=== PATIENT | male | born 1940 | race Caucasian/White ===

== ENCOUNTER 2019-06-22 13:22 | Observation (INO) | payer OTHER ==
--- OUTSIDE RECORDS SUMMARY | 2019-06-22 13:26 | XMS REPORT | Clinical Summary ---
:1940 Author Organization [facility] Address [address] [place] [address] Care Team Providers Name Role Phone José Miguel Fish Primary Care Provider Hernandez Gabriel MD Unavailable Unavailable Allergies No Known Allergies Medications Medication Sig Dispensed Refills Start Date End Date Status pantoprazole (PROTONIX) Take 40 mg by 0 Active 40 MG tablet mouth daily. LORazepam (ATIVAN) 1 MG Take 2-4 mg by 0 Active tablet mouth every night as needed. lisinopril Take 5 mg by 0 Active (PRINIVIL,ZESTRIL) 5 MG mouth 2 (two) tablet times daily. carvedilol (COREG) 6.25 Take 6.25 mg by 0 Active MG tablet mouth 2 (two) times daily with breakfast and dinner. aspirin 81 mg Tab Take 1 tablet (81 60 each 0 03/11/2014 Active mg total) by mouth daily. simvastatin (ZOCOR) 40 Take 40 mg by 0 Active MG tablet mouth nightly. warfarin (COUMADIN) 5 5 mg daily. With 0 03/20/2014 Active MG tablet 1 mg tablet for total dose 6 mg daily furosemide (LASIX) 40 Take 40 mg by 0 Active MG tabletIndications: mouth daily. Dilated cardiomyopathy (HCC), Ischemic cardiomyopathy, History of atrial fibrillation, History of sick sinus syndrome, History of ventricular tachycardia, Chronic anticoagulation, Hyperlipemia, Type 2 diabetes mellitus (HCC), Dilated cardiomyopathy (HCC), Anemia, CHF (congestive heart failure), chronic, systolic, CAD, multiple vessel, Hyperlipidemia, Endocarditis warfarin (COUMADIN) 1 Take 1 tablet (1 60 tablet 4 10/14/2014 Active MG tabletIndications: mg total) by Dilated cardiomyopathy mouth daily. With (HCC), Ischemic 5 mg tablet for cardiomyopathy, History total dose 6 mg of atrial fibrillation, daily History of sick sinus syndrome, History of ventricular tachycardia, Chronic anticoagulation, Hyperlipemia, Type 2 diabetes mellitus (HCC), Dilated cardiomyopathy (HCC), Anemia, CHF (congestive heart failure), chronic, systolic, CAD, multiple vessel, Hyperlipidemia, Endocarditis Active Problems Patient Care Coordination Note 1. Ischemic Cardiomyopathy- s/p TX in 03/25/2012. 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 6) Prostatism s/p TURP X 4 - this was complicated by incontinence- he uses a bladder stimulator - biggest problem - frequent urination 7) colonoscopy with polyp removals 8) bilateral carpel tunnel procedures 9) h/o tobacco abuse- quit in 1978 10) Chronic renal insufficiency CR 1.5 11) Chronic prostatism with TURP X 4 and chronic prostatism symptoms. Medications ASA 81 mgs daily Plavix 75 mgs daily Lisinopril 5 mgs bid Simvastatin 80 mgs daily Coreg 6.25bid Protonix 40 mgs daily Lorazepam 3 mgs qhs Calcium 1200 daily Vitamin D 1 gram daily Miralax prn Problem Noted Date Left inguinal hernia 07/11/2014 Endocarditis 03/12/2014 Overview: Probable vegetation at right atrial lead of the pacemaker per ECHO 02.12.2014, on ANCEF IV q 8 hours for 6 weeks Bacteremia 02/12/2014 Cellulitis of arm, left 02/11/2014 TIA (transient ischemic attack) 02/08/2014 Ischemic cardiomyopathy 10/04/2013 CAD, multiple vessel 08/02/2013 Dilated cardiomyopathy, w/LVEF 35-45%, mild-mod MR, mod TR, RSVP 40-50 2012 mmHg per Echo 09/28/2012 History of atrial fibrillation 08/02/2013 History of sick sinus syndrome 08/02/2013 History of ventricular tachycardia, s/p AICD in 200708/02/2013 History of BPH, h/o TURP and bladder stimulator 08/02/2013 Chronic anticoagulation Hyperlipidemia Immunizations Name Dates Previously Given Next Due Influenza TIV (IM) 08/02/2013 Pneumococcal Conjugate 7-Valent 08/09/2010 Family History Medical History Relation Name Comments Cancer Brother colon Heart disease Maternal Aunt Alcohol abuse Maternal Grandfather Alcohol abuse Mother Liver disease Mother Relation Name Status Comments Brother Father in wwII Maternal Aunt heart attack Maternal Grandfather Mother Social History Tobacco Use Types Packs/Day Years Used Date Former Smoker 1 Quit: 08/09/1978 Smokeless Tobacco: Former User Quit: 08/09/1983 Alcohol Use Drinks/Week oz/Week Comments No Sex Assigned at Date Recorded Not on file Job Start Date Occupation Industry Not on file Not on file Not on file Travel History Travel Start Travel End No recent travel history available. Last Filed Vital Signs Not on file Plan of Treatment Health Maintenance Due Date Last Done Comments INFLUENZA VACCINE 07/31/2018 Implants Implanted Type Area Completion Supervisor Device Shelf Model / Identifier Expiration Serial / Date Lot Mesh,Surgipro 3x5" Mmimp - Sn/A Mesh Left: [employer] GUILLAUME 01/28/2019 SPM-35 / Implanted: Qty: 1 on 07/12/2014 by Latoya Abraham MD [facility] N/A / [id number] Results Not on fileafter 06/21/2018 Insurance Payer Benefit Plan / Subscriber ID Type Phone Address Group [employer] - MEDICARE [employer] MEDICARE HMO xxxxxxxx [phone] [address] [place] [id number] Advance Directives For more information, please contact:[address] [place], [place] [phone] Code Status Date Activated Date Inactivated Comments Full Code 07/12/2014 11:10 AM 07/16/2014 7:22 PM This code status was determined by: Patient Full Code 07/11/2014 4:08 PM 07/12/2014 11:10 AM This code status was determined by: Patient Code ONE 02/08/2014 12:40 PM 02/15/2014 4:29 PM All possible means of support , including: cardiac massage, mechanical ventilation, and defibrillation will be used to support life. Code ONE 01/28/2014 12:05 PM 01/28/2014 3:00 PM All possible means of support , including: cardiac massage, mechanical ventilation, and defibrillation will be used to support life.
--- OUTSIDE RECORDS SUMMARY | 2019-06-22 13:27 | XMS REPORT | Continuity of Care Document ---
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 [facility] infarction [facility] AMI Active [facility] NOS-INITIAL Medical EPISODE Center Medications Medication Details Route Status Patient Ordering Order Source Instructions Provider Date Nitrostat 0.4 0.4 mg, 1 tab, SL Active [place] mg sublingual SL, Q5Min, 012 Medical tablet PRN, 100 tab, Center Chest Pain, Substitution Allowed carvedilol 3.125 mg, 1 PO Active Krishnan [place] 3.125 mg oral tab, PO, Q12H, 012 Medical tablet 60 tab, 3, 3, Center Substitution Allowed, TAB atorvastatin 80 80 mg, 1 tab, PO Active Krishnan [place] mg oral tablet PO, Bedtime, 012 Medical 30 tab, 3, 3, Center Substitution Allowed, TAB aspirin 325 mg 325 mg, 1 tab, PO Active Krishnan [place] tablet, enteric PO, Daily, 30 012 Medical coated tab, 3, 3, Center Substitution Allowed, ECTAB lisinopril 5 mg 2.5 mg, 0.5 PO Active Krishnan [facility] oral tablet tab, PO, Q12H, 012 Medical 30 tab, 3, 3, Center Substitution Allowed, TAB Fleet Enema 133 ml, Route: CO No Trey [facility] CO, Drug Form: Longer 012 Medical MARINA, ONCE, Active Center Start date: 03/28/12 17:30:00, Stop date: 03/28/12 17:30:00 lactulose 20 gm, 30 mL, PO No Trey [facility] Route: PO, Longer 012 Medical Drug Form: Active Center SYRP, Q2H, times 2 doses, Start date: 03/28/12 10:00:00, Duration: 2 doses or times, Stop date: 03/28/12 12:00:00 MiraLax 17 gm, 1 pkt, PO No David [facility] Route: PO, Longer 012 Medical Drug form: Active Center PWDR, ONCE, Start date: 03/27/12 18:09:00, Duration: 1 doses or times, Stop date: 03/27/12 18:09:00 isosorbide 10 mg, 1 tab, PO No Dabaghi [facility] dinitrate Route: PO, Longer 012 Medical Drug form: Active Center TAB, BID, Start date: 03/27/12 9:00:00, Duration: 30 day, Stop date: 04/25/12 17:00:00 ondansetron 4 mg, 2 mL, IV No [place] [facility] Route: IV, Longer 012 Medical Drug form: Active Center INJ, Q6H, PRN Nausea, Start date: 03/26/12 18:45:00, Duration: 30 day, Stop date: 04/25/12 18:44:00 Protonix 40 mg, 1 tab, PO No John [facility] Route: PO, Longer 012 Medical Drug form: Active Center ECTAB, Before Dinner, Start date: 03/26/12 16:30:00, Duration: 30 day, Stop date: 04/24/12 16:30:00 clopidogrel 75 mg, 1 tab, PO No Griffin [facility] Route: PO, Longer Azucena 012 Medical Drug form: Active Center TAB, Daily, Start date: 03/26/12 9:00:00, Duration: 30 day, Stop date: 04/24/12 9:00:00 nitroglycerin 0.5 inch, TOP No Dabaghi [facility] 2% topical Route: TOP, Longer 012 Medical ointment Drug Form: Active Center OINT, Q6H, Start date: 03/26/12 0:00:00, Duration: 30 day, Stop date: 04/24/12 18:00:00 metoprolol 100 100 mg, 1 tab, PO No [place] mg oral tablet PO, Daily, 180 Longer 012 Medical tab, Active Center Substitution Allowed, TAB Vitamin D 800 IntlUnit, Active [place] Substitution 012 Medical Allowed Center calcium 1,200 mg, Active [place] carbonate Substitution 012 Medical Allowed Center omeprazole 40 40 mg, 1 cap, PO Active [place] mg oral delayed PO, Daily, 90 012 Medical release capsule cap, Center Substitution Allowed, DRC lisinopril 5 mg 5 mg, 1 tab, PO No [place] oral tablet PO, Daily, 90 Longer 012 Medical tab, Active Center Substitution Allowed, TAB simvastatin unknown, PO, PO No [place] Daily, 30 tab, Longer 012 Medical Substitution Active Center Allowed Ativan 2 mg 2-3 tab, PO, PO Active [facility] oral tablet Bedtime, PRN, 012 Medical 20 tab, Center Anxiety, Substitution Allowed lisinopril 2.5 mg, 0.5 PO No Griffin [facility] tab, Route: Longer Azucena 012 Medical PO, Drug form: Active Center TAB, Q12H, Start date: 03/25/12 22:00:00, Duration: 30 day, Stop date: 04/24/12 21:00:00 aspirin 325 mg 325 mg, 1 tab, PO No Griffin [facility] tablet, enteric Route: PO, Longer Azucena 012 Medical coated Drug form: Active Center TAB, Daily, Start date: 03/25/12 22:00:00, Duration: 30 day, Stop date: 04/24/12 9:00:00 atorvastatin 80 mg, 1 tab, PO No Griffin [facility] Route: PO, Longer Azucena 012 Medical Drug form: Active Center TAB, Bedtime, Start date: 03/25/12 22:00:00, Duration: 30 day, Stop date: 04/24/12 21:00:00 morphine 2 mg, 1 mL, IVP No Griffin [facility] Sulfate Route: IVP, Longer Azucena 012 Medical Drug form: Active Center INJ, ONCE, Start date: 03/25/12 22:00:00, Stop date: 03/25/12 22:00:00 carvedilol 3.125 mg, 1 PO No Griffin [facility] tab, Route: Longer Azucena 012 Medical PO, Drug form: Active Center TAB, Q12H, Start date: 03/25/12 21:00:00, Duration: 30 day, Stop date: 04/24/12 9:00:00 LORAzepam 2 mg, 1 mL, PO No Griffin [facility] Route: PO, Longer Azucena 012 Medical Drug form: Active Center SUSP, Bedtime, PRN Insomnia, Start date: 03/25/12 20:52:00, Stop date: 04/24/12 20:51:00 Nubain 2 mg, 0.2 mL, IVP No Trey [facility] Route: IVP, Mary Mireles Medical Drug form: Active Center INJ, Q3H, PRN Pain Score 1-3, Start date: 03/25/12 20:04:00, Duration: 30 day, Stop date: 04/24/12 20:03:00 nitroglycerin 0.4 mg, 1 tab, SL No Griffin [facility] SL Tab Route: SL, Longer Azucena 012 Medical Drug form: Active Center TAB, Q5Min, PRN Chest Pain, Start date: 03/25/12 20:04:00, Duration: 3 doses or times, Stop date: Limited # of times Sodium Chloride 500 mL, Rate: IV No Lupillo [facility] 0.9% IV 500 mL 30 ml/hr, [facility] Medical Infuse over: Active Center 16.7 hr, Route: IV, Dosing Weight 79.545 kg, Total Volume: 500, Start date: 03/25/12 20:04:00, Duration: 30 day, Stop date: 04/24/12 20:03:00 Heparin - 25,000 unit, IV No Dabaghi [facility] infusion (ACS 500 mL, Rate: Longer 012 Medical Protocol) Start at 13 Active Center heparin 25,000 units/kg/hr - units in D5W adjust per ACS 500 mL Premix protocol, 25,000 unit Route: IV, Total Volume: 500 ml, Start date: 03/25/12 20:04:00, Duration: 30 day, Stop date: 04/24/12 20:03:00, Replace Every: 24 hr Allergies, Adverse Reactions, Alerts No Known Medication Allergies Immunizations No Data Provided for This Section Results Order Name Results Value Reference Date Interpretation Comments Source Range CHEMISTRY CK MB Index 1.6 0.0 - 2.5 03/29 Normal [facility] CHEMISTRY CK MB 3.0 0.5 - 3.6 03/29 Normal [facility] CHEMISTRY Total CK 188 12 - 191 03/29 Normal [facility] CHEMISTRY CK MB Index 1.6 0.0 - 2.5 03/28 Normal [facility] CHEMISTRY CK MB 6.4 0.5 - 3.6 03/28 [facility] CHEMISTRY Total CK 401 12 - 191 03/28 [facility] CHEMISTRY Magnesium 2.0 1.8 - 2.4 03/28 Normal [facility] CHEMISTRY Troponin-I 23.00 0.00 - 03/28 CRIT <sup>9</sup>Res [facility] 0.40 /2012 ult Comment: Medical Critical Center Result(s) called to charmaine acevedo at _03/28/2012 4:47 by_lg. Read back OK. CHEMISTRY Troponin-T 4.180 0.000 - 03/28 CRIT <sup>6</sup>Res [facility] 0.100 /2011 ult Comment: Medical Critical Center Result(s) called to wilmer krishnan at 03/28/2012 4:45 by tac. Read back OK. CHEMISTRY AGAP 11.7 10.0 - 03/28 Normal [place] .0 Medical Center CHEMISTRY CO2 28 24 - 32 03/28 Normal [facility] CHEMISTRY Calcium Lvl 7.9 8.5 - 10.5 03/28 LOW [facility] CHEMISTRY Chloride Lvl 105 95 - 109 03/28 Normal [facility] CHEMISTRY Potassium 4.7 3.5 - 5.1 03/28 Normal [facility] CHEMISTRY Sodium Lvl 140 135 - 145 03/28 Normal [facility] CHEMISTRY Creatinine 1.1 0.5 - 1.4 03/28 Normal [facility] CHEMISTRY BUN 21 7 - 22 03/28 Normal [facility] CHEMISTRY Glucose Lvl 114 70 - 99 03/28 HI <sup>3</sup>Int erpretive Data: Medical Adult reference Center range values reflect the clinical guidelines of the [place] [employer]. CHEMISTRY Phosphorus 2.8 2.5 - 4.5 03/28 Normal [facility] HEMATOLOGY PT 15.8 12.0 - 03/28 [place] 14.7 [facility] HEMATOLOGY INR 1.26 0.85 - 03/28 HI <sup>14</sup>In [facility] 1. terpretive Medical Data: Center RECOMMENDED RANGES FOR PROTIME INR: 2.0-3.0 for most medical and surgical thromboembolic states. 2.5-3.5 for artificial heart valves and recurrent embolism. INR SHOULD BE USED ONLY FOR PATIENTS ON STABLE ANTICOAGULANT THERAPY. HEMATOLOGY PTT 30.2 22.9 - 03/28 Normal <sup>17</sup>In [facility] 35.8 terpretive Medical Data: Heparin Center Therapeutic Range: 57 - 92 Seconds HEMATOLOGY RBC 3.93 4.70 - 03/28 LOW [place] 6.10 [facility] HEMATOLOGY Hgb 12.4 14.0 - 03/28 [facility] 18.0 [facility] HEMATOLOGY Platelet 88 133 - 450 03/28 LOW [facility] HEMATOLOGY MCH 31.6 27.0 - 03/28 HI [place] 31.0 [facility] HEMATOLOGY MCHC 33.3 32.0 - 03/28 Normal [place] 36.0 [facility] HEMATOLOGY MPV 8.1 7.4 - 10.4 03/28 Normal [facility] HEMATOLOGY MCV 94.8 80.0 - 03/28 HI [place] 94.0 /2011 [facility] HEMATOLOGY RDW 14.0 11.5 - 03/28 Normal [place] 14.5 [facility] HEMATOLOGY WBC 7.3 3.7 - 10.4 03/28 Normal [facility] HEMATOLOGY Hct 37.2 42.0 - 03/28 LOW [place] 54.0 /2011 [facility] CHEMISTRY CK MB Index 3.2 0.0 - 2.5 03/27 [facility] CHEMISTRY CK MB 34.7 0.5 - 3.6 03/27 [facility] CHEMISTRY Myoglobin 142 25 - 72 03/27 [facility] CHEMISTRY Troponin-T 5.710 0.000 - 03/27 CRIT <sup>7</sup>Res [facility] 0.100 /2011 ult Comment: Medical Critical Center Result(s) called to Mata Lazo at _03/27/2012 6:30 by_.tvs Read back OK. CHEMISTRY Calcium Lvl 7.8 8.5 - 10.5 03/27 LOW Medical Center CHEMISTRY CO2 27 24 - 32 03/27 Normal Medical Center CHEMISTRY Chloride Lvl 107 95 - 109 03/27 Normal Medical Center CHEMISTRY Potassium 4.6 3.5 - 5.1 03/27 Normal [facility] Medical Center CHEMISTRY BUN 20 7 - 22 03/27 Normal Medical Center CHEMISTRY Glucose Lvl 113 70 - 99 03/27 HI <sup>4</sup>Int erpretive Data: Medical Adult reference Center range values reflect the clinical guidelines of the Citizen [place] [employer]. CHEMISTRY Sodium Lvl 142 135 - 145 03/27 Normal [facility] CHEMISTRY Creatinine 1.4 0.5 - 1.4 03/27 Normal [facility] CHEMISTRY AGAP 12.6 10.0 - 03/27 Normal [facility] 20.0 [facility] CHEMISTRY Magnesium 2.2 1.8 - 2.4 03/27 Normal [facility] Medical Center CHEMISTRY Total CK 1092 12 - 191 03/27 [facility] CHEMISTRY Phosphorus 2.2 2.5 - 4.5 03/27 LOW Medical Center HEMATOLOGY PT 16.1 12.0 - 03/27 HI [facility] 14.7 Medical Center HEMATOLOGY PTT 65.5 22.9 - 03/27 HI <sup>18</sup>In [facility] 35.8 /2011 terpretive Medical Data: Heparin Center Therapeutic Range: 57 - 92 Seconds HEMATOLOGY INR 1.29 0.85 - 03/27 HI <sup>15</sup>In [facility] 1.17 terpretive Medical Data: Center RECOMMENDED RANGES FOR PROTIME INR: 2.0-3.0 for most medical and surgical thromboembolic states. 2.5-3.5 for artificial heart valves and recurrent embolism. INR SHOULD BE USED ONLY FOR PATIENTS ON STABLE ANTICOAGULANT THERAPY. HEMATOLOGY WBC 7.6 3.7 - 10.4 03/27 Normal [facility] HEMATOLOGY Hgb 12.2 14.0 - 03/27 [facility] 18.0 /2011 [facility] HEMATOLOGY RBC 3.87 4.70 - 03/27 [facility] 6.10 /2011 [facility] HEMATOLOGY Hct 36.5 42.0 - 03/27 [facility] [place] 54.0 /2011 [facility] HEMATOLOGY MCH 31.5 27.0 - 03/27 [facility] [place] 31.0 /2011 [facility] HEMATOLOGY MCHC 33.5 32.0 - 03/27 [facility] 36.0 /2011 [facility] HEMATOLOGY MCV 94.1 80.0 - 03/27 [facility] 94.0 /2011 [facility] HEMATOLOGY RDW 14.2 11.5 - 03/27 [facility] 14.5 [facility] HEMATOLOGY Platelet 94 133 - 450 03/27 [facility] /2011 [facility] HEMATOLOGY MPV 7.5 7.4 - 10.4 03/27 Normal [facility] HEMATOLOGY PT 16.0 12.0 - 03/27 [facility] 14.7 /2011 [facility] HEMATOLOGY INR 1.28 0.85 - 03/27 HI <sup>16</sup>In [facility] 1.17 terpretive Medical Data: Center RECOMMENDED RANGES FOR PROTIME INR: 2.0-3.0 for most medical and surgical thromboembolic states. 2.5-3.5 for artificial heart valves and recurrent embolism. INR SHOULD BE USED ONLY FOR PATIENTS ON STABLE ANTICOAGULANT THERAPY. HEMATOLOGY PTT 54.5 22.9 - 03/27 HI <sup>19</sup>In [facility] 35.8 terpretive Medical Data: Heparin Center Therapeutic Range: 57 - 92 Seconds CHEMISTRY Troponin-I >40 ng/mL 10 0.00 - 03/26 CRIT <sup>10</sup>Re [facility] *CRIT* 0.40 sult Comment: Medical (03/26/2012 10:18:00) Critical Center Result(s) called to paz turner at _03/26/2012 11:49 by_lss. Read back OK. CHEMISTRY Troponin-T 8.960 0.000 - 03/26 CRIT <sup>8</sup>Res [facility] 0.100 /2011 ult Comment: Medical Critical Center Result(s) called to Paz Diez at 03/26/2012 11:20 by Juan Francisco. Read back OK. CHEMISTRY Myoglobin 396 25 - 72 03/26 [facility] BACTERIAL - MRSA by PCR Positive 1, 2 03/26 ABN <sup>1</sup>Res [facility] SEROLOGY *ABN* /2011 ult Comment: Medical (03/26/2012 04:00:00) "Significant Center Findings called to William Montejo w/MADHAV at 03/26/2012 13:30 by ROBINSON. Read Back OK."
<sup>2 </sup>Interpret sreedhar Data: INTERPRETATION: Negative......N o MRSA DNA detected by PCR Positive......M RSA DNA detected by PCR ASSAY LIMITATIONS: This is a screening test for colonization by MRSA. A positive test result indicates the patient is colonized by MRSA, but does not necessarily mean that an infection is present or that treatment is necessary. Likewise, a negative test does not exclude colonization or infection. Patients should be evaluated clinically for symptoms and signs of infection before making therapeutic decisions. Routine decolonization is discouraged and should only be considered for select patients after consultation with an infectious diseases specialist. CHEMISTRY Troponin-I >40 ng/mL 11 0.00 - 03/26 CRIT <sup>11</sup>Re [facility] *CRIT* 0.40 /2011 sult Comment: Medical (03/26/2012 03:50:00) Critical Center Result(s) called to Disha Solis at 03/26/2012 5:23 by howard. Read back OK. CHEMISTRY AGAP 14.5 10.0 - 03/26 Normal [facility] 20.0 Medical Center CHEMISTRY Sodium Lvl 140 135 - 145 03/26 Normal Medical Center CHEMISTRY Creatinine 1.3 0.5 - 1.4 03/26 Normal [facility] Lvl /2011 Medical Center CHEMISTRY BUN 24 7 - 22 03/26 [facility] CHEMISTRY Glucose Lvl 137 70 - 99 03/26 HI <sup>5</sup>Int erpretive Data: [facility] Adult reference Center range values reflect the clinical guidelines of the [place] [employer]. CHEMISTRY Calcium Lvl 8.0 8.5 - 10.5 03/26 [facility] CHEMISTRY CO2 24 24 - 32 03/26 [facility] Medical Center CHEMISTRY Chloride Lvl 106 95 - 109 03/26 [facility] CHEMISTRY Potassium 4.5 3.5 - 5.1 03/26 [facility] CHEMISTRY Magnesium 2.2 1.8 - 2.4 03/26 [facility] CHEMISTRY Phosphorus 3.9 2.5 - 4.5 03/26 [facility] Medical Center CHEMISTRY Myoglobin 670 25 - 72 03/26 [facility] Medical Center CHEMISTRY CHD Risk 2.43 4.00 - 03/26 [facility] 7.30 Medical Center CHEMISTRY LDL 58 0 - 129 03/26 [facility] CHEMISTRY HDL 46 >=35 03/26 [facility] Medical [place] CHEMISTRY Chol 112 120 - 200 03/26 [facility] CHEMISTRY Trig 41 0 - 200 03/26 [facility] CHEMISTRY Hgb A1C 6.4 03/26 NA <sup>12</sup>In terpretive Medical Data: HbA1C% Center eAG(mg/dL) Interpretation 6.0 126 Very good control 6.5 140 Very good control 7.0 154 Good Control 7.5 169 Good Control 8.0 183 Marginal Control, take action to lower 8.5 197 Marginal Control, take action to lower 9.0 212 Poor Control, take action to lower 9.5 226 Poor Control, take action to lower 10.0 240 Poor Control, take action to lower HEMATOLOGY MPV 7.9 7.4 - 10.4 03/26 [facility] HEMATOLOGY Platelet 136 133 - 450 03/26 [facility] HEMATOLOGY RDW 14.5 11.5 - 03/26 [facility] [place] 14.5 Medical Center HEMATOLOGY MCHC 33.5 32.0 - 03/26 [facility] [place] 36.0 Medical Center HEMATOLOGY MCH 31.5 27.0 - 03/26 [facility] [place] 31. Medical Center HEMATOLOGY MCV 94.1 80.0 - 03/26 [facility] [place] 94.0 /2011 Medical Center HEMATOLOGY Hct 39.1 42.0 - 03/26 [facility] [place] 54.0 /2011 Medical Center HEMATOLOGY Hgb 13.1 14.0 - 03/26 [facility] 18.0 /2011 [facility] HEMATOLOGY RBC 4.16 4.70 - 03/26 [facility] [place] 6.10 /2011 [facility] HEMATOLOGY WBC 7.4 3.7 - 10.4 03/26 Normal [facility] HEMATOLOGY Eosinophils 0.0 0.0 - 0.5 03/26 Normal [place] # /2011 [facility] HEMATOLOGY Basophils # 0.0 0.0 - 0.2 03/26 Normal [facility] HEMATOLOGY Eosinophils 0.0 0.0 - 4.0 03/26 [facility] HEMATOLOGY Segs-Bands # 5.6 1.5 - 8.1 03/26 Normal [facility] HEMATOLOGY Basophils 0.3 0.0 - 1.0 03/26 [facility] HEMATOLOGY Monocytes # 0.9 0.0 - 0.8 03/26 [facility] HEMATOLOGY Lymphocytes 0.9 1.0 - 5.5 03/26 LOW [facility] # /2011 [facility] HEMATOLOGY Segs 75.8 45.0 - 03/26 [facility] [place] 75.0 [facility] HEMATOLOGY Monocytes 12.1 2.0 - 12.0 03/26 [facility] HEMATOLOGY Lymphocytes 11.8 20.0 - 03/26 [facility] 40.0 /2011 [facility] CHEMISTRY Trig 40 0 - 200 03/26 Normal [facility] CHEMISTRY HDL 44 >=35 03/26 Normal [facility] CHEMISTRY Chol 111 120 - 200 03/26 [facility] CHEMISTRY LDL 59 0 - 129 03/26 Normal [facility] CHEMISTRY CHD Risk 2.52 4.00 - 03/26 [facility] 7.30 [facility] CHEMISTRY Hgb A1C 6.7 03/26 NA <sup>13</sup>In terpretive Medical Data: HbA1C% Center eAG(mg/dL) Interpretation 6.0 126 Very good control 6.5 140 Very good control 7.0 154 Good Control 7.5 169 Good Control 8.0 183 Marginal Control, take action to lower 8.5 197 Marginal Control, take action to lower 9.0 212 Poor Control, take action to lower 9.5 226 Poor Control, take action to lower 10.0 240 Poor Control, take action to lower HEMATOLOGY Lymphocytes 0.4 1.0 - 5.5 03/26 LOW [facility] # /2012 [facility] HEMATOLOGY Monocytes # 0.2 0.0 - 0.8 03/26 Normal [facility] HEMATOLOGY Basophils 0.0 0.0 - 1.0 03/26 Normal [facility] HEMATOLOGY Segs-Bands # 8.3 1.5 - 8.1 03/26 HI [facility] HEMATOLOGY Eosinophils 0.0 0.0 - 4.0 03/26 Normal [facility] HEMATOLOGY Eosinophils 0.0 0.0 - 0.5 03/26 Normal [facility] HEMATOLOGY Lymphocytes 4.8 20.0 - 03/26 LOW [place] 40.0 [facility] HEMATOLOGY Monocytes 2.8 2.0 - 12.0 03/26 Normal [facility] HEMATOLOGY Basophils # 0.0 0.0 - 0.2 03/26 Normal [facility] HEMATOLOGY Segs 92.4 45.0 - 03/26 [facility] [place] 75.0 [facility] Pathology Reports No Data Provided for This Section Diagnostic Reports No Data Provided for This Section Consultation Notes No Data Provided for This Section Discharge Summaries No Data Provided for This Section History and Physicals No Data Provided for This Section Vital Signs Vital Sign Value Date Comments Source Diastolic (mm Hg) 63 03/29/2012 [facility] Systolic (mm Hg) 103 03/29/2012 [facility] Respitory Rate 26 03/29/2012 [facility] Diastolic (mm Hg) 63 03/29/2012 [facility] Respitory Rate 15 03/29/2012 [facility] Systolic (mm Hg) 113 03/29/2012 [facility] Respitory Rate 48 03/29/2012 [facility] Temperature Oral (F) 98.3 F 03/29/2012 [facility] Systolic (mm Hg) 110 03/29/2012 [facility] Diastolic (mm Hg) 64 03/29/2012 [facility] Temperature Oral (F) 99.2 F 03/29/2012 [facility] Temperature Oral (F) 99.4 F 03/29/2012 [facility] Height 175.26 cm 03/26/2012 [facility] Weight 73.400 03/26/2012 [facility] Encounters Location Location Encounter Encounter Reason Attending ADM DC Status Source Details Type Number For Provider Date Date Visit [facility] Inpatient [id number] [facility] 03/25 03/[address] [facility] /2011 [facility] [id number] [facility] Active [facility] Procedures No Data Provided for This Section Assessment and Plan No Data Provided for This Section Plan of Care No Data Provided for This Section Social History No Data Provided for This Section Family History No Data Provided for This Section Advance Directives No Data Provided for This Section Functional Status No Data Provided for This Section
--- OUTSIDE RECORDS SUMMARY | 2019-06-22 13:27 | XMS REPORT ---
:1940 [facility] [address] [place] [address] Care Team Providers Name Role Phone Unavailable Unavailable Unavailable Problems This patient has no known problems. Allergies, Adverse Reactions, Alerts This patient has no known allergies or adverse reactions. Medications This patient has no known medications. Encounters Start End Encounter Admission Attending Care Care Encounter Date/Time Date/Time Type Type Clinicians Facility Department ID 2019-06-06 Outpatient [id number] 12:34:12 Results Test Description Test Time Test Comments Text Results Atomic Results Result Comments CT, VIRTUAL COLONOSCOPY, 2018-02-22 12:39:00 FINAL REPORT PATIENT ID: DIAGNOSTIC WITHOUT CONTRAST [id number] HISTORY : V58.61 Technique: Multiple axial images of the abdomen and pelvis were performed without the administration of IV or oral contrast after the insufflation of the colon with air. Images were obtained in both the supine and prone positions. This exam was performed according to our departmental dose optimization program which includes automated exposure control, adjustment of the mA and/or kV according to patient size and/or use of iterative reconstructive technique. COMPARISON : 08/22/2012 COMMENT : There is bibasilar linear subsegmental atelectasis versus scarring. The patient does have cardiomegaly. The visualized liver, adrenal glands, gallbladder, pancreas and duodenum are within normal limits. There is a small sized hiatal hernia. The kidneys are atrophic. There is some nonspecific bilateral perinephric stranding/edema. Arising from the upper pole of the right kidney, there is a 1.5 cm stable likely cyst. There is atherosclerotic vascular disease. 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 Leads are seen in the heart/around the heart. A stimulator device is seen in the right buttock subcutaneous fat with a lead extending through the sacrum. There is no abdominal, retroperitoneal or pelvic lymphadenopathy. Multilevel degenerative disc changes of the thoracolumbar spine are seen. There is a small left-sided fat-containing inguinal hernia. There is no free fluid or free air in the abdomen or pelvis. No findings of any bowel obstruction. The small bowel is within normal limits. The appendix is visualized. There are no CT findings to suggest appendicitis. Some likely radiation seeds are seen within/around the prostate gland. The seminal vesicles are grossly within normal limits. A stent is identified in the right external iliac artery. Of note, the virtual colonoscopy portion of the examination is limited due to areas of poor colonic distention as well as a small amount of fluid within the colon. Evaluation for polyps less than 1 cm in size is limited. There is colonic diverticulosis. There are no CT findings to suggest diverticulitis, however. As seen on the prior exam, there is some mild wall thickening of the sigmoid colon, not as pronounced as compared to the prior exam. This wall thickening may be accounted for by incomplete distention and/or mild colonic diverticulosis. No pericolonic inflammatory changes are seen. Of note, evaluation for a mass at this area of thickening is limited. As clinically warranted, findings can be correlated with colonoscopy. However, taking into account the preceding limitations, no definite obstructing or constricting colonic masses are visualized. Impression: Persistent mild wall thickening of the sigmoid colon that may be accounted for by incomplete distention and/or mild colonic diverticulosis. The extent and degree of wall thickening has diminished as compared to the prior exam. No definite obstructing or constricting colonic masses are identified. Please see above for details. Signed: Evelyn Fajardo MDReport Verified Date/Time: 02/22/2018 12:39:49 Reading Location: [address] Reading Room
--- OUTSIDE RECORDS SUMMARY | 2019-06-22 13:27 | XMS REPORT | CCD ---
:[address] [facility] Care Team Providers Name Role Phone Renee Wesley Consulting Provider Nikolas Isaac Louis Referring Provider [phone] Allergies, Adverse Reactions, Alerts Substance Reaction Status NKDA Active Problem List Condition Effective Dates Status Chest pain < 03/29/2012 Resolved MRSA1, 2 Active Myocardial infarction Active - [id number] added by Discern Expert. Medications Medication Instructions Start Date End Date Status Nubain 2 mg, 0.2 mL, Route: 03/25/2012 03/28/2012 Discontinued IVP, Drug form: INJ, Q3H, PRN Pain Score 1-3, Start date: 03/25/12 20:04:00, Duration: 30 day, Stop date: 04/24/12 20:03:00 clopidogrel 75 mg, 1 tab, Route: PO, 03/26/2012 03/29/2012 Discontinued Drug form: TAB, Daily, Start date: 03/26/12 9:00:00, Duration: 30 day, Stop date: 04/24/12 9:00:00 carvedilol 3.125 mg, 1 tab, Route: 03/25/2012 03/29/2012 Discontinued PO, Drug form: TAB, Q12H, Start date: 03/25/12 21:00:00, Duration: 30 day, Stop date: 04/24/12 9:00:00 lisinopril 2.5 mg, 0.5 tab, Route: 03/25/2012 03/29/2012 Discontinued PO, Drug form: TAB, Q12H, Start date: 03/25/12 22:00:00, Duration: 30 day, Stop date: 04/24/12 21:00:00 nitroglycerin SL Tab 0.4 mg, 1 tab, Route: 03/25/2012 03/29/2012 Discontinued SL, Drug form: TAB, Q5Min, PRN Chest Pain, Start date: 03/25/12 20:04:00, Duration: 3 doses or times, Stop date: Limited # of times Sodium Chloride 0.9% IV 500 mL, Rate: 30 ml/hr, 03/25/2012 03/27/2012 Discontinued 500 mL Infuse over: 16.7 hr, Route: IV, Dosing Weight 79.545 kg, Total Volume: 500, Start date: 03/25/12 20:04:00, Duration: 30 day, Stop date: 04/24/12 20:03:00 aspirin 325 mg tablet, 325 mg, 1 tab, Route: 03/25/2012 03/29/2012 Discontinued enteric coated PO, Drug form: TAB, Daily, Start date: 03/25/12 22:00:00, Duration: 30 day, Stop date: 04/24/12 9:00:00 atorvastatin 80 mg, 1 tab, Route: PO, 03/25/2012 03/29/2012 Discontinued Drug form: TAB, Bedtime, Start date: 03/25/12 22:00:00, Duration: 30 day, Stop date: 04/24/12 21:00:00 Fleet Enema 133 ml, Route: UT, Drug 03/28/2012 03/28/2012 Completed Form: MARINA, ONCE, Start date: 03/28/12 17:30:00, Stop date: 03/28/12 17:30:00 omeprazole 40 mg oral 40 mg, 1 cap, PO, Daily, 03/25/2012 Ordered delayed release capsule 90 cap, Substitution Allowed, DRC lisinopril 5 mg oral 5 mg, 1 tab, PO, Daily, 03/25/2012 03/29/2012 Discontinued tablet 90 tab, Substitution Allowed, TAB simvastatin unknown, PO, Daily, 30 03/25/2012 03/29/2012 Discontinued tab, Substitution Allowed Ativan 2 mg oral tablet 2-3 tab, PO, Bedtime, 03/25/2012 Ordered PRN, 20 tab, Anxiety, Substitution Allowed isosorbide dinitrate 10 mg, 1 tab, Route: PO, 03/27/2012 03/29/2012 Discontinued Drug form: TAB, BID, Start date: 03/27/12 9:00:00, Duration: 30 day, Stop date: 04/25/12 17:00:00 ondansetron 4 mg, 2 mL, Route: IV, 03/26/2012 03/29/2012 Discontinued Drug form: INJ, Q6H, PRN Nausea, Start date: 03/26/12 18:45:00, Duration: 30 day, Stop date: 04/25/12 18:44:00 MiraLax 17 gm, 1 pkt, Route: PO, 03/27/2012 03/27/2012 Completed Drug form: PWDR, ONCE, Start date: 03/27/12 18:09:00, Duration: 1 doses or times, Stop date: 03/27/12 18:09:00 LORAzepam 2 mg, 1 mL, Route: PO, 03/25/2012 03/29/2012 Discontinued Drug form: SUSP, Bedtime, PRN Insomnia, Start date: 03/25/12 20:52:00, Stop date: 04/24/12 20:51:00 Nitrostat 0.4 mg 0.4 mg, 1 tab, SL, 03/29/2012 Ordered sublingual tablet Q5Min, PRN, 100 tab, Chest Pain, Substitution Allowed carvedilol 3.125 mg oral 3.125 mg, 1 tab, PO, 03/29/2012 Ordered tablet Q12H, 60 tab, 3, 3, Substitution Allowed, TAB nitroglycerin 2% topical 0.5 inch, Route: TOP, 03/26/2012 03/27/2012 Discontinued ointment Drug Form: OINT, Q6H, Start date: 03/26/12 0:00:00, Duration: 30 day, Stop date: 04/24/12 18:00:00 atorvastatin 80 mg oral 80 mg, 1 tab, PO, 03/29/2012 Ordered tablet Bedtime, 30 tab, 3, 3, Substitution Allowed, TAB aspirin 325 mg tablet, 325 mg, 1 tab, PO, 03/29/2012 Ordered enteric coated Daily, 30 tab, 3, 3, Substitution Allowed, ECTAB lisinopril 5 mg oral 2.5 mg, 0.5 tab, PO, 03/29/2012 Ordered tablet Q12H, 30 tab, 3, 3, Substitution Allowed, TAB Protonix 40 mg, 1 tab, Route: PO, 03/26/2012 03/29/2012 Discontinued Drug form: ECTAB, Before Dinner, Start date: 03/26/12 16:30:00, Duration: 30 day, Stop date: 04/24/12 16:30:00 Heparin - infusion (ACS 25,000 unit, 500 mL, 03/25/2012 03/27/2012 Discontinued Protocol) heparin 25,000 Rate: Start at 13 units in D5W 500 mL Premix units/kg/hr - adjust per 25,000 unit ACS protocol, Route: IV, Total Volume: 500 ml, Start date: 03/25/12 20:04:00, Duration: 30 day, Stop date: 04/24/12 20:03:00, Replace Every: 24 hr lactulose 20 gm, 30 mL, Route: PO, 03/28/2012 03/28/2012 Completed Drug Form: SYRP, Q2H, times 2 doses, Start date: 03/28/12 10:00:00, Duration: 2 doses or times, Stop date: 03/28/12 12:00:00 metoprolol 100 mg oral 100 mg, 1 tab, PO, 03/25/2012 03/29/2012 Discontinued tablet Daily, 180 tab, Substitution Allowed, TAB Vitamin D 800 IntlUnit, 03/25/2012 Ordered Substitution Allowed calcium carbonate 1,200 mg, Substitution 03/25/2012 Ordered Allowed morphine Sulfate 2 mg, 1 mL, Route: IVP, 03/25/2012 03/25/2012 Completed Drug form: INJ, ONCE, Start date: 03/25/12 22:00:00, Stop date: 03/25/12 22:00:00 Vital Signs Most recent to oldest 1 2 3 [Reference Range]: Height 175.26 cm (03/25/2012 20:52:00) Current Weight 73.000 kg (03/27/2012 05:36:00) Temperature Oral 98.3 DegF 99.2 DegF 99.4 DegF [96.4-99.1 DegF] (03/29/2012 08:14:00) *HI* *HI* (03/29/2012 04:00:00) (03/28/2012 23:00:00) Systolic Blood Pressure 103 mmHg 113 mmHg 110 mmHg [90-140 mmHg] (03/29/2012 10:37:00) (03/29/2012 08:57:00) (03/29/2012 07:00: 00) Diastolic Blood Pressure 63 mmHg 63 mmHg 64 mmHg [60-90 mmHg] (03/29/2012 10:37:00) (03/29/2012 08:57:00) (03/29/2012 07:00: 00) Respiratory Rate [14-20 26 BRMIN 15 BRMIN 48 BRMIN BRMIN] *HI* (03/29/2012 08:57:00) *HI* (03/29/2012 10:37:00) (03/29/2012 08:14:00) Weight 73.400 kg (03/25/2012 20:52:00) Results BACTERIAL - SEROLOGY Most recent to [Reference Range]: 1 2 3 MRSA by PCR Positive 1, 2 *ABN* (03/26/2012 04:00:00) 1Result Comment: "Significant Findings called to William mejía/MADHAV at 2011 13:30 by TC. Read Back OK."2Interpretive Data: INTERPRETATION: Negative......No MRSA DNA detected by PCR Positive......MRSA DNA detected by PCRASSAY LIMITATIONS:This is a screening test for colonization by MRSA. A positivetest result indicates the patient is colonized by MRSA, but does not necessarily mean that an infection is present or that treatment is necessary. Likewise, a negative test does not exclude colonization or infection. Patients should be evaluatedclinically for symptoms and signs of infection before making therapeutic decisions. Routine decolonization is discouraged and should only be considered forselect patients after consultation with an infectious diseases specialist.CHEMISTRY Most recent to oldest 1 2 3 [Reference Range]: Sodium Lvl [135-145 mEq/L] 140 mEq/L 142 mEq/L 140 mEq/L (03/28/2012 03:50:00) (03/27/2012 05:24:00) (03/26/2012 03:50:00) Potassium Lvl [3.5-5.1 4.7 mEq/L 4.6 mEq/L 4.5 mEq/L mEq/L] (03/28/2012 03:50:00) (03/27/2012 05:24:00) (03/26/2012 03:50:00) Chloride Lvl [95-109 mEq/L] 105 mEq/L 107 mEq/L 106 mEq/L (03/28/2012 03:50:00) (03/27/2012 05:24:00) (03/26/2012 03:50:00) CO2 [24-32 mEq/L] 28 mEq/L 27 mEq/L 24 mEq/L (03/28/2012 03:50:00) (03/27/2012 05:24:00) (03/26/2012 03:50:00) AGAP [10.0-20.0 mEq/L] 11.7 mEq/L 12.6 mEq/L 14.5 mEq/L (03/28/2012 03:50:00) (03/27/2012 05:24:00) (03/26/2012 03:50:00) Creatinine Lvl [0.5-1.4 1.1 mg/dL 1.4 mg/dL 1.3 mg/dL mg/dL] (03/28/2012 03:50:00) (03/27/2012 05:24:00) (03/26/2012 03:50:00) BUN [7-22 mg/dL] 21 mg/dL 20 mg/dL 24 mg/dL (03/28/2012 03:50:00) (03/27/2012 05:24:00) *HI* (03/26/2012 03:50:00) Glucose Lvl [70-99 mg/dL] 114 mg/dL 3 113 mg/dL 4 137 mg/dL 5 *HI* *HI* *HI* (03/28/2012 03:50:00) (03/27/2012 05:24:00) (03/26/2012 03:50:00) Calcium Lvl [8.5-10.5 7.9 mg/dL 7.8 mg/dL 8.0 mg/dL mg/dL] *LOW* *LOW* *LOW* (03/28/2012 03:50:00) (03/27/2012 05:24:00) (03/26/2012 03:50:00) Phosphorus [2.5-4.5 mg/dL] 2.8 mg/dL 2.2 mg/dL 3.9 mg/dL (03/28/2012 03:50:00) *LOW* (03/26/2012 03:50:00) (03/27/2012 05:24:00) Magnesium Lvl [1.8-2.4 2.0 mg/dL 2.2 mg/dL 2.2 mg/dL mg/dL] (03/28/2012 03:50:00) (03/27/2012 05:24:00) (03/26/2012 03:50:00) Total CK [12-191 U/L] 188 U/L 401 U/L 1092 U/L (03/29/2012 01:59:00) *HI* *HI* (03/28/2012 03:50:00) (03/27/2012 05:24:00) CK MB [0.5-3.6 ng/mL] 3.0 ng/mL 6.4 ng/mL 34.7 ng/mL (03/29/2012 01:59:00) *HI* *HI* (03/28/2012 03:50:00) (03/27/2012 05:24:00) CK MB Index [0.0-2.5] 1.6 1.6 3.2 (03/29/2012 01:59:00) (03/28/2012 03:50:00) *HI* (03/27/2012 05:24:00) Troponin-T [0.000-0.100 4.180 ng/mL 6 5.710 ng/mL 7 8.960 ng/mL 8 ng/mL] *CRIT* *CRIT* *CRIT* (03/28/2012 03:50:00) (03/27/2012 05:24:00) (03/26/2012 10:18:00) Troponin-I [0.00-0.40 23.00 ng/mL 9 >40 ng/mL 10 >40 ng/mL 11 ng/mL] *CRIT* *CRIT* *CRIT* (03/28/2012 03:50:00) (03/26/2012 10:18:00) (03/26/2012 03:50:00) Myoglobin [25-72 ng/mL] 142 ng/mL 396 ng/mL 670 ng/mL *HI* *HI* *HI* (03/27/2012 05:24:00) (03/26/2012 10:18:00) (03/26/2012 03:50:00) CHD Risk [4.00-7.30] 2.43 2.52 *LOW* *LOW* (03/26/2012 03:50:00) (03/25/2012 19:36:00) Chol [120-200 mg/dL] 112 mg/dL 111 mg/dL *LOW* *LOW* (03/26/2012 03:50:00) (03/25/2012 19:36:00) Trig [0-200 mg/dL] 41 mg/dL 40 mg/dL (03/26/2012 03:50:00) (03/25/2012 19:36:00) HDL [>=35 mg/dL] 46 mg/dL 44 mg/dL (03/26/2012 03:50:00) (03/25/2012 19:36:00) LDL [0-129 mg/dL] 58 mg/dL 59 mg/dL (03/26/2012 03:50:00) (03/25/2012 19:36:00) Hgb A1C 6.4 % 12 6.7 % 13 *NA* *NA* (03/26/2012 03:50:00) (03/25/2012 19:36:00) 3Interpretive Data: Adult reference range values reflect the clinical guidelinesof the [place] [employer].4Interpretive Data: Adult reference range values reflect the clinical guidelinesof the [place] [employer].5Interpretive Data: Adult reference range values reflect the clinical guidelinesof the [place] [employer].6Result Comment: Critical Result(s) called to wilmer krishnan at 03/28/2012 4:45 by tac. Read back OK.7Result Comment: Critical Result(s) called to Mata Lazo at _03/27/2012 6: 30 by_.tvs Read back OK.8Result Comment: Critical Result(s) called to Paz Diez at 03/26/2012 11:20 by Juan Francisco. Read back OK.9Result Comment: Critical Result(s) called to charmaine acevedo at _03/28/2012 4:47 by_lg. Read back OK.10Result Comment: Critical Result(s) called to paz turner at _03/26/2012 11 :49 by_lss. Read back OK.11Result Comment: Critical Result(s) called to Disha Solis at 03/26/2012 5:23 by howard. Read backOK.12Interpretive Data: HbA1C% eAG(mg/dL) Interpretation 6.0 126Very good control 6.5 140 Very good control 7.0 154 Good Control 7.5 169 Good Control 8.0 183 Marginal Control, take action to lower 8.5 197 Marginal Control, take action to lower 9.0 212 Poor Control, take action to lower 9.5 226 Poor Control, takeaction to lower10.0 240 Poor Control, take action to [id number] Data: HbA1C% eAG(mg/dL) Interpretation 6.0 126Very good control 6.5 140 Very good control 7.0 154 Good Control 7.5 169 Good Control 8.0 183 Marginal Control, take action to lower 8.5 197 Marginal Control, take action to lower 9.0 212 Poor Control, take action to lower 9.5 226 Poor Control, takeaction to lower10.0 240 Poor Control, take action to lowerHEMATOLOGY Most recent to oldest 1 2 3 [Reference Range]: WBC [3.7-10.4 K/CMM] 7.3 K/CMM 7.6 K/CMM 7.4 K/CMM (03/28/2012 03:50:00) (03/27/2012 05:24:00) (03/26/2012 03:50:00) RBC [4.70-6.10 M/CMM] 3.93 M/CMM 3.87 M/CMM 4.16 M/CMM *LOW* *LOW* *LOW* (03/28/2012 03:50:00) (03/27/2012 05:24:00) (03/26/2012 03:50:00) Hgb [14.0-18.0 g/dL] 12.4 g/dL 12.2 g/dL 13.1 g/dL *LOW* *LOW* *LOW* (03/28/2012 03:50:00) (03/27/2012 05:24:00) (03/26/2012 03:50:00) Hct [42.0-54.0 %] 37.2 % 36.5 % 39.1 % *LOW* *LOW* *LOW* (03/28/2012 03:50:00) (03/27/2012 05:24:00) (03/26/2012 03:50:00) MCV [80.0-94.0 fL] 94.8 fL 94.1 fL 94.1 fL *HI* *HI* *HI* (03/28/2012 03:50:00) (03/27/2012 05:24:00) (03/26/2012 03:50:00) MCH [27.0-31.0 pg] 31.6 pg 31.5 pg 31.5 pg *HI* *HI* *HI* (03/28/2012 03:50:00) (03/27/2012 05:24:00) (03/26/2012 03:50:00) MCHC [32.0-36.0 g/dL] 33.3 g/dL 33.5 g/dL 33.5 g/dL (03/28/2012 03:50:00) (03/27/2012 05:24:00) (03/26/2012 03:50:00) RDW [11.5-14.5 %] 14.0 % 14.2 % 14.5 % (03/28/2012 03:50:00) (03/27/2012 05:24:00) (03/26/2012 03:50:00) Platelet [133-450 K/CMM] 88 K/CMM 94 K/CMM 136 K/CMM *LOW* *LOW* (03/26/2012 03:50:00) (03/28/2012 03:50:00) (03/27/2012 05:24:00) MPV [7.4-10.4 fL] 8.1 fL 7.5 fL 7.9 fL (03/28/2012 03:50:00) (03/27/2012 05:24:00) (03/26/2012 03:50:00) Segs [45.0-75.0 %] 75.8 % 92.4 % *HI* *HI* (03/26/2012 03:50:00) (03/25/2012 19:36:00) Lymphocytes [20.0-40.0 %] 11.8 % 4.8 % *LOW* *LOW* (03/26/2012 03:50:00) (03/25/2012 19:36:00) Monocytes [2.0-12.0 %] 12.1 % 2.8 % *HI* (03/25/2012 19:36:00) (03/26/2012 03:50:00) Eosinophils [0.0-4.0 %] 0.0 % 0.0 % (03/26/2012 03:50:00) (03/25/2012 19:36:00) Basophils [0.0-1.0 %] 0.3 % 0.0 % (03/26/2012 03:50:00) (03/25/2012 19:36:00) Segs-Bands # [1.5-8.1 5.6 K/CMM 8.3 K/CMM K/CMM] (03/26/2012 03:50:00) *HI* (03/25/2012 19:36:00) Lymphocytes # [1.0-5.5 0.9 K/CMM 0.4 K/CMM K/CMM] *LOW* *LOW* (03/26/2012 03:50:00) (03/25/2012 19:36:00) Monocytes # [0.0-0.8 0.9 K/CMM 0.2 K/CMM K/CMM] *HI* (03/25/2012 19:36:00) (03/26/2012 03:50:00) Eosinophils # [0.0-0.5 0.0 K/CMM 0.0 K/CMM K/CMM] (03/26/2012 03:50:00) (03/25/2012 19:36:00) Basophils # [0.0-0.2 0.0 K/CMM 0.0 K/CMM K/CMM] (03/26/2012 03:50:00) (03/25/2012 19:36:00) PT [12.0-14.7 seconds] 15.8 seconds 16.1 seconds 16.0 seconds *HI* *HI* *HI* (03/28/2012 03:50:00) (03/27/2012 05:24:00) (03/27/2012 00:13:00) INR [0.85-1.17] 1.26 14 1.29 15 1.28 16 *HI* *HI* *HI* (03/28/2012 03:50:00) (03/27/2012 05:24:00) (03/27/2012 00:13:00) PTT [22.9-35.8 seconds] 30.2 seconds 17 65.5 seconds 18 54.5 seconds 19 (03/28/2012 03:50:00) *HI* *HI* (03/27/2012 05:24:00) (03/27/2012 00:13:00) 14Interpretive Data: RECOMMENDED RANGES FOR PROTIME INR: 2.0-3.0 for most medical and surgical thromboembolic states. 2.5-3.5 for artificial heart valves and recurrent embolism.INR SHOULD BE USED ONLY FOR PATIENTS ON STABLE ANTICOAGULANT THERAPY.15Interpretive Data: RECOMMENDED RANGES FOR PROTIME INR: 2.0-3.0 for most medical and surgical thromboembolic states. 2.5-3.5 for artificial heart valves and recurrent embolism.INR SHOULD BE USED ONLY FOR PATIENTS ON STABLE ANTICOAGULANT THERAPY.16Interpretive Data: RECOMMENDED RANGES FOR PROTIME INR: 2.0-3.0 for most medical and surgical thromboembolic states. 2.5-3.5 for artificial heart valves and recurrent embolism.INR SHOULD BE USED ONLY FOR PATIENTS ON STABLE ANTICOAGULANT THERAPY.17Interpretive Data: Heparin Therapeutic Range: 57 - 92 [id number] Data: Heparin Therapeutic Range: 57 - 92 [id number] Data: Heparin Therapeutic Range: 57 - 92 Seconds
--- OUTSIDE RECORDS SUMMARY | 2019-06-22 13:27 | XMS REPORT | CCD ---
:1940 Author Organization [facility] Outpatient Imaging [facility] Team Providers Name Role Phone Javier uHff III Consulting Provider Allergies, Adverse Reactions, Alerts Substance Reaction Status NKDA Active Problem List Condition Effective Dates Status Chest pain < 03/29/2012 Resolved MRSA1, 2 Active Myocardial infarction Active - [id number] added by Discern Expert.
--- OUTSIDE RECORDS SUMMARY | 2019-06-22 13:28 | XMS REPORT | Summary of Care ---
:1940 Author Name FERNIE CHAMBERLAIN M.D., ARMIN Address [place] [facility] Unavailable , Care Team Providers Name Role Phone FERNIE CHAMBERLAIN M.D., ARMIN Unavailable Unavailable ALEX Kay, SAUMYA Unavailable Unavailable VANIA Kay, SURYA Unavailable Unavailable TAYA, ARMIN Unavailable Unavailable Unavailable Unavailable Unavailable Functional Status Name Dates Details Functional status health issues are not documented Status: Name Dates Details Cognitive status health issues are not documented Status: Problems Name Dates Details History of Follicular cyst of skin and subcutaneous tissue (706.2, L72.9) Status: Resolved Basal cell carcinoma of skin (173.91, C44.91) Status: Active Inflamed epidermoid cyst of skin (706.2, L72.3) Status: Active History of basal cell carcinoma (V10.83, Z85.828) Status: Active Seborrheic keratoses (702.19, L82.1) Status: Active Cutaneous abscess of right axilla (682.3, L02.411) Status: Active 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, 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: Active Lumbar spondylosis (721.3, M47.816) Status: Active Acute lumbar radiculopathy (724.4, M54.16) Status: Active Medications Name Dates Details Simvastatin TABS Refills: 0 Active Warfarin Sodium 2 MG Oral Tablet Refills: 0 Active Plavix 75 MG Oral Tablet Refills: 0 Active Aspirin 81 MG TABS Refills: 0 Active Lisinopril 5 MG Oral Tablet Refills: 0 Active Carvedilol 6.25 MG Oral Tablet Refills: 0 Active Simvastatin 40 MG Oral Tablet Refills: 0 Active LORazepam TABS Refills: 0 Active Entresto 24-26 MG Oral Tablet Refills: 0 Active Pantoprazole Sodium TBEC Refills: 0 Active Furosemide 40 MG/4ML SOLN Refills: 0 Active Cephalexin 500 MG Oral Capsule TAKE 1 CAPSULE 4 times daily for 5 days Quantity: 20 Refills: 0 ALEX KaySAUMYA Start : 05-Apr-2018 Active Amoxicillin 875 MG Oral Tablet TAKE 1 TABLET EVERY 12 HOURS DAILY. Quantity: 14 Refills: 0 VANIA KaySURYA Start : 17-Apr-2018 Active traMADol HCl - 50 MG Oral Tablet TAKE 1 TABLET EVERY 4 TO 6 HOURS NEEDED FOR PAIN. Quantity: 18 Refills: 0 FERNIE CHAMBERLAIN M.D. ARMIN Start : 26-Apr-2019 Active methylPREDNISolone 4 MG Oral Tablet Therapy Pack TAKE DIRECTED Quantity: 1 Refills: 0 FERNIE CHAMBERLAIN M.D. ARMIN Start : 26-Apr-2019 Active 21 Tablet Pack Allergies and Adverse Reactions Name Dates Details No Known Drug Allergies (Allergy) Status: Active Past Medical History Name Dates Details History of Arthritis (V13.4) Status: Resolved History of Atrial fibrillation (427.31, I48.91) Status: Resolved History of Echo R [facility] Pacemaker Lead Status: Resolved History of essential hypertension (V12.59, Z86.79) Status: Resolved History of Follicular cyst of skin and subcutaneous tissue (706.2, L72.9) Status: Resolved History of Other hyperlipidemia (272.4, E78.49) Status: Resolved Personal history of asthma (V12.69, Z87.09) Status: Resolved Procedures Procedure Dates Details CT Spine lumbar wo contrast 10031 Date: 26-Apr-2019 Immunization Name Dates Details Immunizations not documented Social History Name Dates Details - Status: Name Dates Details Former smoker Vital Signs Date Test Result Details No Known Vitals to report Results Date Description Value Details [id number] [U] XRAY SPINE LUMBOSACRAL 2 OR 3 VWS 22446 XR SPINE LUMBOSACRAL 2 OR 3 VWS Images acquired, not reported on this accession number. Plan of Care Name Dates Details Planned Observations Planned Goals not documented Planned Encounters Pain Management Referral Interventions Provided Medication ChangesmethylPREDNISolone 4 MG Oral Tablet Therapy Pack - StarttraMADol HCl - 50 MG Oral Tablet - StartLabs/Procedures/ImagingCT Spine lumbar wo contrast 39946; To Be Done: 26 Apr 2019[U] XRAY SPINE LUMBOSACRAL 2 OR 3 VWS 92160; Done: 26 Apr 2019PlanPatient Education/Instructions: Patient Education Provided Reassurance Patient/Parent to call or return with any abnormal changes Orders: Medications: Medications (prescribed or recommended at this visit): Medication was prescribed or recommended. Dosage, administration, and common potential side effects were reviewed. Please confirm and review medication information and directions with the pharmacist. - Avoid using NSAIDs due to side effects and/or contraindications. - Medrol Dose Pack. Instructions were given to take medrol dose pack (methylprednisolone) only as instructed. Dosage, administration, and common potential side effects were reviewed. Understanding wasverbalized. - Take 500mg - 1000mg of acetaminophen (Tylenol) every 4-6 hours as needed for relief of pain, discomfort, or fever. Do NOT take more than 4000mg in a 24 hour period (can cause liver damage in higherdoses). - Tramadol 50mg. Take 1-2 every 4-6 hours as needed for pain. Tramadol is a narcotic pain medication. Use only as directed. Do NOT drive or operate machinery while using this medication. CT Scan CT: Without Contrast and stat lumbar Follow Up: Return to the clinic after imaging study completed or as needed. Instructions Name Dates Details Instructions not documented Encounters Appointment; SAUMYA JHONSON M.D. On: 05-Apr-2018 13:00 Encounter Diagnosis: Problem not documented Appointment; ORLIN ARANDA M.D. On: 13-Apr-2018 13:00 Encounter Diagnosis: Problem not documented Appointment; ARMIN WATERS M.D. On: 26-Apr-2019 12:30 Encounter Diagnosis: Problem not documented
--- NOTE | 2019-06-22 13:43 | EKG ---
Test Date: 2019-06-22 Test Time: 13:30:21 Delivery Person: ERLINDA MEASUREMENT RESULTS: Intervals: Rate: 142 MD: 362 QRSD: 40 QT: 194 QTc: 298 [place]: P: 97 MD: 362 QRS: 46 T: -8 INTERPRETIVE STATEMENTS: Atrial-Ventricular Dual-Paced rhythm No previous ECG available for comparison Electronically Signed On 06-22-19 13:43:00 CDT by Alex Del Valle
[2019-06-22 14:01] LABS: Absolute Lymphocytes (CBC) 0.9 K/uL (0.7-4.9); Basophils % 0.4 % (0-1.3); Hematocrit 48.2 % (39.6-49.0); Lymphocytes % 22.7 % (15.3-44.8); MPV 8.6 fL (7.6-11.3); RBC Red Blood Cell Count 4.79 M/uL (4.33-5.43)
[2019-06-22 14:08] LABS: Protime INR 1.63
--- NOTE | 2019-06-22 14:30 | RAD REPORT ---
EXAM DESCRIPTION: Juan José Single View06/22/2019 2:21 pm CLINICAL HISTORY: Chest pain COMPARISON: None FINDINGS: The lungs appear clear of acute infiltrate. The heart is mildly enlarged. Pacemaker leads are in place. IMPRESSION: No acute abnormalities displayed
[2019-06-22 14:33] LABS: ALT/SGPT 24 U/L (12-78); AST/SGOT 21 U/L (15-37); Albumin 3.8 g/dL (3.4-5.0); Alkaline Phosphatase 72 U/L (45-117); BUN Blood Urea Nitrogen 23 mg/dL (7-18); Bicarbonate 28 mmol/L (21-32); Bilirubin Direct 0.2 mg/dL (0-0.2); Bilirubin Total 0.7 mg/dL (0.2-1.0); Glucose Level 123 mg/dL (74-106); Magnesium 2.4 mg/dL (1.8-2.4); NT PRO-BNP 1259 pg/mL (<450); Protein, Total 7.1 g/dL (6.4-8.2); Sodium Level 142 mmol/L (136-145); Troponin (Emerg Dept Use Only) < 0.02 ng/mL (0.0-0.045)
[2019-06-22] MEDS ORDERED: ONDANSETRON 4 MG/2 ML VIAL ONE (14:50)
[2019-06-22] MEDS ORDERED: MORPHINE 2 MG/ML SYR ONE (14:50)
[2019-06-22] MEDS ORDERED: FAMOTIDINE 20 MG/2 ML VIAL IV ONE (14:51)
[2019-06-22] MEDS ORDERED: ASPIRIN 81 MG CHEWABLE TABLET ONE (15:41)
--- NOTE | 2019-06-22 15:41 | ER ---
Nurse's Notes [facility] [place] [place] Name: Mango Arriaza Age: 78 yrs Sex: Male : 1940 Arrival Date: 06/22/2019 Time: 13:23 Bed 5 Private MD: Diagnosis: Chest pain, unspecified;Essential (primary) hypertension;Unspecified combined systolic (congestive) and diastolic (congestive) heart failure Presentation: 06/22 13:25 Presenting complaint: Patient states: I was driving home from Dr. Del Valle office today la1 and started to get chest pain. I was told I needed two stents but I have to have some other tests today. Transition of care: patient was not received from another setting of care. Onset of symptoms was June 22, 2019. Risk Assessment: Do you want to hurt yourself or someone else? Patient reports no desire to harm self or others. Initial Sepsis Screen: Does the patient meet any 2 criteria? No. Patient's initial sepsis screen is negative. Does the patient have a suspected source of infection? No. Patient's initial sepsis screen is negative. Care prior to arrival: None. 13:25 Method Of Arrival: Wheelchair la1 13:25 Acuity: EFREN 2 la1 Historical: - Allergies: 13:28 No Known Allergies; la1 - Home Meds: 13:31 warfarin 6 mg Oral tab 1 tab once daily [Active]; Entresto 24-26 mg oral tab [Active]; la1 pantoprazole 40 mg oral TbEC 1 tab once daily [Active]; furosemide 40 mg Oral tab 1 tab once daily [Active]; atorvastatin 40 mg oral tab 1 tab once daily [Active]; - PMHx: 13:28 CHF; Hypertension; High Cholesterol; Atrial Fib; Myocardial infarction; TIA; la1 - PSHx: 13:31 pacemaker/defib; TURP; la1 - Immunization history:: Adult Immunizations up to date. - Social history:: Smoking status: Patient/guardian denies using tobacco. - Ebola Screening: : No symptoms or risks identified at this time. - Family history:: not pertinent. Screenin:40 Abuse screen: Denies threats or abuse. Denies injuries from another. Nutritional sg screening: No deficits noted. Tuberculosis screening: No symptoms or risk factors identified. Never had TB. Fall Risk None identified. Assessment: 13:40 General: Appears in no apparent distress. well groomed, well developed, well nourished, sg Behavior is calm, cooperative, appropriate for age. Pain: Complains of pain in mid-sternal area Quality of pain is described as aching, dull. Neuro: Level of Consciousness is awake, alert, obeys commands, Oriented to person, place, time, Moves all extremities. Gait is steady, Speech is normal, Facial symmetry appears normal. Cardiovascular: Capillary refill is brisk in bilateral fingers Patient's skin is warm and dry. Chest pain is described as mild, is located in anterior chest wall radiates to right anterior chest wall. Respiratory: Airway is patent Respiratory effort is even, unlabored, Respiratory pattern is regular, symmetrical, Breath sounds are clear bilaterally. GI: Abdomen is round non-distended, Reports normal bowel habits, tolerance of fluids, tolerance of food. : No signs and/or symptoms were reported regarding the genitourinary system. EENT: No signs and/or symptoms were reported regarding the EENT system. Derm: Skin is pink, warm \T\ dry. Musculoskeletal: Circulation, motion, and sensation intact. Range of motion: intact in all extremities. 14:42 Reassessment: Patient appears in no apparent distress at this time. Patient and/or sg family updated on plan of care and expected duration. Pain level reassessed. Patient is alert, oriented x 3, equal unlabored respirations, skin warm/dry/pink. 16:00 Reassessment: Patient appears in no apparent distress at this time. No changes from sv previously documented assessment. Patient and/or family updated on plan of care and expected duration. Pain level reassessed. Patient is alert, oriented x 3, equal unlabored respirations, skin warm/dry/pink. 17:15 Reassessment: Patient appears in no apparent distress at this time. No changes from sv previously documented assessment. Patient and/or family updated on plan of care and expected duration. Pain level reassessed. Patient is alert, oriented x 3, equal unlabored respirations, skin warm/dry/pink. 18:05 Reassessment: Patient appears in no apparent distress at this time. No changes from sv previously documented assessment. Patient and/or family updated on plan of care and expected duration. Pain level reassessed. Patient is alert, oriented x 3, equal unlabored respirations, skin warm/dry/pink. Vital Signs: 13:28 BP 114 / 65; Pulse 76; Resp 16; Temp 97.8; Pulse Ox 98% on R/A; Weight 68.04 kg; Height la1 5 ft. 9 in. (175.26 cm); 15:15 BP 106 / 72; Pulse 70; Resp 16; Pulse Ox 95% ; sv 16:00 BP 116 / 81; Pulse 78; Resp 16; Pulse Ox 97% ; sv 17:00 BP 114 / 63; Pulse 77; Resp 19; Pulse Ox 99% ; sv 18:00 BP 96 / 83; Pulse 73; Resp 16; Pulse Ox 98% ; sv 13:28 Body Mass Index 22.15 (68.04 kg, 175.26 cm) la1 ED Course: 13:23 Patient arrived in ED. mr 13:26 Triage completed. la1 13:28 Arm band placed on right wrist. EKG completed in triage. Results shown to MD. la1 13:34 Shlomo Dunn MD is Attending Physician. paul 13:40 Patient has correct armband on for positive identification. Bed in low position. Call sv light in reach. quality assurance monitor chassis on. Pulse ox on. NIBP on. 13:40 Initial lab(s) drawn, by me, sent to lab. Inserted saline lock: 20 gauge in right sg antecubital area, using aseptic technique. Blood collected. 14:31 XRAY Chest (1 view) In Process Unspecified. EDMS 14:41 Devin Shaffer, SAPNA is Primary Nurse. sg 15:37 Deborah Ryder MD is Hospitalizing Provider. paul 18:21 No provider procedures requiring assistance completed. Patient admitted, IV remains in sv place. intact. Administered Medications: 14:40 Drug: morphine 2 mg Route: IVP; Site: right antecubital; sg 15:00 Follow up: Response: No adverse reaction; Marked relief of symptoms; Pain is decreased; sv RASS: Alert and Calm (0) 14:40 Drug: Zofran 4 mg Route: IVP; Site: right antecubital; sg 15:00 Follow up: Response: No adverse reaction sv 14:40 Drug: Pepcid 20 mg Route: IVP; Site: right antecubital; sg 15:00 Follow up: Response: No adverse reaction sv 16:00 Drug: Coumadin 5 mg Route: PO; sg 16:30 Follow up: Response: No adverse reaction sv 16:00 Drug: Coumadin 1 mg Route: PO; sg 16:30 Follow up: Response: No adverse reaction sv 16:00 Drug: Aspirin 81 mg Route: PO; sg 16:30 Follow up: Response: No adverse reaction sv 17:15 Drug: Lovenox 1 mg/kg Route: Sub-Q; Site: right lower abdomen; sg 18:00 Follow up: Response: No adverse reaction sv 19:31 Not Given (Patient Refused): morphine 2 mg IVP once; RASS on ADMIN: Combtv4, Very sv Agttd3, Agttd2, Rstlss1, AlertClm0, Drwsy-1, Lt Sdtn-2, Mod Sdtn-3, Dp Sdtn-4, UnArsble-5 Outcome: 15:40 Decision to Hospitalize by Provider. paul 18:05 Admitted to Tele accompanied by tech, via wheelchair, with chart, Report called to jose Giraldo RN, given by Devin ALEJO 18:05 Condition: stable 18:05 Instructed on the need for admit. 18:18 Patient left the ED. sg Signatures: Dispatcher [employer] Laila Bolton RN RN sv Gay, Steven, RN RN sg Anderson, Corey, MD MD cha Rivera, [facility] Derek Murphy, RN RN la1
--- NOTE | 2019-06-22 15:42 | EDPHYS ---
Physician Documentation [facility] Name: Mango Arriaza Age: 78 yrs Sex: Male : 1940 Arrival Date: 06/22/2019 Time: 13:23 Bed 5 Private MD: ED Physician Shlomo Dunn HPI: 06/22 13:43 This 78 yrs old Male presents to ER via Wheelchair with complaints of Chest paul Pain. 13:43 The patient or guardian reports chest pain that is located primarily in the substernal paul area. Onset: just prior to arrival. The pain does not radiate. Associated signs and symptoms: The patient has no apparent associated signs or symptoms. The chest pain is described as a heaviness, sharp. Modifying factors: The symptoms are alleviated by nothing. the symptoms are aggravated by nothing. Severity of pain: At its worst the pain was mild in the emergency department the pain is unchanged. The patient has experienced similar episodes in the past, multiple times. Historical: - Allergies: 13:28 No Known Allergies; la1 - Home Meds: 13:31 warfarin 6 mg Oral tab 1 tab once daily [Active]; Entresto 24-26 mg oral tab [Active]; la1 pantoprazole 40 mg oral TbEC 1 tab once daily [Active]; furosemide 40 mg Oral tab 1 tab once daily [Active]; atorvastatin 40 mg oral tab 1 tab once daily [Active]; - PMHx: 13:28 CHF; Hypertension; High Cholesterol; Atrial Fib; Myocardial infarction; TIA; la1 - PSHx: 13:31 pacemaker/defib; TURP; la1 - Immunization history:: Adult Immunizations up to date. - Social history:: Smoking status: Patient/guardian denies using tobacco. - Ebola Screening: : No symptoms or risks identified at this time. - Family history:: not pertinent. ROS: 13:43 Constitutional: Negative for fever, chills, and weight loss, Eyes: Negative for injury, paul pain, redness, and discharge, ENT: Negative for injury, pain, and discharge, Neck: Negative for injury, pain, and swelling, Respiratory: Negative for shortness of breath, cough, wheezing, and pleuritic chest pain, Abdomen/GI: Negative for abdominal pain, nausea, vomiting, diarrhea, and constipation, Back: Negative for injury and pain, : Negative for injury, bleeding, discharge, and swelling, MS/Extremity: Negative for injury and deformity, Skin: Negative for injury, rash, and discoloration, Neuro: Negative for headache, weakness, numbness, tingling, and seizure, Psych: Negative for depression, anxiety, suicide ideation, homicidal ideation, and hallucinations, Allergy/Immunology: Negative for hives, rash, and allergies, Endocrine: Negative for neck swelling, polydipsia, polyuria, polyphagia, and marked weight changes, Hematologic/Lymphatic: Negative for swollen nodes, abnormal bleeding, and unusual bruising. 13:43 Cardiovascular: Positive for chest pain. Exam: 13:43 Constitutional: This is a well developed, well nourished patient who is awake, alert, paul and in no acute distress. Head/Face: Normocephalic, atraumatic. Eyes: Pupils equal round and reactive to light, extra-ocular motions intact. Lids and lashes normal. Conjunctiva and sclera are non-icteric and not injected. Cornea within normal limits. Periorbital areas with no swelling, redness, or edema. ENT: Nares patent. No nasal discharge, no septal abnormalities noted. Tympanic membranes are normal and external auditory canals are clear. Oropharynx with no redness, swelling, or masses, exudates, or evidence of obstruction, uvula midline. Mucous membranes moist. Neck: Trachea midline, no thyromegaly or masses palpated, and no cervical lymphadenopathy. Supple, full range of motion without nuchal rigidity, or vertebral point tenderness. No Meningismus. Chest/axilla: Normal chest wall appearance and motion. Nontender with no deformity. No lesions are appreciated. Cardiovascular: Regular rate and rhythm with a normal S1 and S2. No gallops, murmurs, or rubs. Normal PMI, no JVD. No pulse deficits. Respiratory: Lungs have equal breath sounds bilaterally, clear to auscultation and percussion. No rales, rhonchi or wheezes noted. No increased work of breathing, no retractions or nasal flaring. Abdomen/GI: Soft, non-tender, with normal bowel sounds. No distension or tympany. No guarding or rebound. No evidence of tenderness throughout. Back: No spinal tenderness. No costovertebral tenderness. Full range of motion. Male : Normal genitalia with no discharge or lesions. Skin: Warm, dry with normal turgor. Normal color with no rashes, no lesions, and no evidence of cellulitis. MS/ Extremity: Pulses equal, no cyanosis. Neurovascular intact. Full, normal range of motion. Neuro: Awake and alert, GCS 15, oriented to person, place, time, and situation. Cranial nerves II-XII grossly intact. Motor strength 5/5 in all extremities. Sensory grossly intact. Cerebellar exam normal. Normal gait. Psych: Awake, alert, with orientation to person, place and time. Behavior, mood, and affect are within normal limits. 13:43 Musculoskeletal/extremity: DVT Exam: No signs of deep vein thrombosis. no pain, no swelling, no tenderness, negative Homans' sign noted on exam, no appreciated bluish discoloration, no erythema, no increased warmth. Vital Signs: 13:28 BP 114 / 65; Pulse 76; Resp 16; Temp 97.8; Pulse Ox 98% on R/A; Weight 68.04 kg; Height la1 5 ft. 9 in. (175.26 cm); 15:15 BP 106 / 72; Pulse 70; Resp 16; Pulse Ox 95% ; sv 16:00 BP 116 / 81; Pulse 78; Resp 16; Pulse Ox 97% ; sv 17:00 BP 114 / 63; Pulse 77; Resp 19; Pulse Ox 99% ; sv 18:00 BP 96 / 83; Pulse 73; Resp 16; Pulse Ox 98% ; sv 13:28 Body Mass Index 22.15 (68.04 kg, 175.26 cm) la1 MDM: 13:34 Patient medically screened. [facility] 13:45 Data reviewed: vital signs, nurses notes, lab test result(s), EKG, radiologic studies, paul plain films. 06/22 13:33 Order name: Basic Metabolic Panel; Complete Time: 15:36 nd06/22 13:33 Order name: CBC with Diff 06/22 13:33 Order name: LFT's; Complete Time: 15:36 nd06/22 13:33 Order name: Magnesium; Complete Time: 15:36 06/22 13:33 Order name: NT PRO-BNP; Complete Time: 15:36 nd06/22 13:33 Order name: PT-INR; Complete Time: 15:36 nd06/22 13:33 Order name: Troponin (emerg Dept Use Only); Complete Time: 15:36 06/22 13:33 Order name: XRAY Chest (1 view); Complete Time: 15:36 06/22 13:43 Order name: Lipase; Complete Time: 15:36 [facility] 06/22 13:33 Order name: EKG; Complete Time: 13:35 06/22 13:33 Order name: Cardiac monitoring; Complete Time: 17:43 nd06/22 13:33 Order name: EKG - Nurse/Tech; Complete Time: 13:34 06/22 13:33 Order name: IV Saline Lock; Complete Time: 17:43 06/22 13:33 Order name: Labs collected and sent; Complete Time: 17:43 06/22 13:33 Order name: O2 Per Protocol; Complete Time: 17:43 06/22 13:33 Order name: O2 Sat Monitoring; Complete Time: 17:43 06/22 16:31 Order name: Diet Heart Healthy; Complete Time: 16:34 ss Administered Medications: 14:40 Drug: morphine 2 mg Route: IVP; Site: right antecubital; sg 15:00 Follow up: Response: No adverse reaction; Marked relief of symptoms; Pain is decreased; sv RASS: Alert and Calm (0) 14:40 Drug: Zofran 4 mg Route: IVP; Site: right antecubital; sg 15:00 Follow up: Response: No adverse reaction sv 14:40 Drug: Pepcid 20 mg Route: IVP; Site: right antecubital; sg 15:00 Follow up: Response: No adverse reaction sv 16:00 Drug: Coumadin 5 mg Route: PO; sg 16:30 Follow up: Response: No adverse reaction sv 16:00 Drug: Coumadin 1 mg Route: PO; sg 16:30 Follow up: Response: No adverse reaction sv 16:00 Drug: Aspirin 81 mg Route: PO; sg 16:30 Follow up: Response: No adverse reaction sv 17:15 Drug: Lovenox 1 mg/kg Route: Sub-Q; Site: right lower abdomen; sg 18:00 Follow up: Response: No adverse reaction sv 19:31 Not Given (Patient Refused): morphine 2 mg IVP once; RASS on ADMIN: Combtv4, Very sv Agttd3, Agttd2, Rstlss1, AlertClm0, Drwsy-1, Lt Sdtn-2, Mod Sdtn-3, Dp Sdtn-4, UnArsble-5 Disposition: 06/22/19 15:40 Hospitalization ordered by Deborah Ryder for Inpatient Admission. Preliminary diagnosis are Chest pain, unspecified, Essential (primary) hypertension, Unspecified combined systolic (congestive) and diastolic (congestive) heart failure. - Bed requested for Telemetry/MedSurg (Inpatient). - Status is Inpatient Admission. sg - Condition is Fair. - Problem is new. - Symptoms have improved. UTI on Admission? No Signatures: Dispatcher [employer] EDMS Devin Shaffer RN RN Shlomo Khan MD MD cha Attema, Lee RN RN nd1 Gume, Beatrice 3 Laila Abbasi RN Corrections: (The following items were deleted from the chart) 16:56 15:40 Hospitalization Ordered by Deborah Ryder MD for Inpatient Admission. Preliminary [facility] diagnosis is Chest pain, unspecified; Essential (primary) hypertension; Unspecified combined systolic (congestive) and diastolic (congestive) heart failure. Bed requested for Telemetry/MedSurg (Inpatient). Status is Inpatient Admission. Condition is Fair. Problem is new. Symptoms have improved. UTI on Admission? No. paul 18:18 16:56 06/22/2019 15:40 Hospitalization Ordered by Deborah Ryder MD for Inpatient sg Admission. Preliminary diagnosis is Chest pain, unspecified; Essential (primary) hypertension; Unspecified combined systolic (congestive) and diastolic (congestive) heart failure. Bed requested for Telemetry/MedSurg (Inpatient). Status is Inpatient Admission. Condition is Fair. Problem is new. Symptoms have improved. UTI on Admission? No. dh3
[2019-06-22] MEDS ORDERED: WARFARIN SODIUM 5 MG TAB ONE (15:43)
[2019-06-22] MEDS ORDERED: ENOXAPARIN 60 MG/0.6 ML SQ ONE (15:44)
[2019-06-22] MEDS ORDERED: WARFARIN SODIUM 6 MG TAB PO ONE (16:00)
[2019-06-22] MEDS ORDERED: ACETAMINOPHEN 500 MG TAB PO PRN (18:27)
[2019-06-22] MEDS ORDERED: NITROGLYCERIN 0.4 MG/TAB SL PRN (18:27)
[2019-06-22] MEDS ORDERED: MORPHINE 2 MG/ML SYR IV PRN (18:27)
[2019-06-22] MEDS: SACUBITRIL/VALSARTAN 24/26 MG TAB PO SCH (20:44)
[2019-06-22] MEDS: METOPROLOL TAR 25 MG TAB PO SCH (20:45)
[2019-06-22] MEDS ORDERED: METOPROLOL TAR 25 MG TAB PO SCH (21:00)
[2019-06-22] MEDS ORDERED: ATORVASTATIN 40 MG TAB PO SCH (21:00)
[2019-06-22] MEDS ORDERED: LORAZEPAM 1 MG TABLET PO ONE (21:24)
[2019-06-23] MEDS ORDERED: TRAZODONE 50 MG TABLET PO ONE (00:15)
--- NOTE | 2019-06-23 02:21 | HP ---
Date of Admission: 06/22/2019 Chief Complaint: Chest pain. Code Status: Full. 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 Primary Care Physician: None. Consultants: Dr. Del Valle with Cardiology. History Of Present Illness: Patient is a 78-year-old male with past medical history of essential hyp ertension; heart failure; hyperlipidemia; atrial fibrillation, on Coumadin; peripheral arterial disea se; coronary artery disease, status post stents; history of TIA; and prostate cancer, who was in his usual state of health until day of admission when the patient came into Dr. Del Valle's office for [facility] pacemaker defibrillator check. Patient's device was checked by [facility] speech therapist technician. Everything was normal and he left to go back home and he had sudden onset of substernal chest pain, which was n onradiating, associated with some shortness of breath. No nausea, vomiting, diaphoresis, or palpitat ions. Patient also reported feeling somewhat generalized malaise, stating he was woozy. Therefore, patient came into the ER for further evaluation. Symptoms are constant, moderate, progressively wors ening. In the ER, his vital signs were stable. His workup revealed a creatinine of 1.48, unknown ba seline. Initial cardiac workup including cardiac enzymes and EKG did not show any acute changes. Nomi patton was given aspirin, Lovenox, and morphine and was referred for admission. When seen in the ER, he was awake, alert, and oriented x3, in some mild distress. Past Medical History: Hypertension; congestive heart failure; hyperlipidemia; insomnia; atrial fibri llation; TIA; coronary artery disease, status post stent; peripheral arterial disease, status post st ent; prostate cancer, status post radiation. Past Surgical History: Cardiac stents, peripheral arterial stents, pacemaker defibrillator placement . Allergies: NO KNOWN DRUG ALLERGIES. Medications: List reviewed. Social History: Patient denies any tobacco use, alcohol use, or illicit drug use. Patient is marrie d and lives with his independent in his activities of daily living. Family History: Colon cancer in the brother who . Review of Systems: Ten-point system reviewed, negative except as per HPI. Physical Examination: Vital Signs: Blood pressure 114/65, pulse 76, respirations 16, temperature 97.8, O2 of 98% on room a ir. BMI is 22. General: Awake, alert, oriented x3, in some mild distress, elderly male. HEENT: Normocephalic, atraumatic. PERRLA. EOMI. Dry mucous membranes. Oropharynx is clear. Norm al dentition. Conjunctivae are anicteric. Neck: Supple. No JVD. Trachea midline. CV: S1, S2. Irregularly irregular rhythm. Peripheral pulses weak bilaterally. Respiratory: Moving air well bilaterally. No wheezing or stridor. No use of accessory muscles. Gastrointestinal: Abdomen is soft, nontender, nondistended. Positive bowel sounds. No guarding or rigidity. Extremities: No clubbing, cyanosis, or edema. No calf tenderness. Neuro: Cranial nerves 2 through 12 intact grossly. No focal neurological deficit. Speech is normal . Strength is 5/5 bilateral upper and lower extremities. Sensation intact to light touch. Skin: No rashes. Normal skin turgor. Psych: Mood is okay. Affect is full. Insight and judgment are good. Laboratory Data: INR 1.63. WBC 4, H and H 16 and 48.2, platelets 152. Sodium 142, potassium 4, chl oride 108, CO2 of 28. BUN 23, creatinine 1.48, glucose 123, calcium 8.7. Magnesium 2.4. BNP 1259. Troponin less than 0.02. EKG shows AV dual paced rhythm, rate of 142. No previous EKG available fo r comparison. Chest x-ray, personally reviewed, shows no acute abnormalities displayed. Assessment: 78-year-old male with: 1.Unstable angina. We will start on chest pain guidelines and consult Cardiology. We will obtain e chocardiogram. Patient was recently evaluated by Cardiology at outside facility and was told he will need cardiac stent placement and decided to get it done by his primary core checker in [place]. Case was discussed with Dr. Del Valle. We will obtain serial enzymes, cardiac enzymes, and EKG to rul e out acute coronary syndrome. Nitroglycerin and morphine p.r.n. 2.Acute on chronic kidney injury, unknown baseline. Creatinine from 2014 is normal. We will avoid IV fluids due to history of congestive heart failure. We will monitor creatinine and avoid NSAIDs. 3.Chronic congestive heart failure, unknown ejection fraction, likely systolic dysfunction. We will continue congestive heart failure guidelines. Patient is on Entresto. We will continue to monitor daily weights and strict I's and O's, fluid restriction. 4.Essential hypertension. We will resume home medications as appropriate. 5.Mixed hyperlipidemia, continue statin. 6.Atrial fibrillation, chronic, status post pacemaker defibrillator. Patient is anticoagulated with Coumadin. Currently, INR is subtherapeutic. Patient received a dose of Lovenox. We will resume Co umadin and monitor INR. 7.History of transient ischemic attack. 8.Coronary artery disease, [place] artery, [place] heart, status post stents with unstable angina. 9.Peripheral arterial disease, status post stent. 10.History of prostate cancer, status post radiation. Plan: Admit patient to med-surg, [facility] as observation. MISHA Voice ID: [id number]
[2019-06-23] MEDS ORDERED: METOPROLOL TAR 25 MG TAB PO SCH (06:00)
[2019-06-23 06:17] LABS: Protime INR 1.86
[2019-06-23 06:24] LABS: Basophils % 0.6 % (0-1.3); Hematocrit 44.8 % (39.6-49.0); Lymphocytes % 22.6 % (15.3-44.8); MPV 8.7 fL (7.6-11.3); RBC Red Blood Cell Count 4.49 M/uL (4.33-5.43)
[2019-06-23 06:25] LABS: Potassium 3.9 mmol/L (3.5-5.1)
[2019-06-23] MEDS ORDERED: ASPIRIN EC 81 MG TAB PO SCH (09:00)
[2019-06-23] MEDS: SACUBITRIL/VALSARTAN 24/26 MG TAB PO SCH (09:16)
[2019-06-23] MEDS: METOPROLOL TAR 25 MG TAB PO SCH (09:20)
--- NOTE | 2019-06-23 13:35 | CON ---
Mr. Arriaza is a gentleman, who has near end-stage heart disease, who came to the hospital with ches t pains. Since he has been here, OR was ruled out. His chest pain was atypical. Mr. Arriaza has a history of bypass surgery, defibrillator, depressed ejection fraction. About 3 weeks ago, he was at [facility]. Cardiac cath was done and the physician that did it, recommended that he had so me stents, but first that he undergo colonoscopy. At this point, the colonoscopy has not yet been do ne. The patient had GI bleeding and in order for him to have a stent we would have to have him stop warfarin and be on aspirin and Plavix. Before that is done, a colonoscopy was recommended. The patie nt had point tenderness. His EKG does not help us, all it all, it just shows atrial ventricular paci ng. It does not show atrial fib at this time. Laboratory Data: Reveals normal troponins. His INR was subtherapeutic at 1.86. His creatinine is 1 .48. N-terminal proBNP is 1259. His hemoglobin is 16.0. His mean poor corpuscular volume is 100.7. Impression: The patient probably needs to increase his medical therapy. We will add nitroglycerin f or him to take as needed. He only needs to come to the hospital if his chest pain does not go away w ith nitroglycerin. I will add Ranexa 500 b.i.d. to the regimen. We will try to get a colonoscopy do ne as soon as the patient calls my office on Tuesday. We will see if Dr. Tom could do it sometime next week, then we could not decide what we want to do with his coronary arteries. At this point, I think he could be discharged. EASTON/NAVEED Voice ID: [id number] Report ID: [id number]
--- NOTE | 2019-06-23 13:41 | DS ---
Date of Discharge: 06/23/2019 Consultants: Dr. Del Valle with Cardiology. Procedures: None. Discharge Diagnoses: 1. Unstable angina, acute coronary syndrome ruled out. 2. Coronary artery disease, [place] artery and [place] heart, status post stents with angina. 3. Acute on chronic kidney injury. Creatinine improving. 4. Chronic congestive heart failure, unknown ejection fraction, likely systolic dysfunction, stable. 5. Essential hypertension, stable. 6. Hyperlipidemia, on statin. 7. Atrial fibrillation, chronic, status post pacemaker defibrillator. 8. History of TIA. 9. Peripheral arterial disease, status post stent. 10. History of prostate cancer, status post radiation. Hospital Course: The patient is a 78-year-old male with complicated past medical history including hypertension; congestive heart failure; hyperlipidemia ; atrial fibrillation, on anticoagulation; peripheral arterial disease; coronary artery disease, status post stents; history of TIA and prostate cancer ; comes in with chest pain. The patient was admitted to the hospital to rule out ACS. Troponins were negative. His pain resolved. The patient was seen by Cardiology, Dr. Del Valle. His lipid panel was within normal limits. Dr. Del Valle recommended outpatient followup and catheterization. The patient was stable, was cleared for discharge. He was sent home in a stable condition. Activity: As tolerated. Medications: As per medication reconciliation list. Followup: Follow up with primary care physician in 2 to 3 days. Follow up with teletype operator, Dr. Del Valle, in 2 weeks. Return to ER for worsening condition. Diet: Heart healthy. Activity: As tolerated. Physical Examination: General: Awake, alert, oriented x3, elderly male. CV: S1, S2. Respiratory: Moving air well bilaterally. Abdomen: Soft, nontender, nondistended. Positive bowel sounds. Extremities: No clubbing, cyanosis, or edema. Neurologic: Nonfocal. SA/MODL Voice ID: [id number] Report ID: [id number] [facility]
== END 2019-06-23 12:42 | disposition home or self-care (01) ==
LOC: ER 13:22 → ERHOLD 16:21 → 2ND 18:10
PROVIDERS: ADMIT Family Medicine; ATTEND Family Medicine
DX: I25.110 Atherosclerotic heart disease of native coronary artery with unstable angina pectoris (principal); I50.9 Heart failure, unspecified; I73.9 Peripheral vascular disease, unspecified; I13.0 Hypertensive heart and chronic kidney disease with heart failure and stage 1 through stage 4 chronic kidney disease, or unspecified chronic kidney disease; N18.9 Chronic kidney disease, unspecified; N17.9 Acute kidney failure, unspecified; I48.2 Chronic atrial fibrillation; E78.2 Mixed hyperlipidemia; Z79.01 Long term (current) use of anticoagulants; Z86.73 Personal history of transient ischemic attack (TIA), and cerebral infarction without residual deficits; Z85.46 Personal history of malignant neoplasm of prostate; Z98.61 Coronary angioplasty status
CPT/HCPCS: 93005; 85025 ×2; 80048 ×2; 36415; 83735; 85610 ×2; 80061; 80076; 84484 ×3; 83690; 83880; 71045; 94760 ×2; 96375; 96372; 96374; 99285; J1650; J2270; J2405; G0378 ×2

== ENCOUNTER → 2019-06-28 | Day surgery (SDC) | payer OTHER ==
[~2019-06-28] MED LIST: LIDOCAINE 1% MPF 30 ML VIAL ONE; PROPOFOL 200 MG/20 ML VIAL IV ONE; Ringers Lactate 1,000 ML IV ONE
--- OUTSIDE RECORDS SUMMARY | 2019-06-28 10:45 | XMS REPORT | Clinical Summary ---
:1940 Author Organization [facility] Address [address] [place] [address] Care Team Providers Name Role Phone José [...] Care Coordination Note 1. Ischemic Cardiomyopathy- s/p MA in 03/25/2012. Presented to [facility] with subtotal LAD lesion- LAD stented and IABP was implanted Most recent angiogram in 06/06/13 reveals that he has patent stent in the LAD mid , 30% circumflex, Followed by a patent stent, subtotally occluded RCA with collaterals from the Left side LVEDP 21 Most recent echo 08/2012 in [place] EF 35-45% impaired relaxation apical and anterior [...] INFLUENZA VACCINE 07/31/2018 Implants Implanted Type Area Sales Representative Printing Device Shelf Model / Identifier Expiration Serial / Date Lot Mesh,Surgipro 3x5" Mmimp - Sn/A Mesh Left: US SURGICAL GUILLAUME 01/28/2019 SPM-35 / Implanted: Qty: 1 on 07/12/2014 by Latoya Abraham MD [facility] N/A / [id number] Results Not on fileafter 06/27/2018 Insurance Payer Benefit Plan / Subscriber ID Type Phone Address Group [employer] - MEDICARE A[employer] MEDICARE HMO xxxxxxxx [phone] [address] [place] [address] Advance Directives For more information, please contact:[address] [place], [place] [phone] Code Status Date Activated Date Inactivated Comments [...]
--- OUTSIDE RECORDS SUMMARY | 2019-06-28 10:45 | XMS REPORT | Clinical Summary ---
:1940 Author Organization [facility] Address [address] [place] [address] Care Team Providers Name Role Phone Provider, Unknown Primary Care Provider Unavailable Allergies Active Allergy Reactions Severity Noted Date Comments No Known Drug Allergies 09/14/2016 Medications Medication Sig Dispensed Refills Start Date End Date Status LORAZepam Take 3 mg by 0 Active (ATIVAN) 2 MG mouth nightly. tablet Sometimes takes 4 mg warfarin Take 6 mg by 0 Active (COUMADIN) 6 MG mouth daily. tablet pantoprazole Take 40 mg by 0 Active (PROTONIX) 40 MG mouth daily. EC tablet furosemide Take 40 mg by 0 Active (LASIX) 40 mg mouth daily. tablet aspirin 81 mg Chew 1 tablet 30 tablet 0 06/15/2019 Active chewable tablet (81 mg total) 9 daily for 30 days. atorvastatin Take 1 tablet 30 tablet 0 06/14/2019 Active (LIPITOR) 40 MG (40 mg total) 9 tablet by mouth nightly for 30 days. Default OP ins metoprolol Take 0.5 30 tablet 0 06/14/2019 Active tartrate tablets (12.5 9 (LOPRESSOR) 25 mg mg total) by tablet mouth 2 (two) times a day for 30 days. sacubitril-valsar Take 1 tablet 60 tablet 0 06/14/2019 Active marie (ENTRESTO) by mouth 2 9 24-26 mg tablet (two) times a per tablet day for 30 days. thiamine Take 1 tablet 30 tablet 0 06/15/2019 Active mononitrate, vit (100 mg total) 9 B1, (B-1) 100 mg by mouth daily tablet for 30 days. clopidogrel Take 1 tablet 90 tablet 3 11/26/2016 Discontinued (PLAVIX) 75 mg (75 mg total) 9 (Patient tablet by mouth Reported) daily. lisinopril Take 1 tablet 180 tablet 3 11/26/2016 Discontinued (PRINIVIL,ZESTRIL (5 mg total) 9 ) 5 mg tablet by mouth 2 (two) times a day. simvastatin Take 1 tablet 90 tablet 3 11/26/2016 Discontinued (ZOCOR) 40 MG (40 mg total) 9 (Stop Taking at tablet by mouth Discharge) nightly. furosemide Take 4 tablets 360 tablet 0 11/08/2017 (LASIX) 20 mg (80 mg total) 9 tablet by mouth daily. carvedilol TAKE 1/2 30 tablet 0 12/16/2017 Discontinued (COREG) 12.5 MG TABLET BY 9 (Patient tablet MOUTH TWICE A Reported) DAY WITH MEALS Active Problems Problem Noted Date CAD (coronary artery disease) 06/12/2019 Acute systolic congestive heart failure 06/10/2019 Acute chest pain 06/10/2019 Atrial flutter 09/14/2016 Congestive heart failure 09/14/2016 Chronic coronary artery disease 09/14/2016 Fatigue 09/14/2016 Atrial fibrillation 05/11/2016 Encounters Date Type Specialty Care Team Description 06/13/2019 Surgery Procedural Jorge Livingston coronary Cardiology MD Latoya angiography [11938 (CPT)] 06/10/2019 - Hospital Encounter Cardiology Sd Worrell Acute chest pain ( Primary Dx); 06/14/2019 MD Derek Acute systolic congestive heart failure (HCC); Lalito Johnson Facial paresthesia MD Tab 06/10/2019 Intake Access N/A 05/07/2019 Orders Only Cardiology Blue Boyle MD PhD 03/16/2019 Orders Only Cardiology Josefa Marsh NP after 06/27/2018 Immunizations Name Administration Dates Next Due Influenza Trivalent 08/02/2013 Pneumococcal Conjugate 08/09/2010 Social History Tobacco Use Types Packs/Day Years Used Date Former Smoker Smokeless Tobacco: Never Used Comments: pankaj 1977 Alcohol Use Drinks/Week oz/Week Comments No Sex Assigned at Date Recorded Not on file Job Start Date Occupation Industry Not on file Not on file Not on file Travel History Travel Start Travel End No recent travel history available. Last Filed Vital Signs Vital Sign Reading Time Taken Comments Blood Pressure 121/66 06/14/2019 11:12 AM CDT Pulse 74 06/14/2019 11:12 AM CDT Temperature 35.8 C (96.5 F) 06/14/2019 11:12 AM CDT Respiratory Rate 18 06/14/2019 11:12 AM CDT Oxygen Saturation 97% 06/14/2019 11:12 AM CDT Inhaled Oxygen Concentration - - Weight 68.1 kg (150 lb 3.2 oz) 06/14/2019 5:28 AM CDT Height 175.3 cm (5' 9") 06/11/2019 7:31 AM CDT Body Mass Index 22.18 06/11/2019 7:31 AM CDT Plan of Treatment Health Maintenance Due Date Last Done Comments SHINGLES VACCINES (#1) 1990 65+ PNEUMOCOCCAL VACCINE (2 of 2 - PPSV23) 08/09/2011 08/09/2010 INFLUENZA VACCINE 05/31/2019 08/02/2013 Implants Implanted Type Area Coal Hiker Device Identifier Shelf Expiration Model / Date Serial / Lot Bladder Stimulator Procedures Procedure Name Priority Date/Time Associated Comments Diagnosis ESTIMATED GFR Routine 06/14/2019 5:40 Results for this AM CDT procedure are in the results section. BASIC METABOLIC PANEL Routine 06/14/2019 5:40 Results for this AM CDT procedure are in the results section. HC COMPLETE BLD COUNT Routine 06/14/2019 5:40 Results for this W/AUTO DIFF AM CDT procedure are in the results section. PROTHROMBIN TIME WITH Routine 06/14/2019 5:40 Results for this INR AM CDT procedure are in the results section. CV SELECTIVE CORONARY Routine 06/13/2019 6:44 Results for this ANGIOGRAPHY PM CDT procedure are in the results section. ESTIMATED GFR Routine 06/13/2019 4:00 Results for this AM CDT procedure are in the results section. BASIC METABOLIC PANEL Routine 06/13/2019 4:00 Results for this AM CDT procedure are in the results section. HC COMPLETE BLD COUNT Routine 06/13/2019 4:00 Results for this W/AUTO DIFF AM CDT procedure are in the results section. PROTHROMBIN TIME WITH Routine 06/13/2019 4:00 Results for this INR AM CDT procedure are in the results section. PV TRANSCRANIAL DOPPLER Routine 06/12/2019 11:00 Results for this INTRACRANIAL ARTERIES AM CDT procedure are in COMPLETE the results section. US CAROTID DUPLEX Routine 06/12/2019 10:30 Results for this BILATERAL AM CDT procedure are in the results section. PROTHROMBIN TIME WITH Routine 06/12/2019 4:30 Results for this INR AM CDT procedure are in the results section. NM MYOCARDIAL PERFUSION Routine 06/11/2019 1:44 Results for this STRESS REST 1 DAY PM CDT procedure are in the results section. CV STRESS TEST NUCLEAR Routine 06/11/2019 1:44 Results for this CARDIO PM CDT procedure are in the results section. ECHOCARDIOGRAM 2D Routine 06/11/2019 11:28 Results for this COMPLETE W MMODE AM CDT procedure are in SPECTRAL COLOR DOPPLER the results (64524) section. ESTIMATED GFR Routine 06/11/2019 4:45 Results for this AM CDT procedure are in the results section. HEMOGLOBIN A1C Routine 06/11/2019 4:45 Results for this AM CDT procedure are in the results section. LIPID PANEL Routine 06/11/2019 4:45 Results for this AM CDT procedure are in the results section. PROTHROMBIN TIME WITH Routine 06/11/2019 4:45 Results for this INR AM CDT procedure are in the results section. BASIC METABOLIC PANEL Routine 06/11/2019 4:45 Results for this AM CDT procedure are in the results section. TROPONIN Timed 06/10/2019 10:20 Results for this PM CDT procedure are in the results section. TROPONIN Timed 06/10/2019 7:30 Results for this PM CDT procedure are in the results section. CT STROKE BRAIN WO STAT 06/10/2019 5:31 Results for this CONTRAST PM CDT procedure are in the results section. XR CHEST 2 VW STAT 06/10/2019 4:51 Results for this PM CDT procedure are in the results section. ESTIMATED GFR STAT 06/10/2019 4:44 Results for this PM CDT procedure are in the results section. PROTHROMBIN TIME WITH STAT 06/10/2019 4:44 Results for this INR PM CDT procedure are in the results section. PARTIAL THROMBOPLASTIN STAT 06/10/2019 4:44 Results for this TIME (PTT) PM CDT procedure are in the results section. B NATRIURETIC PEPTIDE STAT 06/10/2019 4:44 Results for this PM CDT procedure are in the results section. TROPONIN STAT 06/10/2019 4:44 Results for this PM CDT procedure are in the results section. COMPREHENSIVE METABOLIC STAT 06/10/2019 4:44 Results for this PANEL PM CDT procedure are in the results section. HC COMPLETE BLD COUNT STAT 06/10/2019 4:44 Results for this W/AUTO DIFF PM CDT procedure are in the results section. ECG 12-LEAD STAT 06/10/2019 4:36 Results for this PM CDT procedure are in the results section. CV PACEMAKER DEFIB ILR Routine 12/25/2018 INTERROGATION CV PACEMAKER DEFIB ILR Routine 09/25/2018 INTERROGATION after 06/27/2018 Results Estimated GFR (06/14/2019 5:40 AM CDT)Only the most recent of4 resultswithin the time period is included. [facility] Estimated GFR 57 (A) mL/min/1.73 [facility] Comment: [address] CatergoryUnitsInterpretation G1 >=90 Normal or high G2 60-89Mildly decreased [id number] to moderately decreased [id number] to severely decreased G4 15-29Severely decreased G5 <15Kidney failure The eGFR was calculated using the Chronic Kidney Disease Epidemiology Collaboration (CKD-EPI) equation. Interpretation is based on recommendations of the National Kidney Foundation-Kidney Disease Outcomes Quality Initiative (NKF-KDOQI) published in 2014. Specimen Plasma specimen Performing Organization Address City/State/Zipcode Phone Number [facility] DEPARTMENT OF PATHOLOGY AND [address] [place] [id number] [place] [id number] Prothrombin time with INR (06/14/2019 5:40 AM CDT)Only the most recent of5 resultswithin the time period is included. [facility] Prothrombin time 16.9 (H) 11.5 - 14.5 [facility] INR 1.4 [place] Comment: [place] The International Normalized Ratio (INR) is a therapeutic HOSPITAL monitoring tool for patients who are stable on oral anticoagulant therapy. An INR of 2.0-3.0 is suggested for deep vein thrombosis/pulmonary embolism. Specimen Blood Performing Organization Address City/State/Zipcode Phone Number [facility] DEPARTMENT OF PATHOLOGY AND [address] [place] [id number] [address] CBC with platelet and differential (06/14/2019 5:40 AM CDT)Only the most recent of3 resultswithin the time period is included. WBC 5.37 4.50 - 11.00 [facility] k/uL HOSPITAL RBC 5.32 4.40 - 6.00 [facility] m/uL [facility] HGB 17.5 14.0 - 18.0 [facility] g/dL [facility] HCT 53.5 (H) 41.0 - 51.0 % [facility] MCV 100.6 (H) 82.0 - 100.0 [facility] MCH 32.9 27.0 - 34.0 pg [facility] MCHC 32.7 31.0 - 37.0 [facility] g/dL [facility] RDW - SD 50.4 37.0 - 55.0 fL [facility] MPV 10.4 8.8 - 13.2 fL [facility] Platelet count 129 (L) 150 - 400 k/uL [facility] Nucleated RBC 0.00 /100 WBC [facility] Neutrophils 66.0 39.0 - 69.0 % [facility] Lymphocytes 18.4 (L) 25.0 - 45.0 % [facility] Monocytes 12.3 (H) 0.0 - 10.0 % [facility] Eosinophils 2.4 0.0 - 5.0 % [facility] Basophils 0.7 0.0 - 1.0 % [facility] Immature granulocytes 0.2Comment: 0.0 - 1.0 % [facility] "Immature HOSPITAL granulocytes" (promyelocytes , myelocytes, metamyelocytes ) Specimen Blood Performing Organization Address City/State/Zipcode Phone Number [facility] DEPARTMENT OF PATHOLOGY AND [address] [place] [address] GENOM[address] MEDICINE [address] [address] Basic metabolic panel (06/14/2019 5:40 AM CDT)Only the most recent of3 resultswithin the time period is included. Pathologist [facility] Sodium 142 135 - 148 mEq/L [facility] Potassium 3.9 3.5 - 5.0 mEq/L [facility] Chloride 101 98 - 112 mEq/L [facility] CO2 27 24 - 31 mEq/L [facility] Anion gap 14@ANIO 7 - 15 mEq/L [facility] BUN 28 (H) 8 - 23 mg/dL [facility] Creatinine 1.20 0.70 - 1.20 mg/dL [facility] Glucose 94 65 - 99 mg/dL [facility] Calcium 9.6 8.8 - 10.2 mg/dL [facility] Specimen Plasma specimen Performing Organization Address City/State/Zipcode Phone Number [facility] DEPARTMENT OF PATHOLOGY AND [address] [place] [address] GENOMIC MEDICINE [facility] [address] [place] [address] laborer steel handling procedure (06/13/2019 6:44 PM CDT) Specimen Narrative Performed At PATIENT PROFILE: HM [facility] 78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 Britton), HTN, HLD, CKD 3, TIAs, peripheral arterial disease, prostate cancer in remission who presented with chest pain and was found to have an abnormal stress test. Pharmacologic nuclear stress test on 06/11/2019 showed: 35% Total 17% Ischemia Moderate anteroapical and mid anterior perfusion defect during stress which improves with rest imaging. Mild apical septal, apical lateral and mid lateral perfusion defect during stress which improves with rest imaging. 18% Scar: Severe apical perfusion defect during stress which remains unchanged with rest imaging. There is a mild basal inferolateral perfusion defect during stress which remains unchanged with rest imaging. DESCRIPTION OF PROCEDURE: After obtaining informed consent, the patient was brought to the cardiac catheterization suite. Moderate sedation was administered with physician supervisionof patient consciousness, respiration, Oxygen saturation and CO2 monitoring, beginning at 1818 ( time)for a total period of 40 minutes. The right wrist was prepped and draped in normal sterile fashion. 3 cc of lidocaine was used as local anesthetic. The right radial artery was accessed using ultrasound guidance and a 6 Pakistani sheath placed. Selective coronary angiography was performed using a FL3.5 catheter to engage the left system and a WR catheter to engage the right system. At the conclusion of the procedure the arterial sheath was removed in the catheterization lab and hemostasis was obtained by application of a tracelet device with 13 cc air. The patient was returned to the labor contractor holding area for recovery. FINDINGS: Left heart catheterizations: Non obstructive disease was seen in the LAD and Cx. Prior stents were patent. Collaterals to the RCA were noted from the Cx. DISH WASHER of the RCA was noted. RECOMMENDATIONS: Recommend FFR guided PCI of the LAD +/- DISH WASHER PCI of the RCA down the road. We will discuss plan with the heart failure team. Recommend GI evaluation prior to any further interventions given that patient's reports that he has a history of having black tarry bowel movements. Performing Organization Address City/State/Zipcode Phone Number [facility] [address] [facility] [place] [address] Pv transcranial Doppler intracranial arteries (06/12/2019 11:00 AM CDT) Specimen Narrative Performed At [facility] Transcranial Doppler Report (TCD) [address]Name:BRANDYN ARRIAZA DPat.ID:[id number] .Date: 06/12/2019 Refer.MD:LALITO JOHNSON MD Exam Time: 10:23:00 AM Study Type:TCD DOBAge:1940,78YSex: MALE Sonogrphr: Devin Freire RDMS, RVTPat. Stat.:Inpatient Room:W720-BKzwmHst: , CPT - 4: 39934 Echo Event ID:[id number] Order ID:[id number] Reason for Study:Stroke. History of atypical chest pain, coronary arterial disease, ICM HFrEF, LVEF 20-24%, III diastolic dysfunction, facial numbness + blurry vision. Procedures:Colorflow, Pulsed wave Doppler Race:C SUMMARY: RIGHT LEFT Antegrade RetrogradeAntegrade Retrograde Ophthalmic Artery+ + RIGHT LEFT Normal Abnormal Not SeenNormal Abnormal Not Seen Siphon ++ MCA ++ YULIYA ++ WATER TREATMENT PLANT OPERATOR ++ Basilar ++ Vertebraldeep notch + ADDITIONAL FINDINGS: 1.Doppler waveforms of the "right vertebral artery" are slightly abnormal and suggest pre-steal. 2.Insonation of the right vertebral artery on affiliated carotid duplex demonstrates higher resistance in comparison to the contralateral vertebral artery; findings are somewhat consistent. 3.Otherwise, velocities appear to be within normal limits. PHYSICIAN INTERPRETATION: Doppler waveforms of the "right vertebral artery" are slightly abnormal and suggest pre-steal. Right vertebral vs subclavian stenosis. Rest of the exam is normal. Both [place] antegrade. Signed 06/13/2019 11:49 AM Reynaldo Storm MD, RPVI Procedure Note Interface, Radiology Results In - 06/13/2019 11:52 AM CDT Vascular Ultrasound Laboratory Transcranial Doppler Report (TCD) [address] [place] [address] Pat.Name: BRANDYN ARRIAZA Pat.ID: [id number] .Date: 06/12/2019 Refer.MD: LALITO JOHNSON MD Exam Time: 10:23:00 AM Study Type:TCD Age: 12 1940,78Y Sex: MALE Sonogrphr: Devin Freire RDMS, RVT Pat. Stat.:Inpatient Room: [facility] Tape Vol: , CPT - 4: 68462 Echo Event ID:[id number] Order ID: [id number] Reason for Study:Stroke. History of atypical chest pain, coronary arterial disease, ICM HFrEF, LVEF 20-24%, III diastolic dysfunction, facial numbness + blurry vision. Procedures:Colorflow, Pulsed wave Doppler Race: C SUMMARY: RIGHT LEFT Antegrade Retrograde Antegrade Retrograde Ophthalmic Artery + + RIGHT LEFT Normal Abnormal Not Seen Normal Abnormal Not Seen Siphon + + MCA + + YULIYA + + WATER TREATMENT PLANT OPERATOR + + Basilar + + Vertebral deep notch + ADDITIONAL FINDINGS: 1. Doppler waveforms of the "right vertebral artery" are slightly abnormal and suggest pre-steal. 2. Insonation of the right vertebral artery on affiliated carotid duplex demonstrates higher resistance in comparison to the contralateral vertebral artery; findings are somewhat consistent. 3. Otherwise, velocities appear to be within normal limits. PHYSICIAN INTERPRETATION: Doppler waveforms of the "right vertebral artery" are slightly abnormal and suggest pre-steal. Right vertebral vs subclavian stenosis. Rest of the exam is normal. Both Oa are antegrade. Signed 06/13/2019 11:49 AM Reynaldo Storm MD, RPVI Performing Organization Address City/State/Zipcode Phone Number [facility] [address] [place] [phone] Us carotid duplex (06/12/2019 10:30 AM CDT) Specimen Narrative Performed At [facility] Vascular Ultrasound Laboratory Carotid Artery Duplex Report [address] [facility] [address], [place] [id number] For quality systems specialist purposes, the categorization of the degree of the stenosis of this exam is based on criteria described in the IAC carotid stenosis grading white paper( www.intersocietal.org/Vascular) and Jayson Osman, Stone Gutierrez, et al. Carotid artery stenosis: andino-scale and Doppler US diagnosis--Society of Radiologists in Ultrasound Consensus Conference. Radiology. 2003 Aug; 229(2):340-6. Pat.Name:BRANDYN ARRIAZA Aleida.ID:[id number] .Date: 06/12/2019 Refer.MD:LALITO JOHNSON MD Exam Time: 9:33:00 AMStudy Type:Carotid DOBAge:1940,78YSex: MALE Sonogrphr: Devin Freire RDMS, RVTPat. Stat.:Inpatient Room:M982-JPyiqEfn: [facility] - 4: 75362 Echo Event ID:[id number] Order ID:[id number] Reason for Study:Facial numbness + blurry vision. Coronary arterial disease. History of acute systolic congestive heart failure, acute chest pain, a-fib, a-flutter. Procedures:Colorflow, Grayscale/2D, Pulsed wave Doppler Race:C SUMMARY: PHYSICAL ASSESSMENT BloodPulsesCarotid Pressure Carotid TemporalBruit Right IV ++0 Left 117/71 ++0 CAROTID ARTERY SCAN RIGHT:Intimal thickening noted within the common carotid artery with minimal hard plaque bodies noted in the kgk-wm-ryrgga segment. Non-stenotic, minimal, laminated, mixed plaque noted within the bulb with soft component extending into the proximal internal carotid artery. The external carotid artery appear to be clear. Colorflow is normal. Antegrade, higher resistant flow noted within the vertebral artery. Biphasic flow in the subclavian artery. LEFT: Minimal hard plaque bodies noted within the proximal and mid common carotid artery segments. Scattered hard plaque bodies noted throughout the bulb and internal carotid artery. The external carotid artery takes off at a right angle. Colorflow is normal. Antegrade vertebral artery (lower resistant in comparison to right vertebral artery). Triphasic subclavian artery. PRELIMINARY FINDINGS 1.Biphasic flow noted within the left subclavian artery; right subclavian artery demonstrates triphasic flow. 2.Flow within the right vertebral artery demonstrates higher resistance in comparison to the left vertebral artery; however, both demonstrate antegrade flow. 3.Along with findings in the affiliating TCD examination, pre-steal is suggestive; unable to perform bilateral brachial blood pressure due to antecubital IV in right arm. 4.Less than 50% stenosis noted within the right bulb. 5.Less than 50% stenosis noted within the left bulb and internal carotid artery. 6.Minimal, non-stenotic plaque bodies noted throughout the common carotid arteries, bilaterally. PHYSICIAN INTERPRETATION Bilateral carotid duplex examination demonstrated calcified atherosclerotic plaques in the bulbs/CCAs. Less than 50% stenosis in the bulb and internal carotid artery, bilaterally. Both vertebral arteries are antegrade. Carotid Findings:RightLeft Verteb.Flw High resistive Antegrade Subclavian Biphasic Triphasic MEASUREMENTS: DOPPLER CCA Dist CCA Dist PSV48 cm/sCCA Dist EDV11 cm/s CCA Dist EDV 9 cm/s CCA Mid CCA Mid PSV 63 cm/sCCA Mid PSV 51 cm/s CCA Mid EDV9 cm/sCCA Mid EDV9 cm/s CCA Prox CCA Prox PSV63 cm/sCCA Prox EDV17 cm/s CCA Prox EDV11 cm/s ECA Prox ECA Prox PSV58 cm/sECA Prox PSV52 cm/s ECA Prox EDV 4 cm/sECA Prox EDV 4 cm/s Right ICA Dist ICA Dist PSV41 cm/s ICA Dist ICA Dist EDV 7 cm/Raza Dist EDV16 cm/s ICA Dist PSV49 cm/s ICA Mid ICA Mid PSV 54 cm/Raza Mid PSV 66 cm/s ICA Mid EDV 21 cm/Raza Mid EDV 16 cm/s Right ICA Prox ICA Prox PSV36 cm/s ICA Prox ICA Prox EDV 7 cm/Raza Prox EDV13 cm/s Vertebral Vertebral PSV 22 cm/sVertebral EDV8 cm/s Vertebral EDV6 cm/s Right Subclavian Subclavian PSV58.5 cm/sSubclavian EDV 0 cm/s Left CCA Dist CCA Dist PSV46 cm/s Left CCA Prox CCA Prox PSV65 cm/s Left ICA Prox ICA Prox PSV46 cm/s Left Vertebral Vertebral PSV 30 cm/s Left Subclavian Subclavian PSV68 cm/sSubclavian EDV 0 cm/s Right ICA/CCA Ratio ICA/CCA PSV0.571 Left ICA/CCA Ratio ICA/CCA PSV0.902 Signed 06/13/2019 12:18 PM Reynaldo Storm MD, RPVI Procedure Note Interface, Radiology Results In - 06/13/2019 12:32 PM CDT [facility] Laboratory Carotid Artery Duplex Report [address] [place] [address] For quality systems specialist purposes, the categorization of the degree of the stenosis of this exam is based on criteria described in the IAC carotid stenosis grading white paper( www.intersocietal.org/Vascular) and Dawson, Pina., Matt, CMary JaneB., et al. Carotid artery stenosis: andino-scale and Doppler US diagnosis--Society of Radiologists in Ultrasound Consensus Conference. Radiology. 2003 Nov; 229(2):340-6. Pat.Name: BRANDYN ARRIAZA Kyung.ID: [id number] St.Date: 06/12/2019 Refer.MD: LALITO JOHNSON MD Exam Time: 9:33:00 AM Study Type:Carotid Age: 12 1940,78Y Sex: MALE Sonogrphr: Devin Freire, EMILIA, RVT Pat. Stat.:Inpatient Room: A744-A Tape Vol: ST CPT - 4: 35622 Echo Event ID:[id number] Order ID: [id number] Reason for Study:Facial numbness + blurry vision. Coronary arterial disease. History of acute systolic congestive heart failure, acute chest pain, a-fib, a-flutter. Procedures:Colorflow, Grayscale/2D, Pulsed wave Doppler Race: C SUMMARY: PHYSICAL ASSESSMENT Blood Pulses Carotid Pressure Carotid Temporal Bruit Right IV + + 0 Left 117/71 + + 0 CAROTID ARTERY SCAN RIGHT: Intimal thickening noted within the common carotid artery with minimal hard plaque bodies noted in the xwg-dy-yirnmo segment. Non-stenotic, minimal, laminated, mixed plaque noted within the bulb with soft component extending into the proximal internal carotid artery. The external carotid artery appear to be clear. Colorflow is normal. Antegrade, higher resistant flow noted within the vertebral artery. Biphasic flow in the subclavian artery. LEFT: Minimal hard plaque bodies noted within the proximal and mid common carotid artery segments. Scattered hard plaque bodies noted throughout the bulb and internal carotid artery. The external carotid artery takes off at a right angle. Colorflow is normal. Antegrade vertebral artery (lower resistant in comparison to right vertebral artery). Triphasic subclavian artery. PRELIMINARY FINDINGS 1. Biphasic flow noted within the left subclavian artery; right subclavian artery demonstrates triphasic flow. 2. Flow within the right vertebral artery demonstrates higher resistance in comparison to the left vertebral artery; however, both demonstrate antegrade flow. 3. Along with findings in the affiliating TCD examination, pre-steal is suggestive; unable to perform bilateral brachial blood pressure due to antecubital IV in right arm. 4. Less than 50% stenosis noted within the right bulb. 5. Less than 50% stenosis noted within the left bulb and internal carotid artery. 6. Minimal, non-stenotic plaque bodies noted throughout the common carotid arteries, bilaterally. PHYSICIAN INTERPRETATION Bilateral carotid duplex examination demonstrated calcified atherosclerotic plaques in the bulbs/CCAs. Less than 50% stenosis in the bulb and internal carotid artery, bilaterally. Both vertebral arteries are antegrade. Carotid Findings: Right Left Verteb.Flw High resistive Antegrade Subclavian Biphasic Triphasic MEASUREMENTS: DOPPLER CCA Dist CCA Dist PSV 48 cm/s CCA Dist EDV 11 cm/s CCA Dist EDV 9 cm/s CCA Mid CCA Mid PSV 63 cm/s CCA Mid PSV 51 cm/s CCA Mid EDV 9 cm/s CCA Mid EDV 9 cm/s CCA Prox CCA Prox PSV 63 cm/s CCA Prox EDV 17 cm/s CCA Prox EDV 11 cm/s ECA Prox ECA Prox PSV 58 cm/s ECA Prox PSV 52 cm/s ECA Prox EDV 4 cm/s ECA Prox EDV 4 cm/s Right ICA Dist ICA Dist PSV 41 cm/s ICA Dist ICA Dist EDV 7 cm/s ICA Dist EDV 16 cm/s ICA Dist PSV 49 cm/s ICA Mid ICA Mid PSV 54 cm/s ICA Mid PSV 66 cm/s ICA Mid EDV 21 cm/s ICA Mid EDV 16 cm/s Right ICA Prox ICA Prox PSV 36 cm/s ICA Prox ICA Prox EDV 7 cm/s ICA Prox EDV 13 cm/s Vertebral Vertebral PSV 22 cm/s Vertebral EDV 8 cm/s Vertebral EDV 6 cm/s Right Subclavian Subclavian PSV 58.5 cm/s Subclavian EDV 0 cm/s Left CCA Dist CCA Dist PSV 46 cm/s Left CCA Prox CCA Prox PSV 65 cm/s Left ICA Prox ICA Prox PSV 46 cm/s Left Vertebral Vertebral PSV 30 cm/s Left Subclavian Subclavian PSV 68 cm/s Subclavian EDV 0 cm/s Right ICA/CCA Ratio ICA/CCA PSV 0.571 Left ICA/CCA Ratio ICA/CCA PSV 0.902 Signed 06/13/2019 12:18 PM Reynaldo Storm MD, RPVI Performing Organization Address [facility] Phone Number [facility] [address] [place] [address] Cv stress test (06/11/2019 1:44 PM CDT) Resting HR 70 [facility] MUSE Resting BP 110 [facility] M[facility] Peak MET Achieved 1.0 [facility] MUSE Protocol Name REGADENO [facility] M[facility] Time in Exercise 00:01:00 [facility] M[facility] Phase Max Systolic BP 111 [facility] Max Diastolic BP 67 [facility] Max Heart Rate 77 [facility] Max Predicted Heart 142 [facility] MUSE Rate Target HR Formula (220 - Age)*100% [facility] MUSE Test Indication CAD [facility] M[facility] Stress Test Waveform interpreted in [facility] Impression report associated with image study. No interpretation is provided as part of this Stress ECG report.--Electronically Signed By Chente WALKER, Cortez Mcdonough ([id number]), newspaper managing editor Elizabeth Becerra ([id number]) on 06/11/2019 8:38:19 AM Target HR 142.00 bpm [facility] MUSE Specimen Narrative Performed At Performing Organization Address [facility] Phone Number [facility] MUSE [address] [place] [address] Nm myocardial perfusion (06/11/2019 1:44 PM CDT) Specimen Narrative Performed At [facility] Nuclear Cardiology and Cardiac CT [address] [place], [place] [id number] Myocardial Perfusion Imaging Report Stress ECG tracings are available in MUSE, EPIC and CV Web All ECG interpretations are included in this report Pat.Name:ODILIA BRANDYN Aleida.ID:[id number] St.Date: 06/11/2019 Refer.:LALITO JOHNSON MD Exam Time: 8:53:00 AM Study Type:Myocardial Perfusion Imaging Height:69inBSA: 1.81 m2 DOBAge:1940,78YSex: MALE BP:110/72HR: 70 bpm Nuclear Tech:Evelyn LEYVA,ARRON/AUTUMN Kathleen, ARRON Room:[facility] 7: 0744-A Nuclear Event ID:[id number] Order ID:[id number] Reason for Study:CAD, unspecified* History / Clinical:CAD s/p stents x6, HTN, HLD, TIA/CVA, CHF Procedures:Single Day Stress / Rest Race:C Risk Factors:Known Coronary Atherosclerosis, Cardiovascular Disease, Hyperlipidemia, Hypertension, TIA/Stroke Clinical Symptoms:Regadenoson SUMMARY: SCINTIGRAPHIC RESULTS Perfusion Defect Size (% LV) 35% Total 17% Gcibcvyl75% Scar Left Ventricular Perfusion Results There is severe apical perfusion defect during stress which remains unchanged with rest imaging There is moderate anteroapical and mid anterior perfusion defect during stress which improves with rest imaging. There is a mild apical septal, apical lateral and mid lateral perfusion defect during stress which improves with rest imaging. There is a mild basal inferolateral perfusion defect during stress which remains unchanged with rest imaging. Gated SPECT Results The post stress left ventricular ejection fraction is 25% with akinesis of all hypoperfused segments.Left ventricular end-diastolic volume is 289 ml; end-systolic volume is218 ml.The left ventricle is enlarged at stress and rest. Conclusion Abnormal regadenoson Tc-99m tetrofosmin myocardial perfusion study compatible with balanced scar and ischemia in the left anterior descending and circumflex coronary artery vascular territories. Ischemia is confined to the LAD territory. The LVEF is severely depressed. Severe LV dilation is present. RV is normal size with normal function. Comments The study results indicate a high (>2%) annual risk for a cardiac or non-fatal myocardial infarction. Study Quality/Artifacts The study quality is fair. Comparison to Previous Study None available. STRESS: Baseline Vital Signs:Intervention: Regadenoson 0.4mg/5ml IV over 10 seconds followed by radiotracer injection and 5ml saline flush HR:70 BP:110/72 Stress Test Results: Target HR: 121 Symptoms and Complications: Terminated: As per Regadenoson protocol Symptoms:None Conclusions: Normal heart rate response to pharmacological stress, Normal blood pressure response to pharmacological stress Signed 06/11/2019 06:27 PM Cortez Eldridge MD Procedure Note Interface, Radiology Results In - 06/11/2019 6:27 PM CDT Nuclear Cardiology and Cardiac CT [address] [place] [address] Myocardial Perfusion Imaging Report Stress ECG tracings are available in [employer] and [employer] All ECG interpretations are included in this report Pat.Name: BRANDYN ARRIAZA Pat.ID: [id number] .Date: 06/11/2019 Refer.MD: LALITO JOHNSON MD Exam Time: 8:53:00 AM Study Type:Myocardial Perfusion Imaging Height: 69in BSA: 1.81 m2 Age: 12 1940,78Y Sex: MALE BP: 110/72 HR: 70 bpm Nuclear Tech:Evelyn Thompson [facility]/EDIE KathleenMT, ARRT Room: [facility] 7: 0744-A Nuclear Event ID:[id number] Order ID: [id number] Reason for Study:CAD, unspecified* History / Clinical:CAD s/p stents x6, HTN, HLD, TIA/CVA, CHF Procedures:Single Day Stress / Rest Race: C Risk Factors:Known Coronary Atherosclerosis, Cardiovascular Disease, Hyperlipidemia, Hypertension, TIA/Stroke Clinical Symptoms:Regadenoson SUMMARY: SCINTIGRAPHIC RESULTS Perfusion Defect Size (% LV) 35% Total 17% Ischemia 18% Scar Left Ventricular Perfusion Results There is severe apical perfusion defect during stress which remains unchanged with rest imaging There is moderate anteroapical and mid anterior perfusion defect during stress which improves with rest imaging. There is a mild apical septal, apical lateral and mid lateral perfusion defect during stress which improves with rest imaging. There is a mild basal inferolateral perfusion defect during stress which remains unchanged with rest imaging. Gated SPECT Results The post stress left ventricular ejection fraction is 25% with akinesis of all hypoperfused segments. Left ventricular end-diastolic volume is 289 ml; end-systolic volume is 218 ml. The left ventricle is enlarged at stress and rest. Conclusion Abnormal regadenoson Tc-99m tetrofosmin myocardial perfusion study compatible with balanced scar and ischemia in the left anterior descending and circumflex coronary artery vascular territories. Ischemia is confined to the LAD territory. The LVEF is severely depressed. Severe LV dilation is present. RV is normal size with normal function. Comments The study results indicate a high (>2%) annual risk for a cardiac or non-fatal myocardial infarction. Study Quality/Artifacts The study quality is fair. Comparison to Previous Study None available. STRESS: Baseline Vital Signs: Intervention: Regadenoson 0.4mg/5ml IV over 10 seconds followed by radiotracer injection and 5ml saline flush HR: 70 BP: 110/72 Stress Test Results: Target HR: 121 Symptoms and Complications: Terminated: As per Regadenoson protocol Symptoms: None Conclusions: Normal heart rate response to pharmacological stress, Normal blood pressure response to pharmacological stress Signed 06/11/2019 06:27 PM Cortez Eldridge MD Performing Organization Address City/State/Zipcode Phone Number [facility] [address] [place] [address] Echocardiogram complete w contrast and 3D if needed (06/11/2019 11:28 AM CDT) Specimen Narrative Performed At [facility] Echocardiography Report [id number]Name:BRANDYN ARRIAZA [facility] Institutebib.ID:[id number] .Date: 06/11/2019 Refer.MD:LALITO JOHNSON MD Exam Time: 10:21:00 AM Study Type:Routine Echo Height:70inWeight: 147lb BSA: 1.83 m2 DOBAge:1940,78Y Sex: MALEBP:110/72 HR:70 bpmSonogrphr: Destinee Loya [facility] Pat. Stat.:Inpatient Room:[facility] Study Status:Final Echo Event ID:[id number] Order ID:[id number] Reason for Study:Re-eval of known HF (systolic or diastolic) History / Clinical:Chest pain, PALPITATIONS Procedures:2D Echo, Colorflow Doppler, Intravenous Definity Contrast Race:C SUMMARY: LV size is moderate to severely enlarged. LV EF is severely depressed. RV systolic function is normal. Estimated PA systolic pressure is 46 mmHg, assuming a mean RAP of 10 mmHg. Diastolic dysfunction Grade III (Severe): Impaired relaxation with restrictive LV filling pressures. FINDINGS: LV: LV size is gdzhjhwk-fr-cpyodpri enlarged. There is severe eccentricLV hypertrophy. LV EF is severely depressed. EstimatedEF is 20-24%. RV: RV size is normal. A pacemaker wire is seen in the RV. RV systolicfunction is normal. RV wall motion is normal. LA: LA volume is severely enlarged. RA: RA volume is normal. A pacemaker wire is seen. AO: Aortic root diameter is normal. MALI: No pericardial effusion. AV: No structural AV abnormalities noted. Mild aortic regurgitation. MV: No structural MV abnormalities noted. Mild mitral regurgitation. PV: No structural PV abnormalities noted. A trace of pulmonic regurgitation. TV: No structural TV abnormalities noted. Moderate tricuspid regurgitation Bonds: Diastolic dysfunction Grade III (Severe): Impaired relaxationwith restrictive LV filling pressures. Other:Estimated PA systolic pressure is 46 mmHg, assuming a mean RAPof 10 mmHg. MEASUREMENTS: 2D Parasternal Long [place] LVOT 2.2 cmLA Ds4.6 cm LVIDd6.1 cmIndex3.3 cm/m Ao Rtd 3.8 cm Index2.1 cm/m LVIDs5.2 cm LV Emhk473.4 g(122-174) LV%fs 15 % LVM Qbafg694.1 g/m2 IVSd 1.1 cmRWT0.5 LVPWd1.5 cm LA Sng Plane LA Area 35.4 cm2(8.8-23.4) LA Vol 144.3 ml Index78.8 ml/m LA LngAx 6.9 cm RA Sng Plane RA Area 15.8 cm2(8.3-19.5) RA Vol46.4 ml Index25.3 ml/m RA LngAx 4.6 cm DOPPLER LVOT Stroke Vol LVOT 2.2 cmLVOT CO2.5 l/min LVOT TVI 9.4 cmLVOT CI1.4 l/m/m2 LVOT Tm254 tzigIA40 bpm LVOT SV 35.9 ml WALL MOTION: RESTING WALL MOTION: Mid Anterior, Mid Anteroseptal, Mid Inferolateral, Mid Anterolateral, Apical Anterior, Apical Septal, Apical Inferior, Apical Lateral, Apical howell are akinetic.Basal Anterior, Basal Inferolateral, Basal Anterolateral, Mid Inferoseptal, Mid Inferior howell are hypokinetic. Normal in all other howell. Wall Index=2.4 Signed 06/11/2019 08:04 PM Lana Nicholas M.D. Procedure Note Interface, Radiology Results In - 06/11/2019 8:04 PM T Echocardiography Report [id number] [address] Pat.Name: BRANDYN ARRIAZA Pat.ID: [id number] .Date: 06/11/2019 Refer.MD: LALITO JOHNSON MD Exam Time: 10:21:00 AM Study Type:Routine Echo Height: 70in Weight: 147lb BSA: 1.83 m2 Age: 12 1940,78Y Sex: MALE BP: 110/72 HR: 70 bpm Sonogrphr: MARILIN Hooker Pat. Stat.:Inpatient Room: [facility] Study Status:Final Echo Event ID:[id number] Order ID: [id number] Reason for Study:Re-eval of known HF (systolic or diastolic) History / Clinical:Chest pain, PALPITATIONS Procedures:2D Echo, Colorflow Doppler, Intravenous Definity Contrast Race: C SUMMARY: LV size is moderate to severely enlarged. LV EF is severely depressed. RV systolic function is normal. Estimated PA systolic pressure is 46 mmHg, assuming a mean RAP of 10 mmHg. Diastolic dysfunction Grade III (Severe): Impaired relaxation with restrictive LV filling pressures. FINDINGS: LV: LV size is bqkklyqu-ej-znuwopby enlarged. There is severe eccentric LV hypertrophy. LV EF is severely depressed. Estimated EF is 20-24%. RV: RV size is normal. A pacemaker wire is seen in the RV. RV systolic function is normal. RV wall motion is normal. LA: LA volume is severely enlarged. RA: RA volume is normal. A pacemaker wire is seen. AO: Aortic root diameter is normal. MALI: No pericardial effusion. AV: No structural AV abnormalities noted. Mild aortic regurgitation. MV: No structural MV abnormalities noted. Mild mitral regurgitation. PV: No structural PV abnormalities noted. A trace of pulmonic regurgitation. TV: No structural TV abnormalities noted. Moderate tricuspid regurgitation Bonds: Diastolic dysfunction Grade III (Severe): Impaired relaxation with restrictive LV filling pressures. Other: Estimated PA systolic pressure is 46 mmHg, assuming a mean RAP of 10 mmHg. MEASUREMENTS: 2D Parasternal Long [place] LVOT 2.2 cm LA Ds 4.6 cm LVIDd 6.1 cm Index 3.3 cm/m Ao Rtd 3.8 cm Index 2.1 cm/m LVIDs 5.2 cm LV Mass 364.4 g (122-174) LV%fs 15 % LVM Index 199.1 g/m2 IVSd 1.1 cm RWT 0.5 LVPWd 1.5 cm LA Sng Plane LA Area 35.4 cm2 (8.8-23.4) LA Vol 144.3 ml Index 78.8 ml/m LA LngAx 6.9 cm RA Sng Plane RA Area 15.8 cm2 (8.3-19.5) RA Vol 46.4 ml Index 25.3 ml/m RA LngAx 4.6 cm DOPPLER LVOT Stroke Vol LVOT 2.2 cm LVOT CO 2.5 l/min LVOT TVI 9.4 cm LVOT CI 1.4 l/m/m2 LVOT Tm 254 msec HR 70 bpm LVOT SV 35.9 ml WALL MOTION: RESTING WALL MOTION: Mid Anterior, Mid Anteroseptal, Mid Inferolateral, Mid Anterolateral, Apical Anterior, Apical Septal, Apical Inferior, Apical Lateral, Apical howell are akinetic. Basal Anterior, Basal Inferolateral, Basal Anterolateral, Mid Inferoseptal, Mid Inferior howell are hypokinetic. Normal in all other howell. Wall Index=2.4 Signed 06/11/2019 08:04 PM Lana Nicholas M.D. Performing Organization Address City/[facility]/Zipcode Phone Number [facility] [address] [place] [address] Hemoglobin A1c (06/11/2019 4:45 AM CDT) Hemoglobin A1C 6.6 (H) 4.0 - 5.6 % [facility] Comment: HOSPITAL HbA1c cutoffs for diagnosing diabetes: 4.0% - 5.6%=normal 5.7% - 6.4%=increased risk for diabetes (prediabetes) >=6.5%=diabetes Goals for glycemic control (ADA 2016) < 7.0%Target for non adults with diabetes. More or less stringent targets may be appropriate for individual patients. <7.5% Target for Children and adolescents with type 1 diabetes. Specimen Blood Performing Organization Address [facility] [place] [facility] Cent[facility]ode Phone Number [facility] DEPARTMENT OF PATHOLOGY AND [address] [place] [address] GENOMIC MEDICINE [facility] [address] [place] [address] Lipid panel (06/11/2019 4:45 AM CDT) Cholesterol 118 <200 mg/dL [facility] Triglycerides 126 <150 mg/dL [facility] HDL cholesterol 42 >40 mg/dL [facility] LDL cholesterol 65Comment: Result <100 mg/dL [place] obtained by direct TAOIST LDL measurement [facility] Lipid panel [facility] interpretation Comment: TAOIST Total Cholesterol (mg/dL) [facility] <200 Desirable 122-674Smzwzqpmyu-xljy >=240High Triglycerides (mg/dL) <150 Normal 608-545Lvoslxkuid-ymsa 200-499High >=500Very high HDL Cholesterol (mg/dL) <40Low (male) <40Low (female) LDL Cholesterol (mg/dL) <100 Optimal 100-129Near or above optimal [phone]-qbuu 160-189High >=190Very high Risk Catergories that modify LDL goals. Risk CatergoriesLDL goal (mg/dL) CHD and CHD risk equivalent<100 (10-year risk >20%) Multiple (2+) risk factors <130 (10-year risk=<20%) 0-1 risk factors <160 (<10-year risk) Defining levels of lipids in metabolic syndrome Triglycerides>=150 mg/dL HDL Cholesterol Men<40 mg/dL Women<40 mg/dL Non-HDL cholesterol is a second target for therapy in persons with high triglycerides (>=200 mg/dL) Specimen Plasma specimen Performing Organization Address City/[facility] [place] [facility] Phone Number [facility] DEPARTMENT OF PATHOLOGY AND [address] [place] [id number] [place] [address] Troponin (06/10/2019 10:20 PM CDT)Only the most recent of3 resultswithin the time period is included. Troponin 0.015 0.000 - 0.040 [facility] Comment: ng/mL [facility] changed methodology effective: 03/06/2019 at 10:00 am The new method has a 99th percentile cutoff of 0.040 ng/mL Specimen Plasma specimen Performing Organization Address [facility] Phone Number [facility] DEPARTMENT OF PATHOLOGY AND [address] [place] [id number] [place] [address] Stroke Brain Wo Contrast (06/10/2019 5:31 PM CDT) Specimen Narrative Performed At EXAMINATION:CT STROKE BRAIN WO CONTRAST RADIANT CLINICAL HISTORY:Focal neuro deficit6 hrsstroke suspected, L facial numbness 8am COMPARISON:None. TECHNIQUE: CT imaging was performed with iterative reconstruction technique and/or automated exposure control to reduce radiation dose. Findings: No intracranial hemorrhage, acute transcortical ischemia, extra-axial fluid collections or parenchymal mass lesions. No skull fractures or aggressive bony lesions. Mild chronic ischemic small vessel white matter changes. Intracranial vascular calcifications. Bilateral lens surgery. IMPRESSION: No acute intracranial abnormalities. Findings were discussed with and acknowledged by SD WORRELL at 06/10/2019 5:33 PM. [facility]-[id number] Procedure Note Hm Interface, Radiology Results Incoming - 06/10/2019 5:40 PM CDT EXAMINATION: CT STROKE BRAIN WO CONTRAST CLINICAL HISTORY: Focal neuro deficit 6 hrs stroke suspected, L facial numbness 8am COMPARISON: None. TECHNIQUE: CT imaging was performed with iterative reconstruction technique and /or automated exposure control to reduce radiation dose. Findings: No intracranial hemorrhage, acute transcortical ischemia, extra-axial fluid collections or parenchymal mass lesions. No skull fractures or aggressive bony lesions. Mild chronic ischemic small vessel white matter changes. Intracranial vascular calcifications. Bilateral lens surgery. IMPRESSION: No acute intracranial abnormalities. Findings were discussed with and acknowledged by SD WORRELL at 06/10/2019 5:33 PM. [facility]-[id number] Performing Organization Address [facility] [place] [facility] Centercode Phone Number [facility] [address] [place] [address] XR Chest 2 Vw (06/10/2019 4:51 PM CDT) Specimen Narrative Performed At EXAMINATION:XR CHEST 2 VW RADIANT CLINICAL HISTORY:Chest Pain COMPARISON:None. IMPRESSION: 1.No focal or consolidative pulmonary opacity. 2.Normal heart size. Atherosclerotic aorta. Right chest AICD. Left chest pacing leads. 3.Generalized bone demineralization and degenerative changes. [facility]-[id number] Procedure Note Interface, Radiology Results Incoming - 06/10/2019 4:55 PM CDT EXAMINATION: XR CHEST 2 VW CLINICAL HISTORY: Chest Pain COMPARISON: None. IMPRESSION: 1. No focal or consolidative pulmonary opacity. 2. Normal heart size. Atherosclerotic aorta. Right chest AICD. Left chest pacing leads. 3. Generalized bone demineralization and degenerative changes. [facility]-[id number] Performing Organization Address [facility] Phone Number [facility] [address] [place] [address] Partial thromboplastin time, activated (06/10/2019 4:44 PM CDT) PTT 40.9 (H) 23.0 - 36.0 [facility] Comment: [facility] PTT therapeutic range for unfractionated heparin is 61.0-112.0 seconds which corresponds to Anti-Xa 0.3-0.7 U/ml. Specimen Blood Performing Organization Address [facility]/Zipcode Phone Number [facility] DEPARTMENT OF PATHOLOGY AND [address] [place] [address] GEN[address] [address] B natriuretic peptide (06/10/2019 4:44 PM CDT) BNP 957 (H) 0 - 100 pg/mL [facility] Specimen Blood Performing Organization Address City/State/Zipcode Phone Number [facility] DEPARTMENT OF PATHOLOGY AND [address] [place] [address] [address] Comprehensive metabolic panel (06/10/2019 4:44 PM CDT) Sodium 139 135 - 148 [facility] mEq/L [facility] Potassium 4.4 3.5 - 5.0 [facility] mEq/L [facility] Chloride 100 98 - 112 mEq/L [facility] CO2 27 24 - 31 mEq/L [facility] Anion gap 12@ANIO 7 - 15 mEq/L [facility] BUN 24 (H) 8 - 23 mg/dL [facility] Creatinine 1.30 (H) 0.70 - 1.20 [facility] mg/dL [facility] Glucose 116 (H) 65 - 99 mg/dL [facility] Calcium 9.8 8.8 - 10.2 [facility] mg/dL [facility] Protein 8.0 6.3 - 8.3 g/dL [facility] Comment: HOSPITAL 4.6-7.0 g/dL 1 week 4.4-7.6 g/dL 7 months-1year5.1-7.3 g/dL 1-2 years5.6-7.5 g/dL >3 years6.0-8.0 g/dL 18-150 6.3-8.3 g/dL Albumin 4.2 3.5 - 5.0 g/dL [facility] A/G ratio 1.1 0.7 - 3.8 [facility] Alkaline phosphatase 73 40 - 129 U/L [facility] AST 27 10 - 50 U/L [facility] ALT 19 5 - 50 U/L [facility] Total bilirubin 0.6 0.0 - 1.2 [facility] mg/dL [facility] Specimen Plasma specimen Performing Organization Address City/State/Zipcode Phone Number [facility] DEPARTMENT OF PATHOLOGY AND [address] [place] [address] [address] ECG 12 lead (06/10/2019 4:36 PM CDT) Ventricular rate 142 [facility] Atrial rate 142 [facility] MUSE QRSD interval 40 [facility] QT interval 208 [facility] QTC interval 319 [facility] MUSE QRS axis 1 48 [facility] MUSE T wave axis -60 [facility] MUSE EKG impression Ventricular-paced [facility] MUSE rhythm in a pattern of bigeminy-Abnormal ECG-In automated comparison with ECG of 13-JUN-2017 14:31,-Vent. rate has decreased BY 7 BPM- Specimen Narrative Performed At Performing Organization Address City/State/[facility] [place] [facility] Centercode Phone Number [facility] MUSE [address] [place] [address] CV pacemaker defib or ilr interrogation (12/25/2018) Narrative Performed At CV pacemaker defib or ilr interrogation (09/25/2018) Narrative Performed At after 06/27/2018 Advance Directives For more information, please contact: [phone] Type Date Recorded Patient Quality Assurance Qa Lab Technician Explanation Advance Directives, Living Will and Medical Power of Sanitation Tank Washer
--- OUTSIDE RECORDS SUMMARY | 2019-06-28 10:46 | XMS REPORT | Continuity of Care Document ---
:1940 Author Organization Sample6 Care Team Providers Name Role Phone Sample6 Unavailable Unavailable Problems Problem Status Onset Classification Date Comments Source Date Reported UNK Active 05/15/20 [place]/STEMI Active 03/25/[address] Chest pain Resolved Problem 07/02/2012 [facility], OPID [place] MRSA Active Problem 07/02/2012 - nares [facility] 2Problem added by Discern Expert. [facility] Myocardial Active Problem 07/02/2012 [facility] infarction [facility] AMI Active [facility] NOS-INITIAL Medical EPISODE Center Medications Medication Details Route Status Patient Ordering Order Source Instructions Provider Date Nitrostat 0.4 0.4 mg, 1 tab, SL Active [place] mg sublingual SL, Q5Min, 012 Medical [...] mg 2.5 mg, 0.5 PO Active Krishnan [facility] oral tablet tab, PO, Q12H, 012 Medical 30 tab, 3, 3, Center Substitution Allowed, TAB Fleet Enema 133 ml, Route: PA No Trey [facility] PA, Drug Form: Longer 012 Medical MARINA, ONCE, Active Center Start date: 03/28/12 17:30:00, Stop date: 03/28/12 17:30:00 lactulose 20 gm, 30 mL, PO No rTey [facility] Route: PO, Longer 012 Medical Drug Form: Active Center SYRP, Q2H, times 2 doses, Start date: 03/28/12 10:00:00, Duration: 2 doses or times, Stop date: 03/28/12 12:00:00 MiraLax 17 gm, 1 pkt, PO No David [facility] Route: PO, Longer 012 Medical Drug form: Active Center PWDR, ONCE, Start date: 03/27/12 18:09:00, Duration: 1 doses or times, Stop date: 03/27/12 18:09:00 isosorbide 10 mg, 1 tab, PO No Dabaghi [facility] dinitrate Route: PO, Longer 012 Medical Drug form: Active Center TAB, BID, Start date: 03/27/12 9:00:00, Duration: 30 day, Stop date: 04/25/12 17:00:00 ondansetron 4 mg, 2 mL, IV No [place] [facility] Route: IV, Longer 012 Medical Drug form: Active Center INJ, Q6H, PRN Nausea, Start date: 03/26/12 18:45:00, Duration: 30 day, Stop date: 04/25/12 18:44:00 Protonix 40 mg, 1 tab, PO No John [facility] Route: PO, Longer 012 Medical Drug form: Active Center ECTAB, Before Dinner, Start date: 03/26/12 16:30:00, Duration: 30 day, Stop date: 04/24/12 16:30:00 clopidogrel 75 mg, 1 tab, PO No Griffin [facility] Route: PO, Longer Azucena 012 Medical Drug form: Active Center TAB, Daily, Start date: 03/26/12 9:00:00, Duration: 30 day, Stop date: 04/24/12 9:00:00 nitroglycerin 0.5 inch, TOP No Dabaghi [facility] 2% topical Route: TOP, Longer 012 [...] 2 mg 2-3 tab, PO, PO Active [facility] oral tablet Bedtime, PRN, 012 Medical 20 tab, Center Anxiety, Substitution Allowed lisinopril 2.5 mg, 0.5 PO No Griffin [facility] tab, Route: Longer Azucena 012 Medical PO, Drug form: Active Center TAB, Q12H, Start date: 03/25/12 22:00:00, Duration: 30 day, Stop date: 04/24/12 21:00:00 aspirin 325 mg 325 mg, 1 tab, PO No Griffin [facility] tablet, enteric Route: PO, Longer Azucena 012 Medical coated Drug form: Active Center TAB, Daily, Start date: 03/25/12 22:00:00, Duration: 30 day, Stop date: 04/24/12 9:00:00 atorvastatin 80 mg, 1 tab, PO No Griffin [facility] Route: PO, Longer Azucena 012 Medical Drug form: Active Center TAB, Bedtime, Start date: 03/25/12 22:00:00, Duration: 30 day, Stop date: 04/24/12 21:00:00 morphine 2 mg, 1 mL, IVP No Griffin [facility] Sulfate Route: IVP, Longer Azucena 012 Medical Drug form: Active Center INJ, ONCE, Start date: 03/25/12 22:00:00, Stop date: 03/25/12 22:00:00 carvedilol 3.125 mg, 1 PO No Griffin [facility] tab, Route: Longer Azucena 012 Medical PO, Drug form: Active Center TAB, Q12H, Start date: 03/25/12 21:00:00, Duration: 30 day, Stop date: 04/24/12 9:00:00 LORAzepam 2 mg, 1 mL, PO No Griffin [facility] Route: PO, Longer Azucena 012 Medical Drug form: Active Center SUSP, Bedtime, PRN Insomnia, Start date: 03/25/12 20:52:00, Stop date: 04/24/12 20:51:00 Nubain 2 mg, 0.2 mL, IVP No Trey [facility] Route: IVP, Mary Mireles Medical Drug form: Active Center INJ, Q3H, PRN Pain Score 1-3, Start date: 03/25/12 20:04:00, Duration: 30 day, Stop date: 04/24/12 20:03:00 nitroglycerin 0.4 mg, 1 tab, SL No Griffin [facility] SL Tab Route: SL, Longer Azucena 012 Medical Drug form: Active Center TAB, Q5Min, PRN Chest Pain, Start date: 03/25/12 20:04:00, Duration: 3 doses or times, Stop date: Limited # of times Sodium Chloride 500 mL, Rate: IV No Lupillo [facility] 0.9% IV 500 mL 30 ml/hr, [facility] Medical Infuse over: Active Center 16.7 hr, Route: IV, Dosing Weight 79.545 kg, Total Volume: 500, Start date: 03/25/12 20:04:00, Duration: 30 day, Stop date: 04/24/12 20:03:00 Heparin - 25,000 unit, IV No Dabaghi [facility] infusion (ACS 500 mL, Rate: Longer [...] Index 1.6 0.0 - 2.5 03/29 Normal [facility] CHEMISTRY CK MB 3.0 0.5 - 3.6 03/29 Normal [facility] CHEMISTRY Total CK 188 12 - 191 03/29 Normal [facility] CHEMISTRY CK MB Index 1.6 0.0 - 2.5 03/28 Normal [facility] CHEMISTRY CK MB 6.4 0.5 - 3.6 03/28 [facility] CHEMISTRY Total CK 401 12 - 191 03/28 [facility] CHEMISTRY Magnesium 2.0 1.8 - 2.4 03/28 Normal [facility] CHEMISTRY Troponin-I 23.00 0.00 - 03/28 CRIT <sup>9</sup>Res [facility] 0.40 /2012 ult Comment: Medical Critical Center Result(s) called to charmaine acevedo at _03/28/2012 4:47 by_lg. Read back OK. CHEMISTRY Troponin-T 4.180 0.000 - 03/28 CRIT <sup>6</sup>Res [facility] 0.100 /2011 ult Comment: Medical Critical Center Result(s) called to wilmer krishnan at 03/28/2012 4:45 by tac. Read back OK. CHEMISTRY AGAP 11.7 10.0 - 03/28 Normal [place] .0 Medical Center CHEMISTRY CO2 28 24 - 32 03/28 Normal [facility] Center CHEMISTRY Calcium Lvl 7.9 8.5 - 10.5 03/28 LOW [facility] CHEMISTRY Chloride Lvl 105 95 - 109 03/28 Normal [facility] CHEMISTRY Potassium 4.7 3.5 - 5.1 03/28 Normal [facility] CHEMISTRY Sodium Lvl 140 135 - 145 03/28 Normal [facility] CHEMISTRY Creatinine 1.1 0.5 - 1.4 03/28 Normal [facility] Center CHEMISTRY BUN 21 7 - 22 03/28 Normal [facility] CHEMISTRY Glucose Lvl 114 70 - 99 03/28 HI <sup>3</sup>Int erpretive Data: Medical Adult reference Center range values reflect the clinical guidelines of the [place] [employer]. CHEMISTRY Phosphorus 2.8 2.5 - 4.5 03/28 Normal [facility] HEMATOLOGY PT 15.8 12.0 - 03/28 [place] 14.7 [facility] HEMATOLOGY INR 1.26 0.85 - 03/28 [place] <sup>14</sup>In [facility] 1. terpretive Medical Data: Center RECOMMENDED RANGES FOR PROTIME INR: 2.0-3.0 for most medical and surgical thromboembolic states. 2.5-3.5 for artificial heart valves and recurrent embolism. INR SHOULD BE USED ONLY FOR PATIENTS ON STABLE ANTICOAGULANT THERAPY. HEMATOLOGY PTT 30.2 22.9 - 03/28 Normal <sup>17</sup>In [facility] 35.8 terpretive Medical Data: Heparin Center Therapeutic Range: 57 - 92 Seconds HEMATOLOGY RBC 3.93 4.70 - 03/28 LOW [place] 6.10 [facility] HEMATOLOGY Hgb 12.4 14.0 - 03/28 [facility] 18.0 [facility] HEMATOLOGY Platelet 88 133 - 450 03/28 LOW [facility] HEMATOLOGY MCH 31.6 27.0 - 03/28 HI [place] 31.0 [facility] HEMATOLOGY MCHC 33.3 32.0 - 03/28 Normal [place] 36.0 [facility] HEMATOLOGY MPV 8.1 7.4 - 10.4 03/28 Normal [facility] Center HEMATOLOGY MCV 94.8 80.0 - 03/28 HI [place] 94.0 /2011 [facility] HEMATOLOGY RDW 14.0 11.5 - 03/28 Normal [place] 14.5 [facility] HEMATOLOGY WBC 7.3 3.7 - 10.4 03/28 Normal [facility] HEMATOLOGY Hct 37.2 42.0 - 03/28 LOW [place] 54.0 /2011 [facility] CHEMISTRY CK MB Index 3.2 0.0 - 2.5 03/27 [facility] Center CHEMISTRY CK MB 34.7 0.5 - 3.6 03/27 [facility] CHEMISTRY Myoglobin 142 25 - 72 03/27 [facility] CHEMISTRY Troponin-T 5.710 0.000 - 03/27 CRIT <sup>7</sup>Res [facility] 0.100 /2011 ult Comment: Medical Critical Center Result(s) called to Mata Lazo at _03/27/2012 6:30 by_.tvs Read back OK. CHEMISTRY Calcium Lvl 7.8 8.5 - 10.5 03/27 LOW Medical Center CHEMISTRY CO2 27 24 - 32 03/27 Normal Medical Center CHEMISTRY Chloride Lvl 107 95 - 109 03/27 Normal Medical Center CHEMISTRY Potassium 4.6 3.5 - 5.1 03/27 Normal [facility] Medical Center CHEMISTRY BUN 20 7 - 22 03/27 Normal Medical Center CHEMISTRY Glucose Lvl 113 70 - 99 03/27 HI <sup>4</sup>Int erpretive Data: Medical Adult reference Center range values reflect the clinical guidelines of the [place] [employer]. CHEMISTRY Sodium Lvl 142 135 - 145 03/27 Normal [facility] Center CHEMISTRY Creatinine 1.4 0.5 - 1.4 03/27 Normal [facility] Center CHEMISTRY AGAP 12.6 10.0 - 03/27 Normal [facility] 20.0 [facility] Center CHEMISTRY Magnesium 2.2 1.8 - 2.4 03/27 Normal [facility] Medical Center CHEMISTRY Total CK 1092 12 - 191 03/27 [facility] CHEMISTRY Phosphorus 2.2 2.5 - 4.5 03/27 LOW Medical Center HEMATOLOGY PT 16.1 12.0 - 03/27 HI [facility] 14.7 Medical Center HEMATOLOGY PTT 65.5 22.9 - 03/27 HI <sup>18</sup>In [facility] 35.8 /2011 terpretive Medical Data: Heparin Center Therapeutic Range: 57 - 92 Seconds HEMATOLOGY INR 1.29 0.85 - 03/27 HI <sup>15</sup>In [facility] 1.17 terpretive Medical Data: Center RECOMMENDED RANGES FOR PROTIME INR: 2.0-3.0 for most medical and surgical thromboembolic states. 2.5-3.5 for artificial heart valves and recurrent embolism. INR SHOULD BE USED ONLY FOR PATIENTS ON STABLE ANTICOAGULANT THERAPY. HEMATOLOGY WBC 7.6 3.7 - 10.4 03/27 Normal [facility] HEMATOLOGY Hgb 12.2 14.0 - 03/27 [facility] 18.0 /2011 [facility] HEMATOLOGY RBC 3.87 4.70 - 03/27 [facility] 6.10 /2011 [facility] HEMATOLOGY Hct 36.5 42.0 - 03/27 [facility] [place] 54.0 /2011 [facility] HEMATOLOGY MCH 31.5 27.0 - 03/27 [facility] [place] 31.0 /2011 [facility] HEMATOLOGY MCHC 33.5 32.0 - 03/27 [facility] 36.0 /2011 [facility] HEMATOLOGY MCV 94.1 80.0 - 03/27 [facility] 94.0 /2011 [facility] HEMATOLOGY RDW 14.2 11.5 - 03/27 [facility] 14.5 [facility] HEMATOLOGY Platelet 94 133 - 450 03/27 [facility] /2011 [facility] HEMATOLOGY MPV 7.5 7.4 - 10.4 03/27 Normal [facility] HEMATOLOGY PT 16.0 12.0 - 03/27 [facility] 14.7 /2011 [facility] HEMATOLOGY INR 1.28 0.85 - 03/27 [place] <sup>16</sup>In [facility] 1.17 terpretive Medical Data: Center RECOMMENDED RANGES FOR PROTIME INR: 2.0-3.0 for most medical and surgical thromboembolic states. 2.5-3.5 for artificial heart valves and recurrent embolism. INR SHOULD BE USED ONLY FOR PATIENTS ON STABLE ANTICOAGULANT THERAPY. HEMATOLOGY PTT 54.5 22.9 - 03/27 [place] <sup>19</sup>In [facility] 35.8 terpretive Medical Data: Heparin Center Therapeutic Range: 57 - 92 Seconds CHEMISTRY Troponin-I >40 ng/mL 10 0.00 - 03/26 CRIT <sup>10</sup>Re [facility] *CRIT* 0.40 sult Comment: Medical (03/26/2012 10:18:00) Critical Center Result(s) called to paz turner at _03/26/2012 11:49 by_lss. Read back OK. CHEMISTRY Troponin-T 8.960 0.000 - 03/26 CRIT <sup>8</sup>Res [facility] 0.100 /2011 ult Comment: Medical Critical Center Result(s) called to Paz Diez at 03/26/2012 11:20 by Juan Francisco. Read back OK. CHEMISTRY Myoglobin 396 25 - 72 03/26 [facility] BACTERIAL - MRSA by PCR Positive 1, 2 03/26 ABN <sup>1</sup>Res [facility] SEROLOGY *ABN* /2011 ult Comment: Medical [...] ng/mL 11 0.00 - 03/26 CRIT <sup>11</sup>Re [facility] *CRIT* 0.40 /2011 sult Comment: Medical (03/26/2012 03:50:00) Critical Center Result(s) called to Disha Solis at 03/26/2012 5:23 by howard. Read back OK. CHEMISTRY AGAP 14.5 10.0 - 03/26 Normal [facility] 20.0 Medical Center CHEMISTRY Sodium Lvl 140 135 - 145 03/26 Normal Medical Center CHEMISTRY Creatinine 1.3 0.5 - 1.4 03/26 Normal [facility] Lvl /2011 Medical Center CHEMISTRY BUN 24 7 - 22 03/26 [facility] CHEMISTRY Glucose Lvl 137 70 - 99 03/26 HI <sup>5</sup>Int erpretive Data: [facility] Adult reference Center range values reflect the clinical guidelines of the [place] [employer]. CHEMISTRY Calcium Lvl 8.0 8.5 - 10.5 03/26 [facility] Center CHEMISTRY CO2 24 24 - 32 03/26 [facility] Center CHEMISTRY Chloride Lvl 106 95 - 109 03/26 [facility] Center CHEMISTRY Potassium 4.5 3.5 - 5.1 03/26 [facility] Center CHEMISTRY Magnesium 2.2 1.8 - 2.4 03/26 [facility] Center CHEMISTRY Phosphorus 3.9 2.5 - 4.5 03/26 [facility] Center CHEMISTRY Myoglobin 670 25 - 72 03/26 [facility] Medical Center CHEMISTRY CHD Risk 2.43 4.00 - 03/26 [facility] 7.30 Medical Center CHEMISTRY LDL 58 0 - 129 03/26 [facility] Center CHEMISTRY HDL 46 >=35 03/26 [facility] [place] CHEMISTRY Chol 112 120 - 200 03/26 [facility] Center CHEMISTRY Trig 41 0 - 200 03/26 [facility] Center CHEMISTRY Hgb A1C 6.4 03/26 NA [...] HEMATOLOGY MPV 7.9 7.4 - 10.4 03/26 [facility] Center HEMATOLOGY Platelet 136 133 - 450 03/26 [facility] Center HEMATOLOGY RDW 14.5 11.5 - 03/26 [facility] [place] 14.5 Medical Center HEMATOLOGY MCHC 33.5 32.0 - 03/26 [facility] [place] 36.0 Medical Center HEMATOLOGY MCH 31.5 27.0 - 03/26 [facility] [place] 31. Medical Center HEMATOLOGY MCV 94.1 80.0 - 03/26 [facility] [place] 94.0 /2011 Medical Center HEMATOLOGY Hct 39.1 42.0 - 03/26 [facility] [place] 54.0 /2011 Medical Center HEMATOLOGY Hgb 13.1 14.0 - 03/26 [facility] 18.0 /2011 [facility] HEMATOLOGY RBC 4.16 4.70 - 03/26 [facility] [place] 6.10 /2011 [facility] HEMATOLOGY WBC 7.4 3.7 - 10.4 03/26 Normal [facility] HEMATOLOGY Eosinophils 0.0 0.0 - 0.5 03/26 Normal [place] # /2011 [facility] HEMATOLOGY Basophils # 0.0 0.0 - 0.2 03/26 Normal [facility] HEMATOLOGY Eosinophils 0.0 0.0 - 4.0 03/26 [facility] HEMATOLOGY Segs-Bands # 5.6 1.5 - 8.1 03/26 Normal [facility] HEMATOLOGY Basophils 0.3 0.0 - 1.0 03/26 [facility] HEMATOLOGY Monocytes # 0.9 0.0 - 0.8 03/26 [facility] HEMATOLOGY Lymphocytes 0.9 1.0 - 5.5 03/26 LOW [facility] # /2011 [facility] HEMATOLOGY Segs 75.8 45.0 - 03/26 [facility] [place] 75.0 [facility] HEMATOLOGY Monocytes 12.1 2.0 - 12.0 03/26 [facility] HEMATOLOGY Lymphocytes 11.8 20.0 - 03/26 [facility] 40.0 /2011 [facility] CHEMISTRY Trig 40 0 - 200 03/26 Normal [facility] CHEMISTRY HDL 44 >=35 03/26 Normal [facility] CHEMISTRY Chol 111 120 - 200 03/26 [facility] CHEMISTRY LDL 59 0 - 129 03/26 Normal [facility] CHEMISTRY CHD Risk 2.52 4.00 - 03/26 [facility] 7.30 [facility] CHEMISTRY Hgb A1C 6.7 03/26 NA [...] Lymphocytes 0.4 1.0 - 5.5 03/26 LOW [facility] # /2012 [facility] HEMATOLOGY Monocytes # 0.2 0.0 - 0.8 03/26 Normal [facility] HEMATOLOGY Basophils 0.0 0.0 - 1.0 03/26 Normal [facility] HEMATOLOGY Segs-Bands # 8.3 1.5 - 8.1 03/26 [place] [facility] HEMATOLOGY Eosinophils 0.0 0.0 - 4.0 03/26 Normal [facility] HEMATOLOGY Eosinophils 0.0 0.0 - 0.5 03/26 Normal [facility] HEMATOLOGY Lymphocytes 4.8 20.0 - 03/26 LOW [place] 40.0 [facility] HEMATOLOGY Monocytes 2.8 2.0 - 12.0 03/26 Normal [facility] HEMATOLOGY Basophils # 0.0 0.0 - 0.2 03/26 Normal [facility] HEMATOLOGY Segs 92.4 45.0 - 03/26 [facility] [place] 75.0 [facility] Pathology Reports No Data Provided for This Section Diagnostic Reports No Data Provided for This Section Consultation Notes No Data Provided for This Section Discharge Summaries No Data Provided for This Section History and Physicals No Data Provided for This Section Vital Signs Vital Sign Value Date Comments Source Diastolic (mm Hg) 63 03/29/2012 [facility] Systolic (mm Hg) 103 03/29/2012 [facility] Respitory Rate 26 03/29/2012 [facility] Diastolic (mm Hg) 63 03/29/2012 [facility] Respitory Rate 15 03/29/2012 [facility] Systolic (mm Hg) 113 03/29/2012 [facility] Respitory Rate 48 03/29/2012 [facility] Temperature Oral (F) 98.3 F 03/29/2012 [facility] Systolic (mm Hg) 110 03/29/2012 [facility] Diastolic (mm Hg) 64 03/29/2012 [facility] Temperature Oral (F) 99.2 F 03/29/2012 [facility] Temperature Oral (F) 99.4 F 03/29/2012 [facility] Height 175.26 cm 03/26/2012 [facility] Weight 73.400 03/26/2012 [facility] Encounters Location Location Encounter Encounter Reason Attending ADM DC Status Source Details Type Number For Provider Date Date Visit [facility] Inpatient [id number] [facility] 03/25 03/29 Discharge [place] [facility] /2011 [facility] [id number] [facility] [place] Procedures No Data Provided for This Section [...]
--- OUTSIDE RECORDS SUMMARY | 2019-06-28 10:47 | XMS REPORT | CCD ---
:1940 Author Organization [facility] Care Team Providers Name Role Phone Renee Wesley Consulting Provider Nikolas Isaac Louis Referring Provider [phone] Allergies, Adverse Reactions, Alerts Substance Reaction Status NKDA Active Problem List Condition Effective Dates Status Chest pain < 03/29/2012 Resolved MRSA1, 2 Active Myocardial infarction Active - [id number] added by Discern Expert. Medications Medication Instructions [...] 04/24/12 21:00:00 Fleet Enema 133 ml, Route: [place], Drug 03/28/2012 03/28/2012 Completed Form: MARINA, ONCE, [...] range values reflect the clinical guidelinesof the [place] [employer].4Interpretive Data: Adult reference range values reflect the clinical guidelinesof the [place] [employer].5Interpretive Data: Adult reference range values reflect the clinical guidelinesof the [place] [employer].6Result Comment: Critical Result(s) called to [...] lower10.0 240 Poor Control, take action to [id number] Data: HbA1C% eAG(mg/dL) Interpretation 6.0 126Very good [...] Data: Heparin Therapeutic Range: 57 - 92 [id number] Data: Heparin Therapeutic Range: 57 - 92 [id number] Data: Heparin Therapeutic Range: 57 - 92 Seconds
--- OUTSIDE RECORDS SUMMARY | 2019-06-28 10:47 | XMS REPORT ---
:1940 Author Organization [facility] Address [address] [place] [address] Care Team Providers Name Role Phone Unavailable [...] FINAL REPORT PATIENT ID: DIAGNOSTIC WITHOUT CONTRAST [id number] HISTORY : V58.61 Technique: Multiple axial images [...] see above for details. Signed: Evelyn Fajardo [facility] Verified Date/Time: 02/22/2018 12:39:49 Reading Location: [address] Reading Room
--- OUTSIDE RECORDS SUMMARY | 2019-06-28 10:47 | XMS REPORT | CCD ---
:1940 Author Organization [facility] Outpatient Imaging [facility] Team Providers Name Role Phone Javier Huff III Consulting Provider Allergies, Adverse Reactions, Alerts Substance Reaction Status NKDA Active Problem List Condition Effective Dates Status Chest pain < 03/29/2012 Resolved MRSA1, 2 Active Myocardial infarction Active - [id number] added by Discern Expert.
--- NOTE | 2019-06-28 12:53 | ENDO RPT ---
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 TOPICAL ANESTHETIC: none CONSENT: The patient understands the risks and benefits of the procedure and understands that these risks include, but are not limited to: sedation, allergic reaction, infection, perforation and/or bleeding. Alternative means of evaluation and treatment include, among others: physical exam, x-rays, and/or surgical intervention. The patient elects to proceed with this endoscopic procedure. DESCRIPTION OF PROCEDURE: During intra-op preparation period all mechanical medical equipment was checked for proper function. Hand hygiene and appropriate measures for infection prevention was taken. Procedure, possible complications, and alternatives including but not limited to the possibility of bleeding, perforation, tear, infection, sepsis, need for surgery, need for blood transfusion, and anesthesia related complications were explained to the patient. After the risks, benefits and alternatives of the procedure were thoroughly explained, Informed consent was verified, confirmed and timeout was successfully executed by the treatment team. The patient was placed in the left lateral position. The patient was anesthetized with topical anesthesia. Through the anesthetized oropharyngeal area, the scope was passed without any difficulty. The EG-[id number] ([id number]) endoscope was introduced through the mouth and advanced to the third portion of the duodenum. Retroflexed views revealed a small hiatal hernia. The gastroscope was then slowly withdrawn and removed. LA Class B esophagitis was found in the lower esophagus. A small hiatal hernia was found Mild gastritis was found in the body of the stomach. Multiple biopsies were obtained and sent to pathology. Mild gastritis was found in the antrum. Multiple biopsies were obtained and sent to pathology. ADVERSE EVENTS: There were no complications. IMPRESSIONS: 1. LA Class B esophagitis in the lower esophagus 2. A small hiatal hernia 3. Mild patchy hemorrhagic gastritis with few specks/streaks of dark heme in the body of the stomach, s/p biopsies 4. Mild gastritis in the antrum, s/p biopsies RECOMMENDATIONS: 1. await biopsy results 2. acid suppression therapy REPEAT EXAM: Garry Tom Dr eSigned: Garry Tom Dr 06/28/2019 12:53 PM cc: Alex Del Valle CPT CODES: ICD9 CODES: PATIENT NAME: Mango Arriaza MR#: [id number]
--- NOTE | 2019-06-28 13:05 | ENDO RPT ---
[address], [address] COLONOSCOPY PROCEDURE REPORT EXAM DATE: 06/28/2019 PATIENT NAME: Mango Arriaza MR #: [id number] BIRTHDATE: 1940 ATTENDING: Garry Tom Dr STATUS: outpatient [employer] MECHANIC: Samantha Cain RN, Annette Suresh, and Elsi Glodberg RN INDICATIONS: The patient is a 78 yr old Male here for a colonoscopy due to melenic bleeding, abdominal pain, family history of colon cancer, and weight loss PROCEDURE PERFORMED: Colonoscopy with biopsy - cold polypectomy MEDICATIONS: Per Anesthesia. ESTIMATED BLOOD LOSS: None CONSENT: The patient understands the risks and benefits of the procedure and understands that these risks include, but are not limited to: sedation, allergic reaction, infection, perforation and/or bleeding. Alternative means of evaluation and treatment include, among others: physical exam, x-rays, and/or surgical intervention. The patient elects to proceed with this endoscopic procedure. DESCRIPTION OF PROCEDURE: During intra-op preparation period all mechanical medical equipment was checked for proper function. Hand hygiene and appropriate measures for infection prevention was taken. Procedure, possible complications, alternatives including, but not limited to possibility of bleeding, perforation, tear, infection, sepsis, need for surgery, need for blood transfusion, were explained to the patient. After the risks, benefits and alternatives of the procedure were thoroughly explained, Informed consent was verified, confirmed and timeout was successfully executed by the treatment team. The patient was placed in the left lateral position. A digital rectal exam was performed and revealed external hemorrhoids. After appropriate level of anesthesia, the scope was passed. The EC-[id number] ([id number]) endoscope was introduced through the anus and advanced to the terminal ileum which was intubated for a short distance. The quality of the prep was good. The instrument was then slowly withdrawn as the colon was fully examined. Scope withdrawal time was 8 minutes. COLON FINDINGS: Three smooth sessile polyps ranging between 3-5mm in size were found in the ascending colon. A polypectomy was performed with cold forceps. A smooth polyp measuring 3 mm in size was found in the descending colon. A polypectomy was performed with cold forceps. Moderate sized internal and external hemorrhoids were found. Retroflexed views revealed medium hemorrhoids. The scope was then completely withdrawn from the patient and the procedure terminated. ADVERSE EVENTS: There were no complications. IMPRESSIONS: 1. Three 3-5 mm sessile polyps in the ascending colon; polypectomy was performed with cold forceps 2. 3 mm sessile polyp in the descending colon; polypectomy was performed with cold forceps 3. Moderate sized internal and external hemorrhoids 4. Intubation to terminal ileum RECOMMENDATIONS: 1. await biopsy results 2. avoid NSAIDS for 2 weeks 3. Small Bowel Follow Through 4. pillcam / capsule endoscopy RECALL: Return in 5 year(s) for Colonoscopy. Garry Tom Dr eSigned: Garry Tom Dr 06/28/2019 1:05 PM cc: Alex Del Valle CPT CODES: ICD9 CODES: 1. 455.5 External hemorrhoids with other complication 2. 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
== END ==
LOC: OR 10:42
PROVIDERS: ATTEND Internal Medicine Gastroenterology
PROC: 0DB68ZX Excision of Stomach, Via Natural or Artificial Opening Endoscopic, Diagnostic (ICD-10-PCS; 2019-06-28)
PROC: 0DBK8ZX Excision of Ascending Colon, Via Natural or Artificial Opening Endoscopic, Diagnostic (ICD-10-PCS; principal; 2019-06-28 12:00)
PROC: 0DBM8ZX Excision of Descending Colon, Via Natural or Artificial Opening Endoscopic, Diagnostic (ICD-10-PCS; 2019-06-28 12:00)
DX: K29.51 Unspecified chronic gastritis with bleeding (principal); D12.2 Benign neoplasm of ascending colon; D12.4 Benign neoplasm of descending colon; K21.0 Gastro-esophageal reflux disease with esophagitis; K44.9 Diaphragmatic hernia without obstruction or gangrene; R63.4 Abnormal weight loss; K64.8 Other hemorrhoids; K64.4 Residual hemorrhoidal skin tags; I11.0 Hypertensive heart disease with heart failure; I50.9 Heart failure, unspecified; I25.10 Atherosclerotic heart disease of native coronary artery without angina pectoris; F41.9 Anxiety disorder, unspecified; I25.2 Old myocardial infarction; Z95.810 Presence of automatic (implantable) cardiac defibrillator; Z85.46 Personal history of malignant neoplasm of prostate; Z86.73 Personal history of transient ischemic attack (TIA), and cerebral infarction without residual deficits; Z87.891 Personal history of nicotine dependence; Z80.0 Family history of malignant neoplasm of digestive organs
CPT/HCPCS: 88312; 88305; 45380; 43239; J2704

== ENCOUNTER 2019-07-27 07:41 | Day surgery (SDC) | payer OTHER ==
[2019-07-26 15:47] LABS: Basophils % 0.4 % (0-1.3); Hematocrit 46.7 % (39.6-49.0); Lymphocytes % 21.7 % (15.3-44.8); MPV 8.7 fL (7.6-11.3); RBC Red Blood Cell Count 4.65 M/uL (4.33-5.43)
[2019-07-26 15:58] LABS: Potassium 4.4 mmol/L (3.5-5.1)
[2019-07-27] MEDS ORDERED: CEFAZOLIN/SWI 1gm 1 GM/10 ML SYR ONE (08:05)
[2019-07-27] MEDS ORDERED: Ringers Lactate 1,000 ML IV ONE (08:05)
[2019-07-27] MEDS ORDERED: PROPOFOL 200 MG/20 ML VIAL IV ONE (09:29)
[2019-07-27] MEDS ORDERED: FENTANYL CITR 100 MCG/2 ML ONE (09:29)
[2019-07-27] MEDS ORDERED: LIDOCAINE 1% MPF 5 ML VIAL ONE (09:29)
[2019-07-27] MEDS ORDERED: MIDAZOLAM HCL 2 MG/2 ML INJ ONE (09:29)
[2019-07-27] MEDS: BUPIVACAINE 0.5% PF 10 ML VIAL ONE ×2 (09:29→10:02)
[2019-07-27] MEDS ORDERED: Phenylephrine HCl 10 MG/ML 1 ML VIAL ONE (09:46)
[2019-07-27] MEDS ORDERED: NS 0.9% VIAL 10 ML ONE (09:46)
[2019-07-27] MEDS ORDERED: ONDANSETRON 4 MG/2 ML VIAL ONE (10:19)
[2019-07-27 10:57] VITALS: TEMP 97.5
--- NOTE | 2019-07-27 11:05 | OP ---
Date of Procedure: 07/27/2019 Surgeon: Herrera Pedroza MD User Experience Team Lead: JOSE Delgado. Preoperative Diagnosis: Left inguinal hernia. Postoperative Diagnosis: Left inguinal hernia. Procedure: Repair of left inguinal hernia. Estimated Blood Loss: Minimal. Specimen: None. Findings: As above. Anesthesia: General. Complications: None. Patient tolerated the procedure in stable condition and taken to Recovery in good general condition. Procedure In Detail: The patient was brought to the OR and placed in supine position and general ane sthesia begun. Patient was prepped and draped in usual sterile fashion. Marcaine 0.5% was infiltrat ed locally. A 15-blade was used to make an oblique incision between the pubic tubercle and the anter ior iliac spine. Subcutaneous tissue divided and the Ludy fascia identified and divided. Aponeuro sis identified and there was a blue suture present which does not give a history of near the external ring and patient does not give a history of previous surgery. 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 The aponeurosis was opened, it was very thickened and hernia defects were clearly identified right below the aponeurosis. There was a preper itoneal fat which was seen on the CAT scan, described accurately on the CAT scan which was reduced ba ck into the peritoneal cavity and the cord structures were very scarred in, so I felt it would do mor e damage to try to free that up. As I had already identified the source of the hernia defect and the preperitoneal fat was reduced back into the peritoneal cavity. The Marlex mesh plug was placed, com pletely covered in that area, secured with the VersaTack stapler. An onlay mesh was placed over that and secured medially to the pubic tubercle, superior to the conjoined tendon and inferior to the she lving edge, and proximally to each other and then the aponeurosis was closed with running 2-0 Prolene . Wound irrigated and bleeding controlled with cautery. Then, 3-0 chromic was used for Ludy's fasc ia. Staple was used to close the skin. Sterile dressing was applied. The patient was awakened and taken to Recovery in good general condition. Discharge Note: Patient will go to Day Surgery, then home when stable. Disposition: Home. Condition: Stable. Discharge Instructions: Resume home medications and diet. Activity as tolerated. No heavy lifting. Remove outer dressing in 2 days. Shower. Keep wound clean and dry. Follow up in my office in 1 w [facility] [place]. Call for appointment. Tylenol No. 3 one tablet p.o. q.4 p.r.n. pain. Scrotal support and ice pack as ordered. MEGHANA/NAVEED Voice ID: [id number] Report ID: [id number]
[2019-07-27] MEDS ORDERED: HYDROCODONE/APAP 7.5/325 MG TAB ONE (11:26)
[2019-07-27 13:41] VITALS: O2SAT 97
[2019-07-27 13:42] VITALS: BP 110/65
== END 2019-07-27 12:08 | disposition home or self-care (01) ==
LOC: OR 07:41
PROVIDERS: ATTEND Surgery
PROC: 0YU60JZ Supplement Left Inguinal Region with Synthetic Substitute, Open Approach (ICD-10-PCS; principal; 2019-07-27 09:30)
DX: K40.90 Unilateral inguinal hernia, without obstruction or gangrene, not specified as recurrent (principal); I11.0 Hypertensive heart disease with heart failure; I50.9 Heart failure, unspecified; I48.91 Unspecified atrial fibrillation; I25.10 Atherosclerotic heart disease of native coronary artery without angina pectoris; I25.2 Old myocardial infarction; K21.9 Gastro-esophageal reflux disease without esophagitis; Z95.810 Presence of automatic (implantable) cardiac defibrillator; Z85.46 Personal history of malignant neoplasm of prostate; Z86.73 Personal history of transient ischemic attack (TIA), and cerebral infarction without residual deficits; Z87.891 Personal history of nicotine dependence
CPT/HCPCS: 85025; 80048; 36415; 49505; J2704; J2370; J3010; J0690; J2405; J2250

== ENCOUNTER 2021-03-20 08:04 | Emergency (ER) | payer OTHER ==
--- OUTSIDE RECORDS SUMMARY | 2021-03-20 08:10 | XMS REPORT | Continuity of Care Document ---
:1940 Author Organization [facility] t Address [address] [place] [address] Care Team Providers Name Role Phone Provider Primary Care Physician Unavailable Kain Attending Clinician [phone] Jeovanny Mendez Attending Clinician FERNIE CHAMBERLAIN Attending Clinician Unavailable ROSI Attending Clinician Unavailable ALEX Attending Clinician Unavailable Jeovanny Mendez Admitting Clinician Problems Condition Condition Condition Status Onset Resolution Last Treating Co mments Source Name Details Category Date Date Treatment Clinician Date ACUTE Diagnosis Active 2020-02-25 Mem oria CHEST PAIN 4-23 19:29:00 l ACUTE 00:00: [place] CHEST PAIN 00 Active 02/21/2020 [facility] SOB/CHEST Diagnosis Active 2020-02-21 Memoria PAIN 4-23 10:57:00 l 00:00: [place] SOB/CHEST 00 PAIN Active 02/21/2020 [facility] CAD CAD Disease Active [facility] (coronary (coronary 8-13 Meth alec artery artery 00:00: st disease) disease) 00 Acute Acute Disease Active [facility] systolic systolic 8-11 Method i congestive congestive 00:00: st heart heart 00 failure failure Acute Acute Disease Active [facility] chest pain chest pain 8-11 Me thodi 00:00: st 00 UNK Diagnosis Active 2019-07-28 Mem oria 7-16 19:17:00 l UNK 00:00: [place] 00 Active 05/15/2019 [facility] Chronic Chronic Disease Active 2015-10 [facility] coronary coronary 1-15 Method i artery artery 00:00: st disease disease 00 Fatigue Fatigue Disease Active 2015-10 [facility] 1-15 Methodi 00:00: st Atrial Atrial Disease Active 2015-10 [facility] flutter flutter 1-15 Methodi 00:00: st 00 Congestive Congestive Disease [facility] heart 1-15 Methodi failure failure 00:00: st 00 Atrial Atrial Disease Active [facility] fibrillati fibrillati 7-12 Me thodi on on 00:00: st 00 Left Left Disease Active [facility] inguinal inguinal 9-11 [facility] - hernia hernia 00:00: Medical 00 [place] Endocardit Endocardit Disease Active Overview : [facility] is is 5-13 Probable [facility] - 00:00: vegetatio Medical 00 n at Center right atrial lead of the pacemaker per ECHO 4.15.2013 , on ANCEF IV q 8 hours for 6 weeks Bacteremia Bacteremia Disease Active [facility] 4-15 [facility] - 00:00: Medical 00 [place] Cellulitis Cellulitis Disease Active [facility] of arm, of arm, 4-14 [facility] - left left 00:00: Medical 00 [place] TIA TIA Disease Active [facility] (transient (transient 4-11 Elsa kes - ischemic ischemic 00:00: Medica l attack) attack) 00 Center Ischemic Ischemic Disease Active 2012-10 [facility] cardiomyop cardiomyop 2-05 [facility] k[facility] - athy athy 00:00: Medical 00 Center History of History of Disease Active 2012-[address] BPH, h/o BPH, h/o 0-03 [facility] - TURP and TURP and 00:00: Medica l bladder bladder 00 Center stimulator stimulator CAD, CAD, Disease Active 2012-[address] [facility] multiple multiple 0-03 [facility] - vessel vessel 00:00: Medical 00 [place] Dilated Dilated Disease Active 2012-[address] cardiomyop cardiomyop 0-03 Elsa kes - athy, athy, 00:00: Medical w/LVEF w/LVEF 00 Center 35-45%, 35-45%, mild-mod mild-mod MR, mod MR, mod TR, RSVP TR, RSVP 40-50 mmHg 40-50 mmHg per Echo per Echo 09/28/2012 09/28/2012 History of History of Disease Active 2012-[address] atrial atrial 0-03 [facility] - fibrillati fibrillati 00:00: Me dical on on 00 Center History of History of Disease Active 2012-[address] sick sinus sick sinus 0-03 [facility] - syndrome syndrome 00:00: Medica l 00 Center History of History of Disease Active 2012-[address] ventricula ventricula 0-03 [facility] - r r 00:00: Medical tachycardi tachycardi 00 Ce nter a, s/p a, s/p AICD in AICD in 2007 2007 NC/STEMI Diagnosis Active 2012-03-29 M emoria 03-25 12:55:00 l NC/STEMI 00:00: Casimiro n 00 Active 03/25/2012 [facility] Chronic Chronic Disease Active [facility] anticoagul anticoagul [facility] - ion [facility] Hyperlipid Hyperlipid Disease Active [facility] emia emia [facility] History of History of Problem Resolve Univers Follicular Follicular d it y of cyst of cyst of [place] skin and skin and Physic i subcutaneo subcutaneo an s us tissue us tissue History of History of Problem Resolve Univers Arthritis Arthritis d ity of [place] Physici ans History of History of Problem Resolve Univers Echo R Echo R d ity of [facility] [place] Pacemaker Pacemaker Phys ici Lead Lead ans History of History of Problem Resolve Univers essential essential d ity of hypertens[place]ens[place] Physici ans Personal Personal Problem Resolve Univ ers history of history of d it y of asthma asthma [place] Physici ans MRSA Problem Active 2012-07-02 Memor ia 09:15:21 l MRSA [place] Active Problem 07/02/2012 - [id number] troy added by Discern Expert. 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 [facility] [place] Myocardial Problem Active 2020-02-23 M emoria infarction 21:50:56 l (disorder) Casimiro n Myocardial infarction (disorder) Active Problem 02/23/2020 [facility] AMI Diagnosis Active 2012-03-29 Mem oria NOS-INITIA 12:55:00 l L EPISODE AMI [place] NOS-INITIA L EPISODE Active [facility] CHEST Diagnosis Active 2020-02-25 Mem oria PAIN, 19:29:00 l UNSPECIFIE CHEST Lianne nn D PAIN, UNSPECIFIE D Active [facility] Chest pain Problem Resolve 2012-07-02 Memoria d 09:15:21 l Chest [place] pain Resolved Problem 07/02/2012 [facility], [facility] [place] Basal cell Basal cell Problem Active U nivers carcinoma carcinoma ity of of skin of skin [place] Physici ans Inflamed Inflamed Problem Active Unive rs epidermoid epidermoid it y of cyst of cyst of [place] skin skin Physici ans History of History of Problem Active U nivers basal cell basal cell it y of carcinoma carcinoma [place] Phys[place] Seborrheic Seborrheic Problem Active U nivers keratoses keratoses ity of [place] Physici ans Cutaneous Cutaneous Problem Active Uni vers abscess of abscess of it y of right right [place] axilla axilla Physici ans Neoplasm Neoplasm Problem Active Unive rs of of [place] of uncertain uncertain [place] behavior behavior Physic i of skin of skin ans 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 s s [place] Physici ans Acute Acute Problem Active Univers lumbar lumbar ity of radiculopa radiculopa [place] thy thy Physici ans Chest pain Problem Resolve 2020-02-23 2020-02-23 Memoria (finding) d 03-29 21:50:56 21:50:56 l Chest 00:00: [place] pain 00 (finding) Resolved 03/29/2012 Problem 02/23/2020 [facility] Allergies, Adverse Reactions, Alerts Allergy Allergy Status Severity Reaction(s) Onset Inactive Treating Comm ents Source Name Type Date Date Clinician No Known No Known Active Memori a Medicati Medicati l on on Terrance Allergie Allergie s s Family History Family Member Diagnosis Comments Start Date Stop Date Source Natural brother Cancer [facility] Maternal aunt Heart disease [facility] Maternal grandfather Alcohol abuse [facility] Natural mother Alcohol abuse [facility] Natural mother Liver disease [facility] Social History Social Habit Start Date Stop Date Quantity Comments Source Tobacco use and 2019-06-15 2019-06-15 Never used [facility] exposure 00:00:00 00:00:00 [employer] Alcohol intake 2019-06-15 2019-06-15 Current [facility] 00:00:00 00:00:00 non-drinker of [employer] alcohol (finding) Tobacco Comment 2016-05-11 2016-05-11 qiut 1978 [facility] 00:00:00 00:00:00 [employer] [facility] Cigarettes smoked 2014-10-14 2014-10-[address] [facility] - current (pack per 00:00:00 00:00:00 [facility] day) - Reported History of tobacco 1983-08-09 User of smokeless RAJENDRA Rogers - use 00:00:00 tobacco [facility] Sex Assigned At [birth year] [facility] 00:00:00 00:00:00 [employer] [facility] Smoking Status Start Date Stop Date Source Social History [facility] Former smoker 2019-06-15 00:00:00 2019-06-15 00:00:00 [facility] [facility] Medications Ordered Filled Start Stop Current Ordering Indication Dosage Frequency Signature Comments Components Source Medication Medication Date Date Medication? Clinician (SIG) Name Name Saline 2019-0 No Notes: Memoria Flush 0.9% 02-21 Same as: l 02:00: BD [place] 00 Posiflush Sterile Enoxaparin 2019-0 No 40 mg, Memor ia 02-20 Route: l 22:00: SUB-Q, [place] Drug form: INJ, [id number], Dosing Weight 70.3, kg, Start date: 02/21/20 17:00:00 CDT, Duration: 30 day, Stop date: 03/21/20 17:00:00 CDT Nitroglycer 2019-0 No Notes: Ronny dalia in 02-20 (Same l 21:04: as:Nitroqu ick, Nitrostat) "Do Not Crush" Sublingual tablet Acetaminoph 2019-0 No Notes: Do M emoria en 02-20 not exceed l 21:04: 4 gm/day. (Same as: Tylenol) Saline 2020-0 No Notes: Memoria Flush 0.9% 4-23 Same as: l 21:04: BD Posiflush Sterile Saline No Notes: Memoria Flush 0.9% 4-23 Same as: l 15:32: BD Posiflush Sterile Aspirin No 324 mg, Memoria 4-23 Route: PO, l 15:32: ONCE, Dosing Weight 70.3, kg, Priority: STAT, Start date: 02/21/20 10:32:00 CDT, Stop date: 02/21/20 10:32:00 CDT LORAZepam Yes 3mg QD Take 3 mg Micheal ston (ATIVAN) 2 8-15 by mouth Metho di MG tablet 11:57: nightly. st 05 Sometimes takes 4 mg warfarin Yes 6mg QD Take 6 mg [place] (COUMADIN) 8-15 by mouth Metho di 6 MG tablet 11:57: daily. st 05 pantoprazol Yes 40mg QD Take 40 mg [place] e 8-15 by mouth Methodi (PROTONIX) 11:57: daily. st 40 MG EC 05 tablet furosemide Yes 40mg QD Take 40 mg [place] (LASIX) 40 8-15 by mouth Metho di mg tablet 11:57: daily. st 05 traMADol traMADol Yes ARMIN TAKE 1 U nivers HCl - 50 MG HCl - 50 MG 6-27 LI-YANNA TABLET ity of Oral Tablet Oral Tablet 00:00: CINTIA M.D. EVERY 4 T O [place] 00 6 HOURS Physici NEEDED FOR ans PAIN. methylPREDN methylPREDN Yes ARMIN TAKE Univers ISolone 4 ISolone 4 6-27 LI-YANNA DIRECTED ity of MG Oral MG Oral 00:00: [place]. [place] Tablet Tablet 00 Physici Therapy Therapy ans Pack Pack Amoxicillin Amoxicillin Yes HARINA VANIA Q12H TAKE 1 Univers 875 MG Oral 875 MG Oral 6-18 M.D. TABLET ity of Tablet Tablet 00:00: EVERY 12 [place] 00 HOURS Physici DAILY. ans Cephalexin Cephalexin Yes SAUMYA Q0.25D TAKE 1 Univers 500 MG Oral 500 MG Oral 6-06 JOHNSON CAPSULE 4 ity of Capsule Capsule 00:00: M.D. times [place] 00 daily for Physici 5 days ans furosemide 2013-10 Yes Endocarditi 40mg QD Take [address] (LASIX) 40 2-15 s by mouth [facility]ukes - MG tablet 17:37: daily. Medica l 37 Center pantoprazol 2013-10 Yes 40mg QD Take [address] [facility] e 2-15 by mouth [facility] - (PROTONIX) 14:46: daily. Medic al 40 MG 43 Center tablet LORazepam 2013-10 Yes 2mg Take 2-[address] (ATIVAN) 1 2-15 mg by [facility]ukes - MG tablet 14:46: mouth Medical 43 every Center night as needed. lisinopril 2013-10 Yes 5mg Q.5D Take [address] (PRINIVIL,Z 2-15 by mouth 2 [facility] - ESTRIL) 5 14:46: (two) Medical MG tablet 43 times Center daily. carvedilol 2013-10 Yes 6.25mg Take 6.[address] (COREG) 2-15 mg by [facility]ukes - 6.25 MG 14:46: mouth 2 Medical tablet 43 (two) Center times daily with breakfast and dinner. simvastatin 2013-10 Yes 40mg QD Take [address] (ZOCOR) 40 2-15 by mouth [facility]ukes - MG tablet 14:46: nightly. Medi roe 43 Center warfarin 2013-10 Yes Endocarditi 1mg QD Take [address] (COUMADIN) 2-15 s tablet (1 Luke s - 1 MG tablet 00:00: mg total) M edical 00 by mouth Center daily. With 5 mg tablet for total dose 6 mg daily warfarin Yes 5mg QD [address] (COUMADIN) 5-21 daily. [facility]ukes - 5 MG tablet 00:00: With 1 mg M edical 00 tablet for Center total dose 6 mg daily aspirin 81 Yes 81mg QD Take 1 [facility] t mg Tab 5-12 tablet (81 [facility] - 00:00: mg total) Medical 00 by mouth Center daily. Nitrostat Yes Chiara L 0.4 mg, 1 Memoria 0.4 mg 5-30 Gonzalez tab, SL, l sublingual 13:46: Q5Min, Lianne nn tablet 54 PRN, 100 tab, Chest Pain, Substituti on Allowed carvedilol Yes Chiara L 3.125 mg, Memoria 3.125 mg 5-30 Gonzalez 1 tab, PO, l oral tablet 13:46: Q12H, 60 He rmann 42 tab, 3, 3, Substituti on Allowed, TAB atorvastati Yes Chiara L 80 mg, 1 Memoria n 80 mg 5-30 Gonzalez tab, PO, l oral tablet 13:46: Bedtime, He rmann 37 30 tab, 3, 3, Substituti on Allowed, TAB aspirin 325 Yes Chiara L 325 mg, 1 Memoria mg tablet, 5-30 Gonzalez tab, PO, l enteric 13:46: Daily, 30 Lianne nn coated 32 tab, 3, 3, Substituti on Allowed, ECTAB lisinopril Yes Chiara L 2.5 mg, M emoria 5 mg oral 5-30 Gonzalez 0.5 tab, l tablet 13:46: PO, Q12H, Casimiro n 20 30 tab, 3, 3, Substituti on Allowed, TAB Fleet Enema No Jamel 133 ml, Mem oria - Rishabh Route: [place], l 22:30: Trey Drug Form: Lianne nn 00 MARINA, ONCE, Start date: 03/28/12 17:30:00, Stop date: 03/28/12 17:30:00 lactulose No Jamel 20 gm, 30 Mem oria 5-29 Rishabh mL, Route: l 15:00: Trey PO, Drug Form: SYRP, Q2H, times 2 doses, Start date: 03/28/12 10:00:00, Duration: 2 doses or times, Stop date: 03/28/12 12:00:00 MiraLax No Isidro 17 gm, 1 Ronny dalia - Partha pkt, l 23:09: David Route: PO, Her telles Drug form: PWDR, ONCE, Start date: 03/27/12 18:09:00, Duration: 1 doses or times, Stop date: 03/27/12 18:09:00 isosorbide No Salim F 10 mg, 1 Memoria dinitrate -28 Dabaghi tab, l 14:00: Route: PO, [place] 00 Drug form: TAB, BID, Start date: 03/27/12 9:00:00, Duration: 30 day, Stop date: 04/25/12 17:00:00 ondansetron 2011-0 No Danai 4 mg, 2 Me moria 5-27 [place] mL, Route: l 23:45: IV, Drug Terrance 00 form: INJ, Q6H, PRN Nausea, Start date: 03/26/12 18:45:00, Duration: 30 day, Stop date: 04/25/12 18:44:00 Protonix 2011- No Skyla 40 mg, 1 Mem oria 5-27 John tab, l 21:30: Route: PO, [place] Drug form: ECTAB, Before Dinner, Start date: 03/26/12 16:30:00, Duration: 30 day, Stop date: 04/24/12 16:30:00 clopidogrel 2011-0 No Roni 75 mg, 1 Memoria 5-27 Griffin tab, l 14:00: Azucena Route: PO, Her telles Drug form: TAB, Daily, Start date: 03/26/12 9:00:00, Duration: 30 day, Stop date: 04/24/12 9:00:00 nitroglycer No Salim F 0.5 inch, Memoria in 2% -27 Dabaghi Route: l topical 05:00: TOP, Drug Lianne nn ointment 00 Form: OINT, Q6H, Start date: 03/26/12 0:00:00, Duration: 30 day, Stop date: 04/24/12 18:00:00 metoprolol 2011-0 No 100 mg, 1 Me moria 100 mg oral 5-27 tab, PO, l tablet 03:57: Daily, 180 Lianne nn 50 tab, Substituti on Allowed, TAB Vitamin D Yes 800 Memoria 5-27 IntlUnit, l 03:57: Substituti [place] 39 on Allowed calcium 2011- Yes 1,200 mg, Memor ia carbonate 5-27 Substituti l 03:57: on Allowed [place] 28 omeprazole 2011- Yes 40 mg, 1 Mem oria 40 mg oral 5-27 cap, PO, l delayed 03:57: Daily, 90 Lianne nn release 12 cap, capsule Substituti on Allowed, DRC lisinopril 0 No 5 mg, 1 Ronny dalia 5 mg oral 5-27 tab, PO, l tablet 03:56: Daily, 90 Casimiro n 57 tab, Substituti on Allowed, TAB simvastatin 2011-0 No unknown, Me moria 5-27 PO, Daily, l 03:56: 30 tab, Terrance 21 Substituti on Allowed Ativan 2 mg Yes 2-3 tab, Me moria oral tablet 5-27 PO, l 03:55: Bedtime, Terrance 58 PRN, 20 tab, Anxiety, Substituti on Allowed lisinopril No Roni 2.5 mg, Me moria 5-27 Griffin 0.5 tab, l 03:00: Azucena Route: PO, Her telles 00 Drug form: TAB, Q12H, Start date: 03/25/12 22:00:00, Duration: 30 day, Stop date: 04/24/12 21:00:00 aspirin 325 2011- No Roni 325 mg, 1 Memoria mg tablet, 5-27 Griffin tab, l enteric 03:00: Azucena Route: PO, [place] coated 00 Drug form: TAB, Daily, Start date: 03/25/12 22:00:00, Duration: 30 day, Stop date: 04/24/12 9:00:00 atorvastati No Roni 80 mg, 1 Memoria n 5-27 Griffin tab, l 03:00: Azucena Route: PO, Her telles 00 Drug form: TAB, Bedtime, Start date: 03/25/12 22:00:00, Duration: 30 day, Stop date: 04/24/12 21:00:00 morphine 2011-0 No Roni 2 mg, 1 Ronny dalia Sulfate 5-27 Griffin mL, Route: l 03:00: Azucena IVP, Drug Herm peri 00 form: INJ, ONCE, Start date: 03/25/12 22:00:00, Stop date: 03/25/12 22:00:00 carvedilol No Roni 3.125 mg, Memoria 5-27 Griffin 1 tab, l 02:00: Azucena Route: PO, Her telles 00 Drug form: TAB, Q12H, Start date: 03/25/12 21:00:00, Duration: 30 day, Stop date: 04/24/12 9:00:00 LORAzepam 2011-0 No Roni 2 mg, 1 Mem oria 5-27 Griffin mL, Route: l 01:52: Azucena PO, Drug Lianne nn 00 form: SUSP, Bedtime, PRN Insomnia, Start date: 03/25/12 20:52:00, Stop date: 04/24/12 20:51:00 Nubain 2011-0 No Jamel 2 mg, 0.2 Memori a 5-27 Rishabh mL, Route: l 01:04: Trey IVP, Drug Casimiro n 00 form: INJ, Q3H, PRN Pain Score 1-3, Start date: 03/25/12 20:04:00, Duration: 30 day, Stop date: 04/24/12 20:03:00 nitroglycer 2011-0 No Roni 0.4 mg, 1 Memoria in SL Tab 5-27 Griffin tab, l 01:04: Azucena Route: SL, Her telles 00 Drug form: TAB, Q5Min, PRN Chest Pain, Start date: 03/25/12 20:04:00, Duration: 3 doses or times, Stop date: Limited # of times Sodium 2011- No Salim F 500 mL, Memor ia Chloride 5-27 Dabaghi Rate: 30 l 0.9% IV 500 01:04: ml/hr, Herm peri mL 00 Infuse over: 16.7 hr, Route: IV, Dosing Weight 79.545 kg, Total Volume: 500, Start date: 03/25/12 20:04:00, Duration: 30 day, Stop date: 04/24/12 20:03:00 Heparin - 2011-0 No Salim F 25,000 Mem oria infusion 5-27 Dabaghi unit, 500 l (ACS 01:04: mL, Rate: [place] Protocol) 00 Start at heparin 13 25,000 units/kg/h units in r - adjust D5W 500 mL per ACS Premix protocol, 25,000 unit Route: IV, Total Volume: 500 ml, Start date: 03/25/12 20:04:00, Duration: 30 day, Stop date: 04/24/12 20:03:00, Replace Every: 24 hr Simvastatin Simvastatin Yes U nivers TABS TABS ity of [place] Physici ans Warfarin Warfarin Yes Univers Sodium 2 MG Sodium 2 MG i ty of Oral Tablet Oral Tablet [place] Physici ans Plavix 75 Plavix 75 Yes Unive rs MG Oral MG Oral ity of Tablet Tablet [place] Physici ans Aspirin 81 Aspirin 81 Yes Uni vers MG TABS MG TABS ity of [place] Physici ans Lisinopril Lisinopril Yes Uni vers 5 MG Oral 5 MG Oral ity o f Tablet Tablet [place] Physici ans Carvedilol Carvedilol Yes Uni vers 6.25 MG 6.25 MG ity of Oral Tablet Oral Tablet [place] Physici ans Simvastatin Simvastatin Yes U nivers 40 MG Oral 40 MG Oral ity of Tablet Tablet [place] Physici ans LORazepam LORazepam Yes Unive rs TABS TABS ity of [place] Physici ans Entresto Entresto Yes Univers 24-26 MG 24-26 MG ity of Oral Tablet Oral Tablet [place] Physici ans Pantoprazol Pantoprazol Yes U nivers e Sodium e Sodium ity of TBEC TBEC [place] Physici ans Furosemide Furosemide Yes Uni vers 40 MG/4ML 40 MG/4ML ity o f SOLN SOLN [place] Physici ans Immunizations Ordered Immunization Filled Immunization Date Status Commen ts Source Name Name Influenza TIV (IM) 2013-08-02 Completed [facility] Influenza Trivalent 2013-08-02 Completed [place] 00:00:00 [facility] Pneumococcal 2010-08-09 Completed [facility] - Conjugate 7-Valent 00:00:00 [facility] Pneumococcal 2010-08-09 Completed [place] Conjugate 00:00:00 [facility] Vital Signs Vital Name Observation Time Observation Value Comments Source BMI Calculated 2020-02-21 21:05:00 Memori al [place] Respitory Rate 2020-02-21 20:41:00 Memori al [place] Systolic (mm Hg) 2020-02-21 20:41:00 Ronny rial [place] Diastolic (mm Hg) 2020-02-21 20:41:00 Mem orial [place] Systolic (mm Hg) 2020-02-21 19:03:00 Ronny rial [place] Diastolic (mm Hg) 2020-02-21 19:03:00 Mem orial [place] Temperature Oral (F) 2020-02-21 19:03:00 98.1 F [facility] [place] Respitory Rate 2020-02-21 19:03:00 Memori al [place] Systolic (mm Hg) 2020-02-21 16:32:00 Ronny rial [place] Diastolic (mm Hg) 2020-02-21 16:32:00 Mem orial [place] Respitory Rate 2020-02-21 16:32:00 Memori al [place] BMI Calculated 2020-02-21 15:32:00 Memori al [place] Height 2020-02-21 15:08:00 175.26 cm [facility] [place] BMI Calculated 2020-02-21 15:08:00 Memori al [place] Weight 2020-02-21 15:08:00 [facility] [place] Heart Rate 2020-02-21 15:08:00 [facility] [place] Temperature Oral (F) 2020-02-21 15:08:00 97.6 F [facility] [place] Diastolic (mm Hg) 2012-03-29 15:37:00 Mem orial [place] Systolic (mm Hg) 2012-03-29 15:37:00 Ronny rial [place] Respitory Rate 2012-03-29 15:37:00 Memori al [place] Diastolic (mm Hg) 2012-03-29 13:57:00 Mem orial [place] Respitory Rate 2012-03-29 13:57:00 Memori al [place] Systolic (mm Hg) 2012-03-29 13:57:00 Ronny rial [place] Respitory Rate 2012-03-29 13:14:00 Memori al [place] Temperature Oral (F) 2012-03-29 13:14:00 98.3 F [facility] [place] Systolic (mm Hg) 2012-03-29 12:00:00 Ronny rial [place] Diastolic (mm Hg) 2012-03-29 12:00:00 Mem orial [place] Temperature Oral (F) 2012-03-29 09:00:00 99.2 F [facility] [place] Temperature Oral (F) 2012-03-29 04:00:00 99.4 F [facility] [place] Height 2012-03-26 01:52:00 175.26 cm [facility] [place] Weight 2012-03-26 01:52:00 [facility] [place] Procedures Procedure Date / Time Performed Performing Clinician [facility] Spine lumbar wo 2019-04-26 00:[facility] [id number] Physicians Plan of Care Planned Activity Planned Date Details Comments Source Future Scheduled 2021-05-31 INFLUENZA VACCINE [place] [facility] Test 00:00:00 [code = INFLUENZA VACCINE] Future Scheduled 2015-10-31 SHINGLES VACCINES [place] [facility] Test 00:00:00 (#2) [code = SHINGLES VACCINES (#2)] Future Scheduled 1952 COVID-19 VACCINE (1) Micheal schwartz [employer] Test 00:00:00 [code = COVID-19 VACCINE (1)] Encounters Start End Encounter Admission Attending Care Care Encounter Source Date/Time Date/Time Type Type Clinicians Facility Department ID 2019-06-06 Outpatient [id number] MH 12:34:12 [facility] 2021-03-10 2021-03-10 [facility] [id number] 2021-03-10 2021-03-10 [facility] [id number] 2021-01-23 2021-01-23 [facility] Kain[facility] [id number] 00:00:00 00:00:00 Loki [id number] 2020-02-21 2020-02-21 Outpatient Ajibachetan, [facility] [id number] 09:59:17 15:45:00 Tae 01 [place] 2020-02-21 2020-02-21 Outpatient E [facility]BL MED [id number] [facility] 11:41:00 11:41:00 2019-04-26 2019-04-26 Appointmen FERNIE FRY [facility]opedics [id number] [facility] 12:30:00 12:30:00 t; Nilesh WATERS ARMIN CHAMBERLAIN [place] ANDREW, M.D. Physici M.D. ans 2018-04-13 2018-04-13 Appointmen ANG ARANDA UTP [id number] Univers 13:00:00 13:00:00 t; alex ORDAZ M.D., RICHARD, Physi ci M.D. ans 2018-04-05 2018-04-05 Appointmen [facility] [id number] Univers 13:00:00 13:00:00 SAUMYA Case M.D. itdarly of Eliza KERNS [facility] ans Results Test Description Test Time Test Comments Results Result Comments Source CARDIAC ENZYMES 2020-02-21 <0.02 Memorial 20:00:00 [place] HEMATOLOGY 2020-02-21 0.8 Memorial 15:47:00 [place] HEMATOLOGY 2020-02-21 0.5 Memorial 15:47:00 [place] URINE AND STOOL 2020-02-21 Clear (02/21/20 Memor ial 15:47:00 10:47 AM) [place] URINE AND STOOL 2020-02-21 15:47:00 Test Item Value Reference Range Interpretation Comme nts UA Spec Grav (test code = UA Spec Grav) 1.003 1 [facility] [id number] 15:47:00 Test Item Value Reference Range Interpretation Comments UA pH (test code = UA pH) 6.0 1 5.0-8.0 [facility] [id number] 15:47:00Negative *NA*(02/21/20 10:47 AM)[facility] [id number] 15:47:00Small *ABN*(02/21/20 10:47 AM)[facility] [id number] 15:47:00Negative (02/21/20 10:47 AM) [facility] [id number] 15:47:00Negative (02/21/20 10:47 AM) [facility] [id number] 15:47:00<1[facility] [id number] 15:47:00<1[facility] HermannCARDIAC [id number] 15:47:00 78[facility]ann[facility]ARDIAC [id number] 15:47:00<0.02[facility] CARDIAC SWBOKWY7972-52-57 15:47:57350Kydhtuvr HermannCHEM BYKYT4513-53-20 15:47:54846Njqjbtur HermannCHEM QFLYI4175-75-15 15:47:0023[facility] HermannCHEM TODCP9098-72-12 15:47:001.24[facility] HermannCHEM UNKQG1399-15-27 15:47:35780 [facility]ann[facility] WMDQS4540-46-44 15:47:004.6[facility] HermannCHEM PANEL 2020-02-21 15:47:49467Hwdbxbhn HermannCHEM AZILZ0013-91-41 15:47:0030[facility] HermannCHEM XGJUB1232-15-53 15:47:008.7[facility] HermannCHEM TDGYP0150-83-82 15:47:007.2[facility] HermannCHEM DQURH8764-99-11 15:47:003.8[facility] HermannCHEM ENXRH9412-77-05 15:47:0030[facility] HermannCHEM MRQZB2382-77-57 15:47:0027 [facility]ann[facility] ECVGS0402-26-23 15:47:0066[facility] HermannCHEM PANEL 2020-02-21 15:47:000.5[facility] HermannCHEM VDTEH8787-84-90 15:47:007.6[facility] HermannCHEM ELSNQ9021-75-57 15:47:00 Test Item Value Reference Range Interpretation Comments B/C Ratio (test code = B/C Ratio) 19 1 6-25 [facility]annCHEM KOPZB1495-61-65 15:47:003.4[facility] HermannCHEM PANEL 2020-02-21 15:47:00 Test Item Value Reference Range Interpretation Comments A/G Ratio (test code = A/G Ratio) 1.1 1 0.7-1.6 [facility]annCHE[facility] ZYCPD7965-55-73 15:47:0055[facility] HermannCHEM PANEL 2020-02-21 15:47:002.6[facility] HermannCHEM DXNFN3177-52-42 15:47:003.4[facility] NfzfcefKOUXXURYMQ6138-63-45 15:47:004.8[facility] MuizlzxDSBGZRQAJZ3749-57-73 15:47:004.86[facility] HhlelphZBDWTZILIG9331-14-71 15:47:0016.3[facility] UQCXVTOODS5454-37-62 15:47:0048.4[facility] ZbwpnkrIJRJAFQZKT4022-20-86 15:47:00 99.5[facility] GhxcaftTYMBNXRRDT5247-61-92 15:47:00 Test Item Value Reference Range Interpretation Comments MCH (test code = MCH) 33.4 pg 27.0-31.0 [facility] OuavypyFZNNVZTPVB7752-93-76 15:47:0033.6[facility] HermannHEMATOLOGY 2020-02-21 15:47:0014.3[facility] LykrwmdNANDSKYPHZ9502-58-64 15:47:86815Hfthmehk QiigcweCGXRYPTTMF2438-03-39 15:47:007.7[facility] JnzcotjCBKMYNYOJR7316-05-67 15:47:00 Test Item Value Reference Range Interpretation Comments PT (test code = PT) 21.5 s 12.0-14.7 [facility] NsigyekBANVUMPWYA1762-89-61 15:47:00 Test Item Value Reference Range Interpretation Comments INR (test code = INR) 1.84 1 0.85-1.17 [facility] AmyleveHJABPHWNEL5001-12-20 15:47:00 Test Item Value Reference Range Interpretation Comments PTT (test code = PTT) 37.1 s 22.9-35.8 [facility] OaqeprqPLZAZMZOET2357-46-56 15:47:0069.8[facility] HermannHEMATOLOGY 2020-02-21 15:47:0017.4[facility] BzmcwkxCVQZDJGYME4873-10-73 15:47:0011.4[facility] IomcrxwZVWAGKMGCY2905-07-54 15:47:001.0[facility] EglmgmvFCAFQQTCXI5453-01-37 15:47:000.4[facility] UaiegfjEHZKJCOHIS4367-43-90 15:47:003.3[facility][U] XRAY SPINE LUMBOSACRAL 2 OR 3 VWS [id number] 12:06:00Images acquired, not reported on this accession number.[facility], VIRTUAL COLONOSCOPY, DIAGNOSTIC WITHOUT [id number] 12:39:00FINAL REPORT HISTORY : V58.61 Technique: Multiple axial images of the abdomen and pelvis were performed without the administration of IV or oral contrast after the insufflation of the colon with air. Images were obtained in both the supine and prone positions. This exam was performed according to our departmental dose optimization program which includes automated exposure contro l, adjustment of the mA and/or kV according [...] bilateral perinephric stranding/edema. Arising from the upper poleof the right kidney, there is a 1.5 [...] fluid or free air in the abdomen orpelvis. No findings of any bowel obstruction. The small bowel is within normal limits. The appendix is visualized. There are no CT findings to suggest appendicitis. Some likely radiation seeds are seen within/around the prostate gland. The seminal vesicles are grossly within normal limits. A stentis identified in the right external iliac artery. [...] incomplete distention and/or mild colonic diverticulosis. No p ericolonic inflammatory changes are seen. Of note, evaluation for a mass at this area of thickening is limited. As clinically warranted, findings can be correlated with colonoscopy. However, taking into account the preceding limitations, no definite obstructing or constricting colonic masses are visual ized. Impression: Persistent mild wall thickening of the sigmoid colon that may be accounted for by incomplete distention and/or mild colonic diverticulosis. The extent and degree of wall thickening has diminished as compared to the prior exam. No definite obstructing or constricting colonic masses are identified. Please see above for details. Signed: Evelyn Fajardo MDReport Verified Date/Time: 02/22/2018 12:39:49 Reading Location: [address] Reading Room CHEMISTRY 2012-03-29 06:59:001.6[facility] MvmrkeaYQNXQSLXG5266-42-37 06:59:003.0[facility] AitkxayVJGNEBNVP1571-86-08 06:59:04550Riypozdm MqznajpKRGQHOURE0803-55-40 08:50:001.6[facility] AruzeocAZOATCTMS2171-21-94 08:50:006.4[facility] EBUKDIDVI9820-06-30 08:50:93527Lmpptcnh JyrbwirNFOZZVEWG8957-00-88 08:50:002.0 [facility] PskcjqhPMFWKTSYF2741-88-62 08:50:0023.00[facility] HermannCHEMISTRY 2012-03-28 08:50:004.180[facility] XfrybjhYDKLRIWQF3734-85-57 08:50:0011.7[facility] EbbhbknZGLWLDPCO4519-51-09 08:50:0028[facility] OxbvhobENIESMXVZ0050-27-14 08:50:007.9[facility] RtcsyyrYUMXANEOH1773-08-84 08:50:18834Zgozcfwz [facility] FCCBWVHDN3169-49-51 08:50:004.7[facility] KiuimcvINUUSMDDU3229-35-68 08:50:45677 [facility] RcfhgttWUBBHRJHT3416-91-02 08:50:001.1[facility] HermannCHEMISTRY 2012-03-28 08:50:0021[facility] OyqjfsyRZIRITKUO8833-98-69 08:50:69565Lcpngjkv RrvvfpoMHXPLNEHN9844-71-18 08:50:002.8[facility] YbqhrgqIDQXJYYBWK7749-44-06 08:50:00 Test Item Value Reference Range Interpretation Comments PT (test code = PT) 15.8 s 12.0-14.7 H [facility] GskqywbLZFBLFBBVM3230-36-52 08:50:001.26[facility] HermannHEMATOLOGY 2012-03-28 08:50:00 Test Item Value Reference Range Interpretation Comments PTT (test code = PTT) 30.2 s 22.9-35.8 N [facility] IpigkawHQFNEQAMNG2384-71-32 08:50:003.93[facility] HermannHEMATOLOGY 2012-03-28 08:50:0012.4[facility] VaggcyyKOFJIRQZKU8844-08-24 08:50:0088[facility] RfotsbsEWZTFCUWMD8658-23-43 08:50:00 Test Item Value Reference Range Interpretation Comments MCH (test code = MCH) 31.6 pg 27.0-31.0 H [facility] BjzsnzzOVIJUCHGNO4886-12-74 08:50:0033.3[facility] HermannHEMATOLOGY 2012-03-28 08:50:008.1[facility] DepygftSINXCNLZAJ3779-74-15 08:50:0094.8[facility] KsddtecZEZALKRUPQ8556-88-03 08:50:0014.0[facility] BpqnshvPRRXMSXDGI8194-99-73 08:50:007.3[facility] OuxladtJGFGNXFWXB8194-20-95 08:50:0037.2[facility] JRTUNHRMZ3538-32-48 10:24:003.2[facility] MijuiaoFQVBXRLSC4943-95-34 10:24:0034.7 [facility] DtpasbxRJPKOFDHF9401-55-06 10:24:52987Mlyuaptj HermannCHEMISTRY 2012-03-27 10:24:005.710[facility] PmykylwCTJWKFLBZ5359-21-17 10:24:007.8[facility] MgsgzhqVEVYUSPPG8088-65-97 10:24:0027[facility] AcypqxcAMENPPMIK7144-94-77 10:24:97201Kmfnueax FxujhdmVBYDTESXE7653-79-27 10:24:004.6[facility] ZYKWOOEUQ3216-13-38 10:24:0020[facility] LaljsdvAJTHNPXMB1706-25-49 10:24:25106 [facility] NksvafhXOAOISPNJ6157-31-90 10:24:12181Vsgzxuil HermannCHEMISTRY 2012-03-27 10:24:001.4[facility] ArnmjrcOIAHUFWEI8250-72-24 10:24:0012.6[facility] BnewppuEZTBSUGKF7416-84-73 10:24:002.2[facility] AjcddsfKVJXTXFGP7532-38-34 10:24:471061Zpuhmiym CtdeajmPWAUWBSNK7384-94-57 10:24:002.2[facility] SJKSKIKBOM9076-75-84 10:24:00 Test Item Value Reference Range Interpretation Comments PT (test code = PT) 16.1 s 12.0-14.7 H [facility] PsfplxsAHEZRQGZMZ4885-95-39 10:24:00 Test Item Value Reference Range Interpretation Comments PTT (test code = PTT) 65.5 s 22.9-35.8 H [facility] AvzmgqdNNCNLLKGNN5151-29-14 10:24:001.29[facility] HermannHEMATOLOGY 2012-03-27 10:24:007.6[facility] YwznyxrNHRWNNBLQB3396-29-33 10:24:0012.2[facility] MimvkkrGFLHZRAYMP5365-98-52 10:24:003.87[facility] KjmhpnkNMFLBOGZCI3864-67-91 10:24:0036.5[facility] DytycicPSWBIFDMAE5481-96-68 10:24:00 Test Item Value Reference Range Interpretation Comments MCH (test code = MCH) 31.5 pg 27.0-31.0 H [facility] GmnvmmbMPWKOHRLPZ3911-70-74 10:24:0033.5[facility] HermannHEMATOLOGY 2012-03-27 10:24:0094.1[facility] ThbemvaABPHXLRCLY3162-41-73 10:24:0014.2[facility] AiwygqnGAUJJFQXCR1738-09-66 10:24:0094[facility] CimqzaaJDINMLCLUF9255-11-52 10:24:007.5[facility] WrcsixrDNGSTRNRSW2159-50-52 05:13:00 Test Item Value Reference Range Interpretation Comments PT (test code = PT) 16.0 s 12.0-14.7 H [facility] TqjxbxfIYUAIINGBU6163-00-18 05:13:001.28[facility] HermannHEMATOLOGY 2012-03-27 05:13:00 Test Item Value Reference Range Interpretation Comments PTT (test code = PTT) 54.5 s 22.9-35.8 H [facility] IoaqyncZJJPZKHDF4706-19-13 15:18:00>40 ng/mL 10*CRIT*(03/26/2012 10:18:00)[facility] WusdytgNWYKLHONY0742-98-86 15:18:008.960[facility] MJEHQQWEB0387-73-79 15:18:64741Aqnutnkr HermannBACTERIAL - YFACTWKJ5272-77-01 09:00:00Positive 1, 2*ABN*(03/26/2012 04:00:00)[facility] HermannCHEMISTRY 2012-03-26 08:50:00>40 ng/mL 11*CRIT*(03/26/2012 03:50:00)[facility] JSWDCFOAX4449-52-29 08:50:0014.5[facility] LymtgitGIMYORORR1051-48-82 08:50:22302 [facility] YdzebnzXBRPXXKWZ9618-18-33 08:50:001.3[facility] HermannCHEMISTRY 2012-03-26 08:50:0024[facility] FwoeeaeUMXPAPEZK1980-92-85 08:50:69059Wjnlmtpl UcjysmnELONNTRJP9620-37-32 08:50:008.0[facility] ZvtfuqtIOESSCQCT6696-74-64 08:50:0024[facility] KjihpopDZAXVONIU8699-14-42 08:50:71038Doshcpcu [place] KXRTFSOWC2976-95-06 08:50:004.5[facility] VzsfthfOIMAQUMHP5046-10-71 08:50:002.2 [facility] ZobzbkgVERBYIZMT3248-06-92 08:50:003.9[facility] HermannCHEMISTRY 2012-03-26 08:50:81472Muariphs KeopaqjCLRIHTDWH0773-50-74 08:50:002.43[facility] MvoiarxZLQQNDMYI9407-02-59 08:50:0058[facility] YiwieayTEFVPLAMP2581-85-55 08:50:0046[facility] VokftnrYDVHEQUJO2096-72-78 08:50:10684Nnwkxqxj [facility] WJAYNIPYK6739-99-57 08:50:0041[facility] FqyguuaVRIXNXIQG3317-44-30 08:50:006.4 [facility] AjlqzqcGAHLXOXMKM4059-66-99 08:50:007.9[facility] HermannHEMATOLOGY 2012-03-26 08:50:31917Oyruuful BbxfwhsRUKJZDJMEX4257-58-43 08:50:0014.5[facility] IgklwzgNZGQEKMJPW7908-59-36 08:50:0033.5[facility] HgrdnneJGADVEPPZS5158-88-98 08:50:00 Test Item Value Reference Range Interpretation Comments MCH (test code = MCH) 31.5 pg 27.0-31.0 H [facility] TdicxseHDSDICQQEH5045-82-40 08:50:0094.1[facility] HermannHEMATOLOGY 2012-03-26 08:50:0039.1[facility] DbhfhujDOHXHZAQNL6565-12-04 08:50:0013.1[facility] QjbtufnVFBQJNAITF0249-25-43 08:50:004.16[facility] PjprjwoLPZNFMTMBP4931-83-87 08:50:007.4[facility] ZdmnhagBYIMQGNLHC6448-70-24 08:50:000.0[facility] [place] JTVPZPEVIU9824-75-08 08:50:000.0[facility] MdpthycEAEGHYZXPK5724-99-70 08:50:000.0 [facility] IfmtvteMNLOYJVMQZ8742-44-16 08:50:005.6[facility] HermannHEMATOLOGY 2012-03-26 08:50:000.3[facility] BvrviruGCFTKDGHJN4463-97-39 08:50:000.9[facility] RnsljwxNGWWILNEND8874-47-61 08:50:000.9[facility] AybusumXVUCAAJFIL6550-68-93 08:50:0075.8[facility] GdzuobvDERDTJWBWJ4360-39-87 08:50:0012.1[facility] KADBMQSEHH7152-27-00 08:50:0011.8[facility] LtmnrkfFHESJVRYM9436-21-72 00:36:0040 [facility] YwtzlcfPQYOMTEZZ5428-72-65 00:36:0044[facility] HermannCHEMISTRY 2012-03-26 00:36:54252Aylypdwx ZwymmvhVZFHLYEDJ2129-02-32 00:36:0059[facility] NyvgmfaDQBOHUBZU6606-69-70 00:36:002.52[facility] FzxrooeMBMYONNBG0275-84-43 00:36:006.7[facility] SlqoemxTKSFYDLEGR8199-67-41 00:36:000.4[facility] [place] RTPEOYKEMH7505-27-94 00:36:000.2[facility] HetvokiCIZVWNEUGJ7382-75-88 00:36:000.0 [facility] HluvaoyVXZZZEFHOO7766-07-88 00:36:008.3[facility] HermannHEMATOLOGY 2012-03-26 00:36:000.0[facility] YysouxdSOBUCZXPXX3730-32-93 00:36:000.0[facility] CyevqroDJSZLSMAYI6559-43-90 00:36:004.8[facility] PcpdwqdZMOXKZNEUS6434-77-77 00:36:002.8[facility] XtywiztOUYJXOATKJ6444-24-54 00:36:000.0[facility] LIBQVTNKNK0441-69-60 00:36:0092.4[facility] [place]
--- NOTE | 2021-03-20 08:56 | RAD REPORT ---
EXAM DESCRIPTION: RAD - Chest Single View - 03/20/2021 8:47 am CLINICAL HISTORY: Diaphoresis;SOB Chest pain. COMPARISON: Chest Single View dated 06/22/2019 FINDINGS: Portable technique limits examination quality. The lungs are grossly clear. The heart is mildly prominent in size. Extensive pacer/defibrillator wir ing is present.Aortic atherosclerosis. IMPRESSION: No acute intrathoracic process suspected.
[2021-03-20 09:02] LABS: Absolute Lymphocytes (CBC) 0.7 K/uL (0.7-4.9); Basophils % 0.5 % (0-1.3); Lymphocytes % 17.4 % (15.3-44.8); MPV 8.7 fL (7.6-11.3); RBC Red Blood Cell Count 4.31 M/uL (4.33-5.43)
[2021-03-20 09:10] LABS: Protime INR 3.04
[2021-03-20 09:24] LABS: ALT/SGPT 24 U/L (12-78); AST/SGOT 17 U/L (15-37); Albumin 3.6 g/dL (3.4-5.0); Alkaline Phosphatase 59 U/L (45-117); BUN Blood Urea Nitrogen 28 mg/dL (7-18); Bicarbonate 28 mmol/L (21-32); Bilirubin Direct 0.2 mg/dL (0-0.2); Bilirubin Total 0.6 mg/dL (0.2-1.0); Glucose Level 108 mg/dL (74-106); Magnesium 2.3 mg/dL (1.8-2.4); NT PRO-BNP 1443 pg/mL (<450); Potassium 4.1 mmol/L (3.5-5.1); Protein, Total 6.6 g/dL (6.4-8.2); Sodium Level 143 mmol/L (136-145); Troponin (Emerg Dept Use Only) < 0.02 ng/mL (0.0-0.045)
--- NOTE | 2021-03-20 10:08 | EDPHYS ---
Physician Documentation [facility] Name: Mango Arriaza Age: 80 yrs Sex: Male : 1940 Arrival Date: 03/20/2021 Time: 08:05 Bed 8 Private MD: ED Physician Shaun Case HPI: 03/20 09:13 This 80 yrs old Male presents to ER via EMS with complaints of Shortness Of kdr Breath. 09:13 The patient has shortness of breath at rest. Duration: The symptoms are intermittent, kdr with no pattern. The patient's shortness of breath is aggravated by nothing, is alleviated by elevating head. Associated signs and symptoms: Pertinent positives: diaphoresis, Pertinent negatives: chest pain, non-productive cough, productive cough, dizziness, fever, hemoptysis, loss of consciousness, nausea, numbness in extremities. Severity of symptoms: At their worst the symptoms were moderate just prior to arrival, in the emergency department the symptoms have improved markedly. The patient has not experienced similar symptoms in the past. 09:26 Onset: The symptoms/episode began/occurred suddenly, just prior to arrival, The patient kdr states that he awoke at 2:00 AM today with SOB and diaphoresis. It slowly improved and he was able to get back to sleep but then he awoke again at about 6:00 AM in the same state. he had not had these s/s exactly before and has otherwise been well and in his usual state of health until today. He current feels like he is at or near baseline. The patient has not recently seen a physician. Historical: - Allergies: 08:13 No Known Allergies; hb - Home Meds: 08:51 warfarin 6 mg Oral tab 1 tab once daily [Active]; Entresto 24-26 mg Oral tab [Active]; ld1 lorazepam 2 mg Oral tab 1 tab once daily [Active]; pantoprazole 40 mg Oral TbEC 1 tab once daily [Active]; metoprolol tartrate 25 mg Oral tab [Active]; simvastatin 40 mg Oral tab [Active]; - PMHx: 08:13 Atrial Fib; CHF; High Cholesterol; Hypertension; Myocardial infarction; TIA; hb - PSHx: 08:13 pacemaker/defib; TURP; hb - Immunization history:: Adult Immunizations up to date, Client reports receiving the 2nd dose of the Covid vaccine. - Social history:: Smoking status: Patient denies any tobacco usage or history of. Smoking status: Patient denies any tobacco usage or history of. ROS: 09:26 Constitutional: Negative for fever, chills, and weight loss, Eyes: Negative for injury, kdr pain, redness, and discharge, ENT: Negative for injury, pain, and discharge, Neck: Negative for injury, pain, and swelling, Cardiovascular: Negative for chest pain, palpitations, and edema, Abdomen/GI: Negative for abdominal pain, nausea, vomiting, diarrhea, and constipation, Back: Negative for injury and pain, : Negative for injury, bleeding, discharge, and swelling, MS/Extremity: Negative for injury and deformity, Neuro: Negative for headache, weakness, numbness, tingling, and seizure activity. Psych: Negative for depression, anxiety, suicide ideation, homicidal ideation, and hallucinations, Allergy/Immunology: Negative for hives, rash, and allergies, Endocrine: Negative for neck swelling, polydipsia, polyuria, polyphagia, and marked weight changes, Hematologic/Lymphatic: Negative for swollen nodes, abnormal bleeding, and unusual bruising. 09:26 Respiratory: Positive for shortness of breath, at rest. Negative for cough, dyspnea on exertion, hemoptysis, orthopnea, pleurisy, sputum production, wheezing. 09:26 Skin: Positive for diaphoresis, Negative for abscesses, avulsion, discoloration, ecchymosis, erythema, hematoma, jaundice, laceration(s), lesions, pallor, puncture. Exam: 09:26 Constitutional: This is a well developed, well nourished patient who is awake, alert, kdr and in no acute distress. Head/Face: Normocephalic, atraumatic. Eyes: Pupils equal round and reactive to light, extra-ocular motions intact. Lids and lashes normal. Conjunctiva and sclera are non-icteric and not injected. Cornea within normal limits. Periorbital areas with no swelling, redness, or edema. Neck: Trachea midline, no thyromegaly or masses palpated, and no cervical lymphadenopathy. Supple, full range of motion without nuchal rigidity, or vertebral point tenderness. No Meningismus. Chest/axilla: Normal chest wall appearance and motion. Nontender with no deformity. No lesions are appreciated. Cardiovascular: Regular rate and rhythm with a normal S1 and S2. No gallops, murmurs, or rubs. Normal PMI, no JVD. No pulse deficits. Abdomen/GI: Soft, non-tender, with normal bowel sounds. No distension or tympany. No guarding or rebound. No evidence of tenderness throughout. Back: No spinal tenderness. No costovertebral tenderness. Full range of motion. Skin: Warm, dry with normal turgor. Normal color with no rashes, no lesions, and no evidence of cellulitis. MS/ Extremity: Pulses equal, no cyanosis. Neurovascular intact. Full, normal range of motion. Neuro: Awake and alert, GCS 15, oriented to person, place, time, and situation. Cranial nerves II-XII grossly intact. Motor strength 5/5 in all extremities. Sensory grossly intact. Cerebellar exam normal. Normal gait. Psych: Awake, alert, with orientation to person, place and time. Behavior, mood, and affect are within normal limits. 09:26 Respiratory: Exam negative for the patient does not display signs of respiratory kdr distress, Respirations: normal, Breath sounds: rales, that are mild, are scattered, are heard diffusely, wheezing: is not appreciated. 10:10 ECG was reviewed by the Attending Physician. kdr Vital Signs: 08:07 BP 115 / 76; Pulse 70; Resp 22; Pulse Ox 98% on R/A; Weight 65.77 kg; Height 5 ft. 9 hb in. (175.26 cm); Pain 0/10; 08:51 BP 110 / 76; Pulse 71; Resp 17; Temp 98.0(O); Pulse Ox 98% on R/A; Weight 65.77 kg; ld1 Height 5 ft. 9 in. (175.26 cm); Pain 0/10; 09:41 BP 114 / 73; Pulse 74; Resp 17; Pulse Ox 98% on R/A; Pain 0/10; ld1 10:33 BP 118 / 74; Pulse 70; Resp 18; Pulse Ox 100% on R/A; ld1 08:51 Body Mass Index 21.41 (65.77 kg, 175.26 cm) ld1 MDM: 10:07 Patient medically screened. kdr 10:09 Differential diagnosis: Anemia Anxiety Reaction Bronchitis CHF exacerbation, Myocardial kdr Infarction. Data reviewed: vital signs, nurses notes, lab test result(s), EKG, radiologic studies. Counseling: I had a detailed discussion with the patient and/or guardian regarding: the historical points, exam findings, and any diagnostic results supporting the discharge/admit diagnosis, lab results, radiology results, the need for outpatient follow up. Response to treatment: the patient's symptoms have markedly improved after treatment, the patient's symptoms have resolved after treatment, the patient is not short of breath, the patient's condition has returned to base line. Special discussion: I discussed with the patient/guardian in detail that at this point there is no indication for admission to the hospital. It is understood, however, that if the symptoms persist or worsen the patient needs to return immediately for re-evaluation. 03/20 08:20 Order name: Basic Metabolic Panel; Complete Time: [facility] 03/20 08:20 Order name: CBC with Diff; Complete Time: [facility] 03/20 08:20 Order name: LFT's; Complete Time: [facility] 03/20 08:20 Order name: Magnesium; Complete Time: [facility] 03/20 08:20 Order name: NT PRO-BNP; Complete Time: [facility] 03/20 08:20 Order name: PT-INR; Complete Time: [facility] 03/20 08:20 Order name: Troponin (emerg Dept Use Only); Complete Time: [facility] 03/20 08:20 Order name: XRAY Chest (1 view); Complete Time: [facility] 03/20 08:20 Order name: EKG; Complete Time: [facility] 03/20 08:20 Order name: Cardiac monitoring; Complete Time: [facility] 03/20 08:20 Order name: EKG - Nurse/Tech; Complete Time: 08: [facility] 03/20 08:20 Order name: IV Saline Lock; Complete Time: [facility] 03/20 08:20 Order name: Labs collected and sent; Complete Time: [facility] 03/20 08:20 Order name: O2 Per Protocol; Complete Time: [facility] 03/20 08:20 Order name: O2 Sat Monitoring; Complete Time: [facility] EC:10 Rate is 77 beats/min. Rhythm is regular, Paced with No ectopy. Clinical impression: No kdr evidence of ischemia and Paced. Administered Medications: No medications were administered Disposition: 03/20/21 10:07 Discharged to Home. Impression: Shortness of breath, Heart failure - Minimal to mild. - Condition is Stable. - Discharge Instructions: Shortness of Breath, Inaw-em-Qpan, Heart Failure, Ttcx-ms-Qszd. - Medication Reconciliation Form, Thank You Letter form. - Follow up: Private Physician; When: 2 - 3 days; Reason: If symptoms return, Further diagnostic work-up, Recheck today's complaints, Continuance of care, Re-evaluation by your physician. - Problem is new. - Symptoms are resolved. Signatures: Dispatcher [employer] EDSD Shaun Case MD MD [facility] Cheryl Valdez RN RN Mervat Hdz RN RN ld1 Corrections: (The following items were deleted from the chart) 10:36 10:07 03/20/2021 10:07 Discharged to Home. Impression: Shortness of breath; Heart ld1 failure - Minimal to mild. Condition is Stable. Forms are Medication Reconciliation Form, Thank You Letter, Antibiotic Education, Prescription Opioid Use. Follow up: Private Physician; When: 2 - 3 days; Reason: If symptoms return, Further diagnostic work-up, Recheck today's complaints, Continuance of care, Re-evaluation by your physician. Problem is new. Symptoms are resolved. kdr
--- NOTE | 2021-03-20 10:08 | ER ---
Nurse's Notes [facility] Name: Mango Arriaza Age: 80 yrs Sex: Male : 1940 Arrival Date: 03/20/2021 Time: 08:05 Bed 8 Private MD: Diagnosis: Shortness of breath;Heart failure-Minimal to mild Presentation: 03/20 08:07 Chief complaint: EMS states: Woke from sleep at 0200 diaphoretic and SOB, worse after hb getting out of bed at 0600. Hx of CHR, pacemaker, AFIB, reduced EF. Coronavirus screen: At this time, the client does not indicate any symptoms associated with coronavirus-19. Ebola Screen: No symptoms or risks identified at this time. Initial Sepsis Screen: Does the patient meet any 2 criteria? No. Patient's initial sepsis screen is negative. Does the patient have a suspected source of infection? No. Patient's initial sepsis screen is negative. Risk Assessment: Do you want to hurt yourself or someone else? Patient reports no desire to harm self or others. Onset of symptoms was March 20, 2021. 08:07 Method Of Arrival: [facility] 08:07 Acuity: EFREN 3 hb Triage Assessment: 10:35 General: Appears in no apparent distress. comfortable, Behavior is calm, cooperative, ld1 appropriate for age. Respiratory: Reports shortness of breath on exertion Onset: The symptoms/episode began/occurred this morning, the patient has mild shortness of breath. Historical: - Allergies: 08:13 No Known Allergies; hb - Home Meds: 08:51 warfarin 6 mg Oral tab 1 tab once daily [Active]; Entresto 24-26 mg Oral tab [Active]; ld1 lorazepam 2 mg Oral tab 1 tab once daily [Active]; pantoprazole 40 mg Oral TbEC 1 tab once daily [Active]; metoprolol tartrate 25 mg Oral tab [Active]; simvastatin 40 mg Oral tab [Active]; - PMHx: 08:13 Atrial Fib; CHF; High Cholesterol; Hypertension; Myocardial infarction; TIA; hb - PSHx: 08:13 pacemaker/defib; TURP; hb - Immunization history:: Adult Immunizations up to date, Client reports receiving the 2nd dose of the Covid vaccine. - Social history:: Smoking status: Patient denies any tobacco usage or history of. Smoking status: Patient denies any tobacco usage or history of. Screenin:51 Abuse screen: Denies threats or abuse. Denies injuries from another. Nutritional ld1 screening: No deficits noted. Tuberculosis screening: No symptoms or risk factors identified. Fall Risk None identified. IV access (20 points). Assessment: 08:43 General: Appears in no apparent distress. comfortable, Behavior is calm, cooperative, ld1 appropriate for age. Pain: Denies pain. Neuro: Level of Consciousness is awake, alert, obeys commands, Oriented to person, place, time, situation, Appropriate for age. Cardiovascular: Capillary refill < 3 seconds Patient's skin is warm and dry. Rhythm is regular. Respiratory: Airway is patent Respiratory effort is even, unlabored, Respiratory pattern is regular, symmetrical, Breath sounds are clear bilaterally. GI: Abdomen is flat, non-distended. : No signs and/or symptoms were reported regarding the genitourinary system. EENT: No signs and/or symptoms were reported regarding the EENT system. Musculoskeletal: No signs and/or symptoms reported regarding the musculoskeletal system. 09:41 Reassessment: Patient appears in no apparent distress at this time. No changes from ld1 previously documented assessment. Patient and/or family updated on plan of care and expected duration. Pain level reassessed. Patient is alert, oriented x 3, equal unlabored respirations, skin warm/dry/pink. Laying in bed watching TV waiting on results. Denies concerns at this time. Patient denies pain at this time. Vital Signs: 08:07 BP 115 / 76; Pulse 70; Resp 22; Pulse Ox 98% on R/A; Weight 65.77 kg; Height 5 ft. 9 hb in. (175.26 cm); Pain 0/10; 08:51 BP 110 / 76; Pulse 71; Resp 17; Temp 98.0(O); Pulse Ox 98% on R/A; Weight 65.77 kg; ld1 Height 5 ft. 9 in. (175.26 cm); Pain 0/10; 09:41 BP 114 / 73; Pulse 74; Resp 17; Pulse Ox 98% on R/A; Pain 0/10; ld1 10:33 BP 118 / 74; Pulse 70; Resp 18; Pulse Ox 100% on R/A; ld1 08:51 Body Mass Index 21.41 (65.77 kg, 175.26 cm) ld1 ED Course: 08:05 Patient arrived in ED. ds1 08:06 Shaun Case MD is Attending Physician. kdr 08:12 Triage completed. hb 08:13 Arm band placed on. hb 08:21 Mervat Hdz, RN is Primary Nurse. ld1 08:43 XRAY Chest (1 view) In Process Unspecified. EDMS 08:51 Patient has correct armband on for positive identification. Call light in reach. Side ld1 rails up X2. quality assurance monitor body on. Pulse ox on. NIBP on. Door closed. Noise minimized. Warm blanket given. 08:51 No provider procedures requiring assistance completed. Inserted saline lock: 20 gauge ld1 in right antecubital area, using aseptic technique. Blood collected. 10:34 IV discontinued, bleeding controlled, No redness/swelling at site. ld1 Administered Medications: No medications were administered Outcome: 10:07 Discharge ordered by . kdr 10:34 Discharged to home ambulatory. ld1 10:34 Condition: stable 10:34 Discharge instructions given to patient, Instructed on discharge instructions, follow up and referral plans. Demonstrated understanding of instructions, follow-up care. 10:36 Patient left the ED. ld1 Signatures: Dispatcher [employer] EDMS Shaun Case MD MD [facility] ds1 Cheryl Valdez, RN RN Mervat Hdz, RN RN ld1 Corrections: (The following items were deleted from the chart) 08:14 08:07 Chief complaint: EMS states: Woke from sleep at 0200 diaphoretic and SOB, worse hb after getting out of bed at 0600. Hx of CHR, pacemaker, reduced EF. hb 10:36 10:34 Respiratory: Reports pain with movement since 03/20/2021 Onset: The ld1 symptoms/episode began/occurred suddenly, the patient has mild shortness of breath ld1 10:36 10:34 General: Appears in no apparent distress. uncomfortable, Behavior is calm, ld1 cooperative, appropriate for age, ld1
[2021-03-20 10:44] VITALS: TEMP 98
[2021-03-20 10:47] VITALS: BP 118/74; O2SAT 100
== END 2021-03-20 10:36 | disposition home or self-care (01) ==
LOC: ER 08:04
DX: I50.9 Heart failure, unspecified (principal); I10 Essential (primary) hypertension; E78.00 Pure hypercholesterolemia, unspecified; I48.91 Unspecified atrial fibrillation; Z79.01 Long term (current) use of anticoagulants; Z95.810 Presence of automatic (implantable) cardiac defibrillator
CPT/HCPCS: 36415; 71045; 80048; 80076; 83735; 83880; 84484; 85025; 85610; 93005; 99284